=== PATIENT | female | born 1935 | race Caucasian/White ===

== ENCOUNTER 2020-05-18 17:22 | Inpatient (IN) | payer MEDICARE, OTHER, SELFPAY ==
[2020-05-18] VITALS (7 sets, daily range): BP systolic 125–148; BP diastolic 58–82; PULSE 86–101; RESP 15–30; TEMP 36.9–38.3; O2SAT 88–98; BMI 36.3
--- NOTE | 2020-05-18 17:35 | ED_ITS ---
HPI - SOB/Dyspnea General Chief Complaint: Dyspnea Stated Complaint: DIFF BREATHING Time Seen by Provider: 05/18/20 17:34 Source: patient and EMS Mode of arrival: EMS Limitations: no limitations History of Present Illness HPI Narrative: picked up by EMS, home health aid called, they found her to be 88% on 2.5L MD elicited complaint: shortness of breath and cough Pertinent past history: COPD Onset (ago): hour(s) Timing: constant Severity: moderate Known history of: COPD Treatment prior to arrival: bronchodilator (duoneb) Related Data Home oxygen amount: 2 liters Allergies Allergy/AdvReac Type Severity Reaction Status Date / Time pine nut [PINE NUT] Allergy Unknown RASH Unverified 04/20/20 17:53 Review of Systems Constitutional: Constitutional: Reports no additional constitutional complaints Eyes: Eyes: Reports no additional eye complaints ENT: Denies dizziness Cardiovascular: Cardiovascular: Reports no additional cardiovascular complaints Respiratory: Respiratory: Reports as per HPI Gastrointestinal: Gastrointestinal: Reports no additional gastrointestinal complaints Genitourinary: Genitourinary: Reports no additional female genitourinary complaints Musculoskeletal: Musculoskeletal: Reports no additional musculoskeletal complaints Integumentary/Breasts: Skin/Breast: Denies rash Neurologic: Reports system reviewed and no additional complaints, except as documented, Denies dizziness and Denies Sensory deficit (Neuro) Psychiatric: Psychiatric: Denies anxiety [facility] Past Medical History Medical History (Updated 05/18/20 @ 17:34 by Jamila Crouch) COPD (chronic obstructive pulmonary disease) Social History Social History Smoked in Last 30 Days: No Use of substances other than those prescribed or required for medical reasons: No Advance Directives: No Advance Directives Information Provided: Yes Physical Exam Vital Signs: Vital Signs: Vital Signs Temp Pulse Resp BP Pulse Ox 05/18/20 20:18 90 18 96 05/18/20 18:50 98.4 F 86 21 H 141/63 H 98 05/18/20 17:29 98.4 F 101 H 30 H 148/82 H 88 L Body Mass Index 36.3 Const: Other: Ill appearing short of breath, elderly Nutritional Appearance: obese Orientation/consciousness: oriented to person and patient oriented x3 Limitations: no limitations HENMT: Head: Yes normal to inspection Ears: external ears normal General nose exam: Normal external nose present Mouth: Normal oral and palatal mucosa present and oropharynx normal Throat: Yes posterior oropharynx normal Eyes: General: appearance normal, both eyes and all related structures Neck: Other: supple Neck: Yes normal visual inspection Chest: Chest palpation & inspection: normal inspection of the chest Resp: Other: distant poor air movement diffuse rhonchi Cardio: Jugular venous distension: no JVD Rate: regular rate Rhythm: regular rhythm Heart sounds: S1 normal heart sound present and S2 normal heart sound present GI: Inspection: Yes normal to inspection Palpation (GI): Soft to palpation, nontender and No hepatosplenomegaly present Auscultation: normal bowel sounds : General: Yes no CVA tenderness Back/Spine/Pelvis: Back: no CVA tenderness Skin: General skin exam: no rashes or lesions noted Neuro: General: oriented to person and patient oriented x3 Cranial nerves: Yes CN's II-XII intact bilaterally Motor exam (neuro): 5/5 motor strength present throughout Sensory Exam: No Sensory deficit (Neuro) Extrem: General: Yes normal to inspection Psych: Appearance: grossly normal Course Course Course Narrative: This appears to be COPD exacerbation no sepsis will treat with nebs and steroids Reevaluation(s) Reevaluation #1: Patient treated with some lasix improved on bipap will admit Reevaluation #2: EKG afib rate 86, no st or twave changes MDM - SOB/Dyspnea MDM Narrative Medical decision making narrative: Patient with slight CHF and COPD exacerbation, blood cx sent in response to leukocytosis but do no suspect sepsis Differential Diagnosis Differential diagnosis: Likely acute exacerbation of chronic obstructive airways disease and congestive heart failure Lab Data Result diagrams: 05/18/20 18:43 05/18/20 18:43 Labs: Lab Results 05/18/20 05/18/20 05/18/20 Range/Units 18:43 18:43 18:43 WBC 16.2 H (4.8-10.8) X10*3/uL RBC 4.30 (4.20-5.50) X10*6/uL Hgb 13.2 (12.0-16.0) g/dl Hct 40.3 (37-47) % MCV 93.7 (80-98) fL MCH 30.7 (27.0-33.0) pg MCHC 32.8 (31.0-35.0) g/dl RDW 14.0 (11.0-16.0) % Plt Count 215 (160-400) X10*3/uL MPV 11.6 (9.4-12.3) fL Immature Gran % (Auto) 0.4 (0.0-0.4) % Neut % (Auto) 87.1 H (45-73) % Lymph % (Auto) 3.9 L (20-40) % [place] % (Auto) 7.9 (2-11) % Eos % (Auto) 0.4 (0-4) % Baso % (Auto) 0.3 (0-2) % Lymph # (Auto) 0.6 L (1.2-4.9) X10*3/uL [place] # (Auto) 1.3 H (0.1-1.2) X10*3/uL Eos # (Auto) 0.1 (0.0-0.4) X10*3/uL Baso # (Auto) 0.1 (0.0-0.2) X10*3/uL Abs Immat Gran (auto) 0.07 H (0.00-0.03) X10*3/uL Absolute Neuts (auto) 14.1 H (2.0-8.3) X10*3/uL Absolute Nucleated RBC 0.000 (0.0-0.012) X10*3/uL Nucleated RBC % (auto) 0.0 (0.0-0.2) /100WBC Smear Tech's Comments VERIFIED Sodium 137 (135-145) mmol/L Potassium 4.5 (3.3-5.1) mmol/l Chloride 103 (96-108) mmol/L Carbon Dioxide 22 (22-29) mmol/L Anion Gap 17 (12-20) BUN 20 H (9-16) mg/dL Creatinine 0.85 (0.5-1.4) mg/dL Estim Creat Clear Calc 58.4 Estimated GFR > 60 Random Glucose 143 H (60-115) mg/dL Calcium 9.0 (8.4-10.2) mg/dL Troponin I High Sens 6.6 (<3.5-17.0) ng/L Critical Care Time Critical Care Time Attestation: I spent 40 minutes of critical care, with interventions, assessments, speaking to patient, consultants, and family. Discharge Plan Discharge Clinical Impression: Acute exacerbation of chronic obstructive airways disease Congestive heart failure Qualifiers: Heart failure type: combined systolic and diastolic Heart failure chronicity: acute on chronic Qualified Code(s): I50.43 - Acute on chronic combined systolic (congestive) and diastolic (congestive) heart failure
--- NOTE | 2020-05-18 17:41 | ECG_ITS ---
Test Reason : SOB Blood Pressure : / mmHG Vent. Rate : 088 BPM Atrial Rate : 300 BPM P-R Int : 000 ms QRS Dur : 106 ms QT Int : 370 ms P-R-T Axes : 000 -04 041 degrees QTc Int : 447 ms Atrial fibrillation Nonspecific T wave abnormality Abnormal ECG When compared with ECG of 27-AUG-2019 03:36, No significant changes seen Referred By: George Chiang Electronically Signed By:MUNIRA FARFAN MD
--- NOTE | 2020-05-18 17:42 | XR_ITS ---
EXAMINATION: XR CHEST CLINICAL INFORMATION: Shortness of breath COMPARISON: Chest x-ray 08/04/2019 TECHNIQUE: Frontal portable view of the chest was obtained. 5:48 PM FINDINGS: Chin overlies lung apex. Lung volume is low. Status post median sternotomy for cardiac valve repair. Dual-lead pacemaker in right atrium and right ventricle which remains unchanged position since prior study. There is mild increased vascular markings and mild central hilar vascular prominence consistent with a mild congestive heart failure. No overt pulmonary edema. Slight blunting left costophrenic angle due to a small left pleural effusion. No focal dense consolidation. There is no pneumothorax. IMPRESSION: Mild pulmonary vascular congestion with small left pleural effusion.
[2020-05-18] MEDS: methylPREDNISolone Sod Succ/PF 125 MG/2 ML VIAL IVPUSH (18:05)
[2020-05-18 18:57] LABS: Basophils Absolute Auto 0.1 X10*3/uL (0.0-0.2); Basophils Percent Auto 0.3 % (0-2); Eosinophils Absolute Auto 0.1 X10*3/uL (0.0-0.4); Eosinophils Percent Auto 0.4 % (0-4); Hematocrit 40.3 % (37-47); Hemoglobin 13.2 g/dl (12.0-16.0); Imm Gran Abs Auto 0.07 X10*3/uL (0.00-0.03); Imm Gran Pct Auto 0.4 % (0.0-0.4); Lymphocytes Absolute Auto 0.6 X10*3/uL (1.2-4.9); Lymphocytes Percent Auto 3.9 % (20-40); MANUAL DIFF FLAG SCAN; Mean Corpuscular HGB Conc 32.8 g/dl (31.0-35.0); Mean Corpuscular Hemoglobin 30.7 pg (27.0-33.0); Mean Corpuscular Volume 93.7 fL (80-98); Mean Platelet Volume 11.6 fL (9.4-12.3); Monocytes Absolute Auto 1.3 X10*3/uL (0.1-1.2); Monocytes Percent Auto 7.9 % (2-11); Neutrophils Absolute Auto 14.1 X10*3/uL (2.0-8.3); Neutrophils Percent Auto 87.1 % (45-73); Platelet Count 215 X10*3/uL (160-400); SCAN SMEAR FLAG 1; White Blood Count 16.2 X10*3/uL (4.8-10.8)
[2020-05-18 19:30] LABS: Anion Gap 17 (12-20); Blood Urea Nitrogen 20 mg/dL (9-16); Carbon Dioxide 22 mmol/L (22-29); Chloride 103 mmol/L (96-108); Creatinine Clr Calc Pharmacy 58.4; Estimated Glomerular Filt Rate > 60; Glucose Random 143 mg/dL (60-115); Potassium 4.5 mmol/l (3.3-5.1); Sodium 137 mmol/L (135-145)
[2020-05-18 19:37] LABS: Troponin-I High Sensitivity 6.6 ng/L (<3.5-17.0)
--- NOTE | 2020-05-18 19:52 | PC.NURSE ---
pt tolerating bipap well 40% o2, 5 peep. 98% on machine.
[2020-05-18 19:55] LABS: SLIDE REVIEW VERIFIED
--- NOTE | 2020-05-18 20:50 | PC.NURSE ---
PT TAKEN OFF BIPAP, PLACED ON 2.5 L NC AT THIS TIME. PTTOLERATING WELL. PLAN FOR LASIX IV
[2020-05-18] MEDS: Furosemide 20 MG/2 ML VIAL IVPUSH (21:21)
--- NOTE | 2020-05-18 21:22 | PC.NURSE ---
pt incontinent of stool. cleaned. carina wick applied for patient due to lasix administration. rectal temp revelaed 100.9. dr medina aware. blood cultures drawn and sent
[2020-05-18 21:42] LABS: Pt Ventilation O2% 2 L
[2020-05-18 21:45] LABS: ABG PCO2 38 mmhg (32-45); Base Excess ABG 0.2; Blood Gas Serial # 5414; HCO3 ABG 24 mmol/l (22-26); Oxygen Saturation ABG 93.2 %; PO2 ABG 71 mmhg (83-108); pH ABG 7.42 (7.35-7.45)
--- NOTE | 2020-05-18 21:59 | PC.NURSE ---
hospitalist at bedside
[2020-05-18 22:39] LABS: B Type Natriuretic Peptide 113 pg/mL (<100)
--- NOTE | 2020-05-18 23:21 | PC.NURSE ---
pending report to floor
--- NOTE | 2020-05-18 23:44 | PC.NURSE ---
pt report given at this time.
[2020-05-19] VITALS (8 sets, daily range): BP systolic 99–129; BP diastolic 54–69; PULSE 69–85; RESP 16–20; TEMP 36.2–36.7; O2SAT 93–96; BMI 37.8
--- NOTE | 2020-05-19 00:24 | PM.IMHP ---
History of Present Illness Date of Service: 05/18/20 Chief Complaint: shortness of breath this is a 85-year-old female with past medical history of COPD on home oxygen, AFib,diastolic heart failure who presents to the hospital with complaints of sudden onset shortness of breath. Patient reports that she was sitting at around 4:00 p.m. when she started suddenly feeling short of breath. patient denies experiencing any chest pain, no nausea or vomiting, denies any cough or sputum production. She has not had any fever but has been she is feeling chills. She has not had any sick contacts and no recent travel. Patient reports no abdominal pain nausea or vomiting. No urinary symptoms and reports chronic lower extremity edema that has not changed. She denies any orthopnea or PND. She reports that her respiratory status was her usual baseline prior to today at 4:00 p.m.. On initial arrival to the ED patient had a pulse rate of 101, respiratory rate of 30, felt so sure of 148/82 satting 88% on 2 L. patient uses 2.5 L of oxygen at home Labs are significant for WBC count of 16.2, ABG shows a pH of 7.42 with a normal CO2 a BNP is 113 ( chronically runs low) x-ray of the chest shows pulmonary congestion patient will be admitted for management of CHF exacerbation past medical history: AFib on Coumadin, COPD, chronic diastolic heart failure with ejection fraction of 66 with present, bioprosthetic mitral valve, hypothyroidism, hypertension past surgical history: Cholecystectomy, mitral valve replacement family history: Liver cancer in her mother and her father had throat cancer social history: Comes from home, walks with a use of a walker,has home health care that visits her, denies tobacco alcohol or use any illicit drugs, Review of Systems Review of Systems: Yes all other systems are reviewed and are negative ENT: Denies dizziness Neurologic: Reports system reviewed and no additional complaints, except as documented, Denies dizziness and Denies Sensory deficit (Neuro) [facility] Medical History COPD (chronic obstructive pulmonary disease) Social History Smoked in Last 30 Days: No Use of substances other than those prescribed or required for medical reasons: No Advance Directives: No Advance Directives Information Provided: Yes Meds Allergies Allergy/AdvReac Type Severity Reaction Status Date / Time pine nut [PINE NUT] Allergy Unknown RASH Unverified 04/20/20 17:53 Home Medications Medication Instructions Recorded Confirmed Type diltiazem HCl [Tiadylt ER] 1 cap PO DAILY 05/18/20 05/18/20 History fluticasone furoate-vilanterol 1 puff PO DAILY 05/18/20 05/18/20 History [Breo Ellipta] furosemide 1 tab PO DAILY 05/18/20 05/18/20 History levothyroxine 1 tab PO DAILY 05/18/20 05/18/20 History mirabegron [Myrbetriq] 1 tab PO DAILY 05/18/20 05/18/20 History omeprazole 1 cap PO DAILY 05/18/20 05/18/20 History potassium chloride 1 tab PO DAILY 05/18/20 05/18/20 History solifenacin 1 tab PO DAILY 05/18/20 05/18/20 History warfarin 1 tab PO DAILY 05/18/20 05/18/20 History zolpidem 1 tab PO BEDTIME PRN 05/18/20 05/18/20 History Physical Exam Vital Signs and Narrative: Vital Signs: Last Vital Signs Temp 98.9 F 05/18/20 22:42 Pulse 90 05/18/20 22:42 Resp 15 05/18/20 22:42 BP 128/58 L 05/18/20 22:42 Pulse Ox 93 05/18/20 22:42 Body Mass Index 36.3 Const: General: cooperative and no acute distress Orientation/consciousness: patient oriented x3 Eyes: General: appearance normal, both eyes and all related structures Pupils: Equal, round and reactive pupils present Resp: Effort & Inspection: normal respiratory effort and able to speak in complete sentences Auscultation: rhonchi Cardio: Rate: regular rate Rhythm: regular rhythm GI: Palpation (GI): Soft to palpation Auscultation: normal bowel sounds Skin: General skin exam: no rashes or lesions noted Neuro: General: patient oriented x3 Cranial nerves: Yes Equal, round and reactive pupils present Cognition (Neuro): normal cognition Sensory Exam: No Sensory deficit (Neuro) Extrem: General: Yes normal to inspection and Yes no pedal edema Results Labs Labs: Laboratory Tests 05/18/20 05/18/20 05/18/20 18:43 18:43 18:43 WBC 16.2 H RBC 4.30 Hgb 13.2 Hct 40.3 MCV 93.7 MCH 30.7 MCHC 32.8 RDW 14.0 Plt Count 215 MPV 11.6 Immature Gran % (Auto) 0.4 Neut % (Auto) 87.1 H Lymph % (Auto) 3.9 L [place] % (Auto) 7.9 Eos % (Auto) 0.4 Baso % (Auto) 0.3 Lymph # (Auto) 0.6 L [place] # (Auto) 1.3 H Eos # (Auto) 0.1 Baso # (Auto) 0.1 Abs Immat Gran (auto) 0.07 H Absolute Neuts (auto) 14.1 H Absolute Nucleated RBC 0.000 Nucleated RBC % (auto) 0.0 Smear Tech's Comments VERIFIED ABG pH ABG pCO2 ABG pO2 ABG HCO3 ABG O2 Saturation ABG Base Excess Oxygen Given Sodium 137 Potassium 4.5 Chloride 103 Carbon Dioxide 22 Anion Gap 17 BUN 20 H Creatinine 0.85 Estim Creat Clear Calc 58.4 Estimated GFR > 60 Random Glucose 143 H Calcium 9.0 Troponin I High Sens 6.6 B-Natriuretic Peptide 113 H 05/18/20 21:31 WBC RBC Hgb Hct MCV MCH MCHC RDW Plt Count MPV Immature Gran % (Auto) Neut % (Auto) Lymph % (Auto) [place] % (Auto) Eos % (Auto) Baso % (Auto) Lymph # (Auto) [place] # (Auto) Eos # (Auto) Baso # (Auto) Abs Immat Gran (auto) Absolute Neuts (auto) Absolute Nucleated RBC Nucleated RBC % (auto) Smear Tech's Comments ABG pH 7.42 ABG pCO2 38 ABG pO2 71 L ABG HCO3 24 ABG O2 Saturation 93.2 ABG Base Excess 0.2 Oxygen Given 2 L Sodium Potassium Chloride Carbon Dioxide Anion Gap BUN Creatinine Estim Creat Clear Calc Estimated GFR Random Glucose Calcium Troponin I High Sens B-Natriuretic Peptide ECG Interpretation: Accelerated Junctional rhythm Abnormal ECG When compared with ECG of 27-AUG-2019 03:36, Junctional rhythm has replaced Atrial fibrillation Imaging Chest x-ray: Radiologist's impression: Mild pulmonary vascular congestion with small left pleural effusion. Assessment and Plan (1) Acute exacerbation of CHF (congestive heart failure): Status: Acute (2) Atrial fibrillation: Status: Acute (3) Hypertension: Status: Acute (4) COPD (chronic obstructive pulmonary disease): Status: Acute this is a 85-year-old female with past medical history of COPD, and CHF who presents to the hospital with sudden onset of shortness of breath. # Hypoxic respiratory failure - patient uses 2.5 L of oxygen at baseline, found to be in the 80s on that much. - Most likely secondary to CHF exacerbation versus COPD - patient was placed on BiPAP for couple hours while in the ED but currently her respiratory status is within normal range, with no significant tachypnea. Patient is satting in the 90s currently 93 on 3 L of oxygen - COVID-19 PCR collected in the ED is pending Plan: - management of CHF with Lasix - will monitor respiratory status closely - follow COVID-19 PCR # acute on chronic CHF exacerbation - x-ray suggestive of pulmonary congestion, has elevated BNP most likely falsely low due to obesity - Trop negative, on Lasix at home Plan: - Will start on 40 mg IV Lasix b.i.d. - strict I&O, daily weight, low-sodium diet - echocardiogram # COPD - does not appear to have any COPD exacerbation as she has no cough or sputum production, and no wheezing on exam Plan: - Continue home inhalers, DuoNeb p.r.n. # atrial fibrillation - continue diltiazem, and Coumadin - PT INR stat, and then daily # hypertension - continue diltiazem # hypothyroidism - continue levothyroxine DVT prophylaxis: Coumadin date of service
[2020-05-19 01:09] LABS: INTERNATIONAL NORM RATIO 3.4 (0.9-1.1); Prothrombin Time 41.2 SEC (10.8-13.0)
[2020-05-19] MEDS: Furosemide 40 MG/4 ML VIAL IVPUSH ×3 (01:26→16:09)
[2020-05-19] MEDS: 0.9 % Sodium Chloride Flush 3 ML SYRINGE IVFLUSH ×4 (01:27→21:12)
[2020-05-19] MEDS: Zolpidem Tartrate 5 MG TABLET 10 MG PO ×2 (01:27→21:26)
[2020-05-19 05:40] LABS: Basophils Percent Auto 0.1 % (0-2); Hematocrit 36.3 % (37-47); Hemoglobin 11.9 g/dl (12.0-16.0); Imm Gran Abs Auto 0.04 X10*3/uL (0.00-0.03); Imm Gran Pct Auto 0.3 % (0.0-0.4); Lymphocytes Absolute Auto 0.4 X10*3/uL (1.2-4.9); Lymphocytes Percent Auto 2.6 % (20-40); MANUAL DIFF FLAG SCAN; Mean Corpuscular HGB Conc 32.8 g/dl (31.0-35.0); Mean Corpuscular Hemoglobin 30.2 pg (27.0-33.0); Mean Corpuscular Volume 92.1 fL (80-98); Mean Platelet Volume 11.7 fL (9.4-12.3); Monocytes Absolute Auto 0.2 X10*3/uL (0.1-1.2); Monocytes Percent Auto 1.7 % (2-11); Neutrophils Absolute Auto 13.1 X10*3/uL (2.0-8.3); Neutrophils Percent Auto 95.3 % (45-73); Platelet Count 216 X10*3/uL (160-400); Red Blood Count 3.94 X10*6/uL (4.20-5.50); Red Cell Distribution Width 13.7 % (11.0-16.0); SCAN SMEAR FLAG 1; White Blood Count 13.8 X10*3/uL (4.8-10.8)
[2020-05-19] MEDS: Levothyroxine Sodium 88 MCG TABLET PO (06:01)
[2020-05-19 06:04] LABS: Anion Gap 13 (12-20); Blood Urea Nitrogen 23 mg/dL (9-16); Carbon Dioxide 24 mmol/L (22-29); Chloride 103 mmol/L (96-108); Creatinine Clr Calc Pharmacy 55.8; Estimated Glomerular Filt Rate > 60; Glucose Random 201 mg/dL (60-115); Potassium 3.9 mmol/l (3.3-5.1); Sodium 136 mmol/L (135-145)
[2020-05-19 06:08] LABS: INTERNATIONAL NORM RATIO 3.4 (0.9-1.1)
[2020-05-19 06:11] LABS: SLIDE REVIEW VERIFIED
--- NOTE | 2020-05-19 07:57 | MHC.PIE ---
P: PATIENT HAS ACTIVE CARDIAC HISTORY--PACEMAKER, CHF, ATRIAL FIBRILLATION--AND CURRENTLY BEING TREATED FOR CHF EXACERBATION WITH IV LASIX, YET IS NOT A TELEMETRY PATIENT I: ASSESS PATIENT, DISCUSS WITH MD E: PATIENT ALERT AND ORIENTED, HISTORY ABOVE. NO CHEST PAIN, NO CURRENT DIFFICULTY BREATHING, BUT PRESENTED THAT WAY, AND DOES HAVE ORTHOPNEA, CURRENTLY IS ON 3 LPM NASAL CANNULA. DISCUSSED WITH MD, AND NEW ORDER FOR TELEMETRY, WHICH WAS APPLIED, AND PATIENT SEEN TO BE IN ATRIAL FIBRILLATION, CONTROLLED RATE, WITH PACING FROM DUAL-CHAMBERED VENTRICULAR PACER, BUT PER BOOT AND SHOE REPAIRMAN, PATIENT DOES NOT HAVE CONSISTENT CAPTURE ON ALL PACED BEATS--I.E. THE PACER FIRES AFTER SOME OF HER QRS COMPLEXES AND CAPTURE IS INCONSISTENT. MD WAS UPDATED ABOUT THIS.
[2020-05-19] MEDS: dilTIAZem HCL CD 120 MG CAP.ER.DEG PO (08:48)
[2020-05-19] MEDS: Omeprazole 20 MG CAPSULE.DR PO (08:48)
[2020-05-19] MEDS: Mirabegron 50 MG TAB.ER.24H PO (08:48)
--- NOTE | 2020-05-19 12:50 | MHC.CM.PN ---
IMM 05/19/20 Female 83DX Difficulty breathing. Lives alone with assist from state director. Pt requires assist ADLs. DP resume services in place INVOICE CLASSIFICATION CLERK C transport.
--- NOTE | 2020-05-19 16:54 | HO.PM.IMPN ---
Subjective Subjective Date of Service: 05/19/20 Interval History: Seen in f/u respiratory failure copd exacerbation, respiratory failure and required bipap, doing well this morning. Cardiovascular Cardiovascular: Denies chest pain Respiratory No SOB Neurologic Neurologic: Denies Sensory deficit (Neuro) Physical Exam Vital Signs: Vital Signs: Vital Signs Temp Pulse Resp BP Pulse Ox 05/19/20 15:21 97.6 F 69 18 114/55 L 93 05/19/20 12:00 97.1 F 78 18 116/64 94 05/19/20 08:48 85 107/54 L 05/19/20 08:00 98.0 F 85 20 107/54 L 94 05/19/20 03:43 97.2 F 84 18 129/69 95 05/19/20 00:00 97.8 F 85 18 120/61 95 05/18/20 22:42 98.9 F 90 15 128/58 L 93 05/18/20 21:23 100.9 F H 95 16 125/60 92 05/18/20 20:51 100.9 F H 87 16 93 05/18/20 20:18 90 18 96 05/18/20 18:50 98.4 F 86 21 H 141/63 H 98 05/18/20 17:29 98.4 F 101 H 30 H 148/82 H 88 L Body Mass Index 37.8 Const: General: cooperative and no acute distress Orientation/consciousness: patient oriented x3 Eyes: General: appearance normal, both eyes and all related structures Pupils: Equal, round and reactive pupils present Resp: Effort & Inspection: normal respiratory effort and able to speak in complete sentences Auscultation: rhonchi Cardio: Rate: regular rate Rhythm: regular rhythm GI: Palpation (GI): Soft to palpation Auscultation: normal bowel sounds Skin: General skin exam: no rashes or lesions noted Neuro: General: patient oriented x3 Cranial nerves: Yes Equal, round and reactive pupils present Cognition (Neuro): normal cognition Sensory Exam: No Sensory deficit (Neuro) Extrem: General: Yes normal to inspection and Yes no pedal edema Objective Data Current Medications Generic Name Dose Route Start Last Admin Trade Name Freq PRN Reason Stop Dose Admin Acetaminophen 650 mg 05/19/20 00:46 Acetaminophen 325 Mg Tablet PO Q6H PRN Pain, Mild (Pain Scale 1-3) Albuterol/Ipratropium 3 ml 05/19/20 00:38 Albuterol/Iprat 2.5/0.5mg 3 Ml Ampul.Neb INHALE RQ4H PRN Shortness of Breath/Wheezing Diltiazem HCl 120 mg 05/19/20 09:00 05/19/20 08:48 Diltiazem Hcl Cd 120 Mg Cap.Er.Deg PO 120 mg DAILY LINNEA Administration Docusate Sodium 100 mg 05/19/20 00:46 Docusate Sodium 100 Mg Capsule PO DAILY PRN Constipation Furosemide 40 mg 05/19/20 00:45 05/19/20 16:09 Furosemide 40 Mg/4 Ml Vial IVPUSH 40 mg BID@0800,1700 [facility] Administration Protocol Levothyroxine Sodium 88 mcg 05/19/20 06:30 05/19/20 06:01 Levothyroxine Sodium 88 Mcg Tablet PO 88 mcg 0630 [facility] Administration Mirabegron 50 mg 05/19/20 09:00 05/19/20 08:48 Mirabegron 50 Mg Tab.Er.24h PO 50 mg DAILY [facility] Administration Omeprazole 20 mg 05/19/20 09:00 05/19/20 08:48 Omeprazole 20 Mg Capsule.Dr PO 20 mg DAILY LINNEA Administration Ondansetron HCl 4 mg 05/19/20 00:46 Ondansetron Hcl 4 Mg/2 Ml Vial IVPUSH Q8H PRN Nausea and Vomiting Sodium Chloride 3 ml 05/19/20 00:46 05/19/20 14:58 0.9 % Sodium Chloride Flush 3 Ml Syringe IVFLUSH 3 ml QSHIFT [facility] Administration Warfarin Sodium 5 mg 05/20/20 16:00 Warfarin Sodium 5 Mg Tablet PO DAILY@1600 [facility] Zolpidem Tartrate 10 mg 05/19/20 01:02 05/19/20 01:27 Zolpidem Tartrate 5 Mg Tablet PO 10 mg BEDTIME PRN Administration Insomnia Labs CBC & Chem 7: 05/19/20 05:26 05/19/20 05:26 Assessment and Plan (1) Acute exacerbation of CHF (congestive heart failure): Status: Acute (2) Atrial fibrillation: Status: Acute (3) Hypertension: Status: Acute (4) COPD (chronic obstructive pulmonary disease): Status: Acute Assessment and Plan: 85-year-old female with past medical history of COPD, and CHF who presents to the hospital with sudden onset of shortness of breath. # Hypoxic respiratory failure - patient uses 2.5 L of oxygen at baseline, found to be in the 80s now back to baseline - Most likely secondary to CHF ex - management of CHF with Lasix - will monitor respiratory status closely - follow COVID-19 PCR # acute on chronic CHF exacerbation - x-ray suggestive of pulmonary congestion, has elevated BNP most likely falsely low due to obesity - Trop negative, on Lasix at home - continue 40 mg IV Lasix b.i.d. - strict I&O, daily weight, low-sodium diet - echocardiogram tomorrow # COPD - does not appear to have any COPD exacerbation as she has no cough or sputum production, and no wheezing on exam Plan: - Continue home inhalers, DuoNeb p.r.n. # atrial fibrillation - continue diltiazem, and Coumadin - PT INR stat, and then daily # hypertension - continue diltiazem # hypothyroidism - continue levothyroxine DVT prophylaxis: Coumadin dc tomorrow
[2020-05-20 04:00] VITALS: BP 123/67; PULSE 71; RESP 16; TEMP 36.2; O2SAT 91
[2020-05-20] MEDS: Levothyroxine Sodium 88 MCG TABLET PO (05:01)
[2020-05-20 05:18] VITALS: BMI 35.5
[2020-05-20 08:00] VITALS: BP 129/51; PULSE 88; RESP 18; TEMP 36.4; O2SAT 93
[2020-05-20 08:25] VITALS: BP 123/67; PULSE 71
[2020-05-20] MEDS: dilTIAZem HCL CD 120 MG CAP.ER.DEG PO (08:25)
[2020-05-20] MEDS: Mirabegron 50 MG TAB.ER.24H PO (08:25)
[2020-05-20] MEDS: Omeprazole 20 MG CAPSULE.DR PO (08:25)
[2020-05-20] MEDS: Furosemide 40 MG/4 ML VIAL IVPUSH (08:25)
[2020-05-20] MEDS: 0.9 % Sodium Chloride Flush 3 ML SYRINGE IVFLUSH (08:25)
[2020-05-20 11:30] LABS: SARS COV2 PCR INHOUSE NEGATIVE (Negative)
[2020-05-20 12:00] VITALS: BP 106/53; PULSE 92; RESP 18; TEMP 36.2; O2SAT 93
--- NOTE | 2020-05-20 12:56 | HO.PM.IMPN ---
Subjective Subjective Date of Service: 05/20/20 Interval History: Seen in f/u respiratory failure copd exacerbation, respiratory failure and required bipap, doing well this morning. Review of Systems Gen no resp no sob Neurologic Neurologic: Denies Sensory deficit (Neuro) Physical Exam Vital Signs: Vital Signs: Vital Signs Temp Pulse Resp BP Pulse Ox 05/20/20 08:25 71 123/67 05/20/20 08:00 97.6 F 88 18 129/51 L 93 05/20/20 04:00 97.2 F 71 16 123/67 91 L 05/19/20 23:54 97.4 F 84 16 99/55 L 93 05/19/20 19:31 97.6 F 77 16 113/54 L 96 05/19/20 15:21 97.6 F 69 18 114/55 L 93 Body Mass Index 35.5 Const: General: cooperative and no acute distress Orientation/consciousness: patient oriented x3 Eyes: General: appearance normal, both eyes and all related structures Pupils: Equal, round and reactive pupils present Resp: Effort & Inspection: normal respiratory effort and able to speak in complete sentences Auscultation: rhonchi Cardio: Rate: regular rate Rhythm: regular rhythm GI: Palpation (GI): Soft to palpation Auscultation: normal bowel sounds Skin: General skin exam: no rashes or lesions noted Neuro: General: patient oriented x3 Cranial nerves: Yes Equal, round and reactive pupils present Cognition (Neuro): normal cognition Sensory Exam: No Sensory deficit (Neuro) Extrem: General: Yes normal to inspection and Yes no pedal edema Objective Data Current Medications Generic Name Dose Route Start Last Admin Trade Name Joy PRN Reason Stop Dose Admin Acetaminophen 650 mg 05/19/20 00:46 Acetaminophen 325 Mg Tablet PO Q6H PRN Pain, Mild (Pain Scale 1-3) Albuterol/Ipratropium 3 ml 05/19/20 00:38 Albuterol/Iprat 2.5/0.5mg 3 Ml Ampul.Neb INHALE RQ4H PRN Shortness of Breath/Wheezing Diltiazem HCl 120 mg 05/19/20 09:00 05/20/20 08:25 Diltiazem Hcl Cd 120 Mg Cap.Er.Deg PO 120 mg DAILY LINNEA Administration Docusate Sodium 100 mg 05/19/20 00:46 Docusate Sodium 100 Mg Capsule PO DAILY PRN Constipation Furosemide 40 mg 05/19/20 00:45 05/20/20 08:25 Furosemide 40 Mg/4 Ml Vial IVPUSH 40 mg BID@0800,1700 [facility] Administration Protocol Levothyroxine Sodium 88 mcg 05/19/20 06:30 05/20/20 05:01 Levothyroxine Sodium 88 Mcg Tablet PO 88 mcg 0630 [facility] Administration Mirabegron 50 mg 05/19/20 09:00 05/20/20 08:25 Mirabegron 50 Mg Tab.Er.24h PO 50 mg DAILY LINNEA Administration Omeprazole 20 mg 05/19/20 09:00 05/20/20 08:25 Omeprazole 20 Mg Capsule.Dr PO 20 mg DAILY [facility] Administration Ondansetron HCl 4 mg 05/19/20 00:46 Ondansetron Hcl 4 Mg/2 Ml Vial IVPUSH Q8H PRN Nausea and Vomiting Sodium Chloride 3 ml 05/19/20 00:46 05/20/20 08:25 0.9 % Sodium Chloride Flush 3 Ml Syringe IVFLUSH 3 ml QSHIFT [facility] Administration Warfarin Sodium 5 mg 05/20/20 16:00 Warfarin Sodium 5 Mg Tablet PO DAILY@1600 [facility] Zolpidem Tartrate 10 mg 05/19/20 01:02 05/19/20 21:26 Zolpidem Tartrate 5 Mg Tablet PO 10 mg BEDTIME PRN Administration Insomnia Labs CBC & Chem 7: 05/19/20 05:26 05/19/20 05:26 Microbiology Microbiology Results: Microbiology 05/18/20 20:55 Blood - Venous Blood Culture - Preliminary No growth after 24 hours. 05/18/20 20:55 Blood - Venous Blood Culture - Preliminary No growth after 24 hours. Assessment and Plan (1) Acute exacerbation of CHF (congestive heart failure): Status: Acute (2) Atrial fibrillation: Status: Acute (3) Hypertension: Status: Acute (4) COPD (chronic obstructive pulmonary disease): Status: Acute Assessment and Plan: 85-year-old female with past medical history of COPD, and CHF who presents to the hospital with sudden onset of shortness of breath. # Hypoxic respiratory failure-- d/t CHF, At baseline -continue IV Lasix for 1 more day -covid is negative # acute on chronic CHF exacerbation - x-ray suggestive of pulmonary congestion, has elevated BNP most likely falsely low due to obesity - Trop negative, on Lasix at home - continue 40 mg IV Lasix b.i.d., change to PO today - strict I&O, daily weight, low-sodium diet - echocardiogram tomorrow # COPD--no exacerbation # Atrial fibrillation - continue diltiazem, and Coumadin - daily INR # hypertension - continue diltiazem # hypothyroidism - continue levothyroxine DVT prophylaxis: Coumadin Possible d/c later today
--- NOTE | 2020-05-20 13:21 | PM.DS ---
DS: Providers Provider Date of admission: 05/18/20 22:44 Primary care physician: Elías Wiley DS: Diagnosis Discharge Diagnosis (1) Acute exacerbation of CHF (congestive heart failure): Status: Acute (2) Atrial fibrillation: Status: Acute (3) Hypertension: Status: Acute (4) COPD (chronic obstructive pulmonary disease): Status: Acute DS: Summary Hospital Course Hospital Course: 85 year female with diastolic CHF, COPD on home O2 2.5 liters, AFIB on coumadin who presented thought the ED with shortness of and increase leg edema. CXR suggested CHF despite low BNP (chronically runs low) Covid test was negative. He was hospitalized and managed with IV Lasix. Hospital course: patient was treated with IV Lasix 40 mg IV bid and has signficantly improved and is now improved. I will increase Lasix to 40 mg daily from 20. Echo was requested but not performed due to covid concern, now test is is negative but procedure not available over the week. Patient prefer to have done on outpatient basis. Has home health at home. Time Spent with Patient Time attestation: Total time spent providing and/or coordinating discharge services: Time spent: Greater than 30 minutes Physical Exam Vital Signs: Vital Signs: Vital Signs Temp Pulse Resp BP Pulse Ox 05/20/20 08:25 71 123/67 05/20/20 08:00 97.6 F 88 18 129/51 L 93 05/20/20 04:00 97.2 F 71 16 123/67 91 L 05/19/20 23:54 97.4 F 84 16 99/55 L 93 05/19/20 19:31 97.6 F 77 16 113/54 L 96 05/19/20 15:21 97.6 F 69 18 114/55 L 93 Body Mass Index 35.5 Const: General: cooperative and no acute distress Orientation/consciousness: patient oriented x3 Eyes: General: appearance normal, both eyes and all related structures Pupils: Equal, round and reactive pupils present Resp: Effort & Inspection: normal respiratory effort and able to speak in complete sentences Auscultation: rhonchi Cardio: Rate: regular rate Rhythm: regular rhythm GI: Palpation (GI): Soft to palpation Auscultation: normal bowel sounds Skin: General skin exam: no rashes or lesions noted Neuro: General: patient oriented x3 Cranial nerves: Yes Equal, round and reactive pupils present Cognition (Neuro): normal cognition Sensory Exam: No Sensory deficit (Neuro) Extrem: General: Yes normal to inspection and Yes no pedal edema DS: Data Data Completed and Pending Labs on day of discharge: Labs from last 24 hours 05/20/20 05/20/20 12:55 10:00 PT Pending INR Pending Coronavirus (PCR) NEGATIVE Preliminary micro results at discharge 05/18/20 20:55 Blood Culture - Preliminary Blood - Venous No growth after 24 hours. 05/18/20 20:55 Blood Culture - Preliminary Blood - Venous No growth after 24 hours. Discharge Plan Discharge Anticipated Discharge Date/Time: 05/20/20 13:16 Patient Disposition: Home Health Service Referrals: Elías Wiley [Primary Care Provider] - Discharge Medications: Continued potassium chloride 10 mEq tablet extended release 1 tab PO DAILY RF: 0 levothyroxine 88 mcg tablet 1 tab PO DAILY RF: 0 diltiazem HCl [Tiadylt ER] 120 mg capsule,extended release 24 hr 1 cap PO DAILY RF: 0 warfarin 5 mg tablet 1 tab PO DAILY RF: 0 omeprazole 20 mg capsule,delayed release(DR/EC) 1 cap PO DAILY RF: 0 zolpidem 10 mg tablet 1 tab PO BEDTIME PRN (Reason: insomnia) RF: 0 solifenacin 5 mg tablet 1 tab PO DAILY RF: 0 Myrbetriq 50 mg tablet extended release 24 hr 1 tab PO DAILY RF: 0 Breo Ellipta 100-25 mcg/dose blister with device 1 puff PO DAILY RF: 0 Changed furosemide 20 mg tablet 40 mg PO DAILY Qty: 0 RF: 0 Discharge Orders: Discharge Order (Routine); Ordered 05/20/20 Ordered By: Chris Amaya Diet: low salt diet Activity on Discharge: As tolerated Visit Report Forms: Patient Portal Discharge page Care Plan Goals: Recovery from heart failure exacerbation Health Concerns: Heart failure with associated shortness of breath Plan of Treatment: Take Lasix as recommended. The dose has been increase from 20 to 40 mg daily. Limit Salt intake and do not take excessive water, drink about 4 to 5 glassess day. weight yourself daily and if your weight goes over 2 Ib, contact you primary care doctor.
[2020-05-20 13:47] LABS: INTERNATIONAL NORM RATIO 2.9 (0.9-1.1); Prothrombin Time 34.8 SEC (10.8-13.0)
--- NOTE | 2020-05-20 14:13 | MHC.CM.PN ---
DISCHARGED PLANNED FOR TODAY. VELIA CONTACTED PT VIA HER ROOM PHONE TO DISCUSS DC NEEDS. PT REPORTS SHE IS UNSURE IF HER POLYSTYRENE BEAD MOLDER WOULD BE AVAILABLE HER NEPHEW WENDY TAKES CARE OF THESE THINGS. SHE PROVIDED A TELEPHONE NUMBER FOR WENDY ([phone]). VELIA CALLED AND SPOKE TO WENDY WHO REPORTS THERE WILL BE SOMEONE AVAILABLE TO ASSIST PT WHEN SHE GOES HOME AND HE WILL PROVIDE TRANSPORTATION. WENDY REPORTS HE WILL BE HERE AROUND 1500 HOURS TO GET THE PT AND WILL CALL THE UNIT NURSE WHEN HE ARRIVES. WENDY ALSO ASKED ABOUT PTS NEED FOR AN OUTPATIENT ECHO AND REPORTS HE WILL TRY TO SCHEDULE IT WITH HER BEHAVIORAL HEALTH CASE MANAGER. PT WILL DC HOME TODAY AT 1500 HOURS WITH RESUMPTION OF HER IMAGERY ANALYST SERVICES
== END 2020-05-20 15:30 | disposition home health service (06) | DRG 291 ==
LOC: HO.ED 20:57 → HO.IMC 23:14
PROVIDERS: Admitting Provider Internal Medicine; Emergency Provider Emergency Medicine; PCP Hospitalist; Visit Provider Internal Medicine
DX: I11.0 Hypertensive heart disease with heart failure (principal); J96.01 Acute respiratory failure with hypoxia; J44.1 Chronic obstructive pulmonary disease with (acute) exacerbation; I48.92 Unspecified atrial flutter; I50.33 Acute on chronic diastolic (congestive) heart failure; Z20.828 Contact with and (suspected) exposure to other viral communicable diseases; Z99.81 Dependence on supplemental oxygen; E03.9 Hypothyroidism, unspecified; E66.9 Obesity, unspecified; Z68.36 Body mass index [BMI] 36.0-36.9, adult; I48.91 Unspecified atrial fibrillation; Z79.01 Long term (current) use of anticoagulants; Z79.890 Hormone replacement therapy; Z79.899 Other long term (current) drug therapy
CPT/HCPCS: 36415; 71045; 80048; 82803; 83880; 84484; 85025; 85610; 87040; 87635; 93005; 96374; 96375; 96376; 99285; J1940; J2930

== ENCOUNTER → 2020-05-30 13:00 | Outpatient (BNVA) | payer MEDICARE, OTHER, SELFPAY | PROVIDERS: PCP Hospitalist; Visit Provider Internal Medicine | DX: I48.0 Paroxysmal atrial fibrillation (principal); Z51.81 Encounter for therapeutic drug level monitoring; Z79.01 Long term (current) use of anticoagulants | CPT/HCPCS: 85610; 99211 ==

== ENCOUNTER → 2020-07-04 13:04 | Outpatient (BNVA) | payer MEDICARE, OTHER, SELFPAY | PROVIDERS: PCP Hospitalist; Visit Provider Internal Medicine | DX: I48.0 Paroxysmal atrial fibrillation (principal); Z51.81 Encounter for therapeutic drug level monitoring; Z79.01 Long term (current) use of anticoagulants | CPT/HCPCS: 85610; 99211 ==

== ENCOUNTER → 2020-07-18 13:10 | Outpatient (BNVA) | payer MEDICARE, OTHER, SELFPAY | PROVIDERS: PCP Hospitalist; Visit Provider Internal Medicine | DX: I48.0 Paroxysmal atrial fibrillation (principal); Z51.81 Encounter for therapeutic drug level monitoring; Z79.01 Long term (current) use of anticoagulants | CPT/HCPCS: 85610; 99211 ==

== ENCOUNTER → 2020-08-16 12:59 | Outpatient (BNVA) | payer MEDICARE, OTHER, SELFPAY | PROVIDERS: PCP Hospitalist; Visit Provider Internal Medicine | DX: I48.0 Paroxysmal atrial fibrillation (principal); Z79.01 Long term (current) use of anticoagulants; Z51.81 Encounter for therapeutic drug level monitoring | CPT/HCPCS: 85610; 99211 ==

== ENCOUNTER → 2020-08-22 13:08 | Outpatient (BNVA) | payer MEDICARE, OTHER, SELFPAY | PROVIDERS: PCP Hospitalist; Visit Provider Internal Medicine Cardiovascular Disease | DX: Z45.018 Encounter for adjustment and management of other part of cardiac pacemaker (principal); I50.43 Acute on chronic combined systolic (congestive) and diastolic (congestive) heart failure; I48.20 Chronic atrial fibrillation, unspecified; J96.11 Chronic respiratory failure with hypoxia; Z95.2 Presence of prosthetic heart valve | CPT/HCPCS: 99212 ==

== ENCOUNTER → 2020-09-19 13:05 | Outpatient (BNVA) | payer MEDICARE, OTHER, SELFPAY | PROVIDERS: PCP Hospitalist; Visit Provider Internal Medicine | DX: I48.0 Paroxysmal atrial fibrillation (principal); Z51.81 Encounter for therapeutic drug level monitoring; Z79.01 Long term (current) use of anticoagulants | CPT/HCPCS: 85610; 99211 ==

== ENCOUNTER → 2020-09-25 13:06 | Outpatient (REF) | payer MEDICARE, OTHER, SELFPAY ==
--- NOTE | 2020-09-25 13:13 | CA_ITS ---
Transthoracic Echocardiogram Patient (Last, First, Middle): Itzel Olmedo M Gender: Female Date of : 1935 Age: 85 Procedure Date: 09/25/2020 Procedure Type: Transthoracic Echocardiogram Location: OP Height: 177.8 cm Weight: 92.99 kg BSA: 2.11 m2 Heart Rate: bpm BP: 120 / 80 mmHg Transportation Attendant: HAILEY Referring MD: Anish Sanabria MD Bed And Breakfast Cook: Anish Sanabria MD Symptoms: I48.20 - Chronic atrial fibrillation, unspecified Study Quality: Fair/Contrast ECG Rhythm: Atrial Fibrillation Conclusions: - 1. Normal LV systolic function 2. Normally function bioprosthetic mitral valve 3. Severely dilated left atrium 4. Moderately elevated right ventricular systolic pressure 5. No gross pericardial effusion Findings Procedure Information The patient receives contrast. Left Ventricle Normal left ventricular size, thickness, and systolic function. The visually estimated ejection fraction is between 55-60%. Diastolic function is indeterminate on the basis of available data. Right Ventricle Mildly increased right ventricular cavity size. Atria The left atrium is severely dilated. Interatrial shunt cannot be excluded. The right atrium was not well visualized. Aortic Valve There is mild calcification of the aortic valve. There is no aortic valve stenosis. There is mild aortic valve regurgitation. Mitral Valve A bioprosthetic mitral valve is present. The prosthetic mitral valve appears to be functioning normally. There is severe mitral annular calcification. There is no mitral valve regurgitation. There is no mitral valve stenosis. The valve is well seated with no abnormal rocking motion Pulmonic Valve The pulmonic valve was not well visualized. Tricuspid Valve Likely normal tricuspid valve structure and function. There is mild to moderate tricuspid valve regurgitation. Moderate pulmonary hypertension is present. Great Vessels The aorta was not well visualized. The pulmonary artery was not well visualized. Venous The inferior vena cava is normal in size and collapses greater than 50% with inspiration. Pericardium/Pleural There is no evidence of pericardial effusion. Prior Study Comparison Changes noted compared to prior study dated: 05/20/2019. RV systolic pressure is mildly reduced Measurements 2D Linear Measurements IVSd: 0.78 0.6-0.9/0.6-1.0 cm LVIDd: 4.57 3.9-5.3/4.2-5.9 cm LVIDd Index: 2.17 2.4-3.2/2.2-3.1 cm/m2 LVIDs: 3.61 2.0-3.6 cm LVPWd: 0.86 0.7-1.1 cm Ao Root: 3.60 2.1-3.5 cm LA Diam: 5.00 2.7-3.8/3.0-4.0 cm LAIDs Index: 2.37 1.5-2.3 cm/m2 LV Mass: 257.46 67-162/88-224 g LV Mass Index: 122.02 43-95/49-115 g/m2 LVOT Diam: 2.00 3.0+(-)1.3 cm Mitral Valve MV VTI: 0.41 MV Pk Alvin: 1.85 MV Mn Alvin: 1.08 MV Pk Grad: 14.00 MV Mn Grad: 6.00 MVA Continuity: 1.26 Aortic Valve AoV Pk Alvin: 1.21 AoV Mn Alvin: 0.81 AoV VTI: 0.21 AoV Pk Grad: 6.00 Aov Mn Grad: 3.00 LAZARO Cont.VTI: 2.39 LVOT LVOT Pk Alvin: 0.88 LVOT Mn Alvin: 0.54 LVOT VTI: 0.16 LVOT Pk Grad: 3.00 LVOT Mn Grad: 1.00 LVOT Diam: 2.00 LVOT Area: 3.14 Tricuspid Valve TR Pk Alvin: 3.47 TR Pk Grad: 48.00 RA Press: 3.00 RVSP: 51.00 Great Vessels Aorta Ao Root-2D: 3.60 2.0-3.7 cm Ao Asc: 3.50 2.1-3.4 cm Ao Arch: 3.10 Updated in Other Vendor System with Status of Final Anish Sanabria MD electronically signed on 09/26/2020 9:16:25 AM with status of Final
== END ==
LOC: HO.CARD 13:06
PROVIDERS: Visit Provider Internal Medicine Cardiovascular Disease
DX: I48.20 Chronic atrial fibrillation, unspecified (principal); I50.32 Chronic diastolic (congestive) heart failure; Z95.2 Presence of prosthetic heart valve
CPT/HCPCS: 93306; Q9957

== ENCOUNTER → 2020-10-03 13:19 | Outpatient (BNVA) | payer MEDICARE, OTHER, SELFPAY | PROVIDERS: PCP Hospitalist; Visit Provider Internal Medicine | DX: I48.0 Paroxysmal atrial fibrillation (principal); Z51.81 Encounter for therapeutic drug level monitoring; Z79.01 Long term (current) use of anticoagulants | CPT/HCPCS: 85610; 99211 ==

== ENCOUNTER → 2020-10-17 13:22 | Outpatient (BNVA) | payer MEDICARE, OTHER, SELFPAY | PROVIDERS: PCP Hospitalist; Visit Provider Internal Medicine | DX: I48.0 Paroxysmal atrial fibrillation (principal); Z51.81 Encounter for therapeutic drug level monitoring; Z79.01 Long term (current) use of anticoagulants | CPT/HCPCS: 85610; 99211 ==

== ENCOUNTER → 2020-10-30 13:03 | Outpatient (BNVA) | payer MEDICARE, OTHER, SELFPAY | PROVIDERS: PCP Hospitalist; Visit Provider Internal Medicine | DX: I48.0 Paroxysmal atrial fibrillation (principal); Z51.81 Encounter for therapeutic drug level monitoring; Z79.01 Long term (current) use of anticoagulants | CPT/HCPCS: 85610; 99211 ==

== ENCOUNTER → 2020-11-29 13:06 | Outpatient (BNVA) | payer MEDICARE, OTHER, SELFPAY | PROVIDERS: PCP Hospitalist; Visit Provider Internal Medicine | DX: I48.0 Paroxysmal atrial fibrillation (principal); Z51.81 Encounter for therapeutic drug level monitoring; Z79.01 Long term (current) use of anticoagulants | CPT/HCPCS: 85610; 99211 ==

== ENCOUNTER → 2020-12-19 13:07 | Outpatient (BNVA) | payer MEDICARE, OTHER, SELFPAY | PROVIDERS: PCP Hospitalist; Visit Provider Internal Medicine | DX: I48.0 Paroxysmal atrial fibrillation (principal); Z51.81 Encounter for therapeutic drug level monitoring; Z79.01 Long term (current) use of anticoagulants | CPT/HCPCS: 85610; 99211 ==

== ENCOUNTER → 2021-01-02 13:09 | Outpatient (BNVA) | payer MEDICARE, OTHER, SELFPAY | PROVIDERS: PCP Hospitalist; Visit Provider Internal Medicine | DX: I48.0 Paroxysmal atrial fibrillation (principal); Z51.81 Encounter for therapeutic drug level monitoring; Z79.01 Long term (current) use of anticoagulants | CPT/HCPCS: 85610; 99211 ==

== ENCOUNTER 2021-01-05 12:17 | Emergency (ER) | payer MEDICARE, OTHER, SELFPAY ==
--- NOTE | ~2021-01-05 | XR_ITS ---
EXAMINATION: XR CHEST CLINICAL INFORMATION: Confusion COMPARISON: 05/18/2020 TECHNIQUE: 2 views of the chest were obtained. FINDINGS: Ill-defined increased density posteriorly on lateral view may represent left lower lobe pneumonia. No definite pleural effusion or pulmonary edema. Stable cardiomediastinal silhouette. Chronic compression deformity of a midthoracic vertebral body. XR/XR chest 2V IMPRESSION: Possible left lower lobe pneumonia.
[2021-01-05 12:27] VITALS: BP 148/75; PULSE 87; RESP 20; TEMP 36.6; O2SAT 97; BMI 32.8
--- NOTE | 2021-01-05 13:22 | ECG_ITS ---
Test Reason : GENERAL MEDICINE Blood Pressure : / mmHG Vent. Rate : 079 BPM Atrial Rate : 079 BPM P-R Int : 270 ms QRS Dur : 106 ms QT Int : 418 ms P-R-T Axes : 046 -14 032 degrees QTc Int : 479 ms Atrial fibrillation Abnormal ECG When compared with ECG of 18-MAY-2020 18:47, No significant changes seen Referred By: Clementine Buchanan Electronically Signed By:Stefano Galeas
[2021-01-05 13:26] LABS: Glucose Urine UA NEG (NEG); Leukocyte Esterase Urine 2+ (NEG); Nitrite Urine NEG (NEG); UACC Culture Trigger YES; Urine Blood TRACE (NEG); Urine Ketones NEG (NEG); Urine Protein NEG (NEG-TRACE)
[2021-01-05 13:29] LABS: Appearance Urine CLOUDY; Color Urine YELLOW
--- NOTE | 2021-01-05 13:34 | ED_ITS ---
HPI - General Adult General Chief complaint: General Medical Stated complaint: MILD CONFUSION, ?UTI Time Seen by Provider: 01/05/21 12:24 Source: patient and EMS Mode of arrival: EMS Limitations: no limitations History of Present Illness HPI narrative: 85-year-old female with a past medical history of atrial fibrill ation currently on Coumadin with a mitral valve replacement and of permanent cardiac pacemaker in place, COPD with chronic respiratory failure with hypoxia currently on 2 L of nasal cannula oxygen daily, CHF and hypertension presenting to the ED via EMS with complaints of increased confusion with dysuria, increased urgency/frequency and foul-smelling urine for the past 2-3 days worse today. Reports she usually feels confused when she has a UTI. She denies any dizziness, lightheadedness, changes in vision, headache, nausea/vomiting, chest pain, worsening shortness of breath or needing to increase her nasal cannula oxygen, palpitations, abdominal pain, back pain, flank pain, hematuria, abnormal vaginal discharge, diarrhea, constipation, black or bloody stools or any other symptoms complaints or concerns at this time. Related Data Home Medications Medication Instructions Recorded Confirmed Breo Ellipta 1 puff PO DAILY 05/18/20 11/29/20 Myrbetriq 1 tab PO DAILY 05/18/20 11/29/20 diltiazem HCl [Tiadylt ER] 1 cap PO DAILY 05/18/20 11/29/20 levothyroxine 1 tab PO DAILY 05/18/20 11/29/20 omeprazole 1 cap PO DAILY 05/18/20 11/29/20 potassium chloride 1 tab PO DAILY 05/18/20 11/29/20 solifenacin 1 tab PO DAILY 05/18/20 11/29/20 warfarin 1 tab PO DAILY 05/18/20 01/02/21 zolpidem 10 mg tablet 5 mg PO BEDTIME PRN tab 08/22/20 11/29/20 ammonium lactate 12 % topical cream 1 appl TOPICAL BID 10/03/20 11/29/20 bisacodyl 10 mg rectal suppository 10 mg NV DAILY PRN 10/03/20 11/29/20 furosemide 40 mg tablet 40 mg PO DAILY 10/30/20 11/29/20 zolpidem 5 mg tablet 5 mg PO BEDTIME PRN 10/30/20 11/29/20 cephalexin 500 mg capsule 500 mg PO TID 11/29/20 11/29/20 estradiol VAGINAL 11/29/20 11/29/20 Previous Rx's Medication Instructions Recorded furosemide 40 mg PO DAILY #0 tab 05/20/20 cefuroxime axetil 500 mg PO BID 10 Days #20 tab 01/05/21 Allergies Allergy/AdvReac Type Severity Reaction Status Date / Time pine nut [PINE NUT] Allergy Unknown RASH Verified 01/05/21 12:30 Review of Systems Review of Systems: Constitutional : No Fever, No Chills, No Night Sweats, No Fatigue, No Malaise ENT/Mouth : No Ear Pain, No Nasal Congestion, No Sinus Pain, No sore throat, No Rhinorrhea Eyes: No Eye Pain, No Swelling, No Redness, No Foreign Body, No Discharge, No Vision Changes Cardiovascular : No Chest Pain, No SOB, No Dyspnea on Exertion, No Orthopnea, No Palpitations Respiratory : No Cough, No Sputum, No Wheezing, No Dyspnea Gastrointestinal : No Nausea, No Vomiting, No Diarrhea, No Constipation, No abdominal Pain, No Hematochezia, No Melena Genitourinary : Positive dysuria/urinary frequency/urgency, No Urinary Incontinence, No Urgency, No Flank Pain, No abnormal discharge Musculoskeletal : No joint pain, No Myalgias Skin : No lacerations Neuro : Positive general confusion, No Focal weakness, no general weakness, No Numbness, No Paresthesias, No Loss of Consciousness, No Dizziness, No Headache Yes all other systems are reviewed and are negative [facility] Past Medical History Attestation statement: The following information was validated with the patient. Medical History Cardiac pacemaker in situ Chronic atrial fibrillation Chronic respiratory failure with hypoxia Congestive heart failure COPD (chronic obstructive pulmonary disease) Hypertension Surgical History H/O mitral valve replacement History of permanent cardiac pacemaker placement Hx of mitral valve repair Social History Social History Household Members: None Housing: Condominium Do you presently have visiting nurse or other home services: Yes Alcohol intake: never Patient Tobacco Use Status: Former Tobacco user Smoked in Last 30 Days: No Second Hand Smoke Exposure: No Use of substances other than those prescribed or required for medical reasons: No Advance Directives: Yes Advance Directives Information Provided: No Advance Directives on File: No (has hcp does not have pw) service: No Current occupational status: employed Physical Exam Vital Signs: Vital Signs: Last Vital Signs Temp 97.2 F 01/05/21 15:13 Pulse 78 01/05/21 15:44 Resp 16 01/05/21 15:44 BP 141/62 H 01/05/21 15:44 Pulse Ox 98 01/05/21 15:44 Oxygen Flow Rate 2 01/05/21 12:27 Body Mass Index 32.8 vital signs have been reviewed as normal and appeared to be correct. Blood pressure hypertensive at 140/75. Heart rate normal. Respiration rate normal. Temperature normal. Oxygen saturation normal. Appearance: Alert. Oriented X3. No acute distress. Head: Normal external exam. Normocephalic. Atraumatic. Able to rotate head bilaterally. Eyes: PERRLA. EOMI. No nystagmus noted. Conjunctiva and sclera normal. Eyelids normal. Corneal reflex normal. ENT: EAC normal. TM's Normal. Hearing normal. Pharynx normal. Uvula midline. tongue midline. Moist mucous membranes. No trismus noted. No drooling noted. No muffled voice noted. No nystagmus noted. Neck: Normal inspection. Neck supple. FROM. No adenopathy. Trachea midline. Thyroid Normal. No meningeal signs. No neck mass noted. CVS: Normal heart rate and rhythm. Heart sound normal. No murmurs noted. Pulses normal throughout. Respiratory: No respiratory distress. Painless inspiration. Breath sounds normal. No wheezes/rales/rhonchi noted. Chest nontender. No accessory muscle usage noted or decreased air movement noted. Abdomen: Soft and nontender. Bowel sounds normal in all 4 quadrants. No distention noted. No organomegaly noted. No visible injury noted. Back: No CVA tenderness. Full range of motion noted. Skin: Skin warm and dry. Normal skin color. Normal skin turgor. No rashes/lesions/lacerations noted. Extremities: Mild lower extremity nonpitting edema bilaterally. No calf tenderness is noted. Extremities exhibit normal range of motion. Extremities nontender. Able to shrug shoulders bilaterally and keep up against resistance. Neuro: Oriented X 3. No motor deficit. No sensory deficit. Reflexes normal. Moving all extremities. No focal motor deficits. Cranial nerves II-XI intact bilaterally. Facial strength normal. Normal cognition. Speech normal. Gait normal. Strength 5/5 throughout. No pronator drift. No tremor noted. No fasciculations noted. No rigidity noted. Muscle tone normal throughout. No asterixis noted. Vqoyde-lt-ayou test normal. Heel to whaley test normal. Tandem gait normal. Does not sway with eyes open. Romberg test negative. Rapid alternating movement upper extremity normal. Rapid alternating movement lower extremity normal. Hand drop from overhead Misses face. NIHSS score 0. Course Course Course Narrative: 16pm - labs returned and INR mildly low at 1.8 otherwise all other labs are within normal limits. UA revealed +2 leukocytes negative nitrates. Chest x-ray lobe pneumonia no other acute processes are noted. - therefore will treat for UTI and pneumonia with ceftin. I spoke to the patient's nephew Rivera Dorsey and he reported that he does not believe that the patient needs a physical therapy evaluation and that he will be picking her up around 730 and he will shrimp picker her prescription for her UTI/pneumonia and bring it to her house. - therefore patient will be discharged on antibiotics and instructions to return if any new or worsening symptoms to follow up with primary care provider. Patient and nephew understand agree with this plan. Medical Decision Making [facility] Narrative Medical decision making narrative: 12:40pm - 85-year-old female with a past medical history of atrial fibrillation currently on Coumadin with a mitral valve replacement and of permanent cardiac pacemaker in place, COPD with chronic respiratory failure with hypoxia currently on 2 L of nasal cannula oxygen daily, CHF and hypertension presenting to the ED via EMS with complaints of increased confusion with dysuria, increased urgency/frequency and foul-smelling urine for the past 2-3 days worse today. Reports she usually feels confused when she has a UTI. Plan: Labs, EKG, UA then re-evaluate Medical Records Medical records reviewed: Yes I reviewed the patient's medical records. Lab Data Lab results reviewed: Yes I reviewed the patient's lab results. Result diagrams: 01/05/21 14:48 01/05/21 14:48 Labs: Lab Results 01/05/21 01/05/21 01/05/21 Range/Units 13:10 14:48 14:48 WBC 10.2 (4.8-10.8) X10*3/uL RBC 4.15 L (4.20-5.50) X10*6/uL Hgb 12.6 (12.0-16.0) g/dl Hct 38.8 (37-47) % MCV 93.5 (80-98) fL MCH 30.4 (27.0-33.0) pg MCHC 32.5 (31.0-35.0) g/dl RDW 14.1 (11.0-16.0) % Plt Count 229 (160-400) X10*3/uL MPV 11.4 (9.4-12.3) fL Immature Gran % (Auto) 0.6 H (0.0-0.4) % Neut % (Auto) 74.4 H (45-73) % Lymph % (Auto) 9.6 L (20-40) % [place] % (Auto) 12.7 H (2-11) % Eos % (Auto) 2.1 (0-4) % Baso % (Auto) 0.6 (0-2) % Lymph # (Auto) 1.0 L (1.2-4.9) X10*3/uL [place] # (Auto) 1.3 H (0.1-1.2) X10*3/uL Eos # (Auto) 0.2 (0.0-0.4) X10*3/uL Baso # (Auto) 0.1 (0.0-0.2) X10*3/uL Abs Immat Gran (auto) 0.06 H (0.00-0.03) X10*3/uL Absolute Neuts (auto) 7.6 (2.0-8.3) X10*3/uL Absolute Nucleated RBC 0.000 (0.0-0.012) X10*3/uL Nucleated RBC % (auto) 0.0 (0.0-0.2) /100WBC PT 20.9 H D (10.8-13.0) SEC INR 1.8 H (0.9-1.1) Sodium (135-145) mmol/L Potassium (3.3-5.1) mmol/L Chloride (96-108) mmol/L Carbon Dioxide (22-29) mmol/L Anion Gap (12-20) BUN (9-16) mg/dL Creatinine (0.5-1.4) mg/dL Estim Creat Clear Calc Estimated GFR Random Glucose (60-115) mg/dL Calcium (8.4-10.2) mg/dL Magnesium (1.6-2.6) mg/dL Total Bilirubin (0.0-1.0) mg/dL AST (5-31) U/L ALT (0-31) U/L Alkaline Phosphatase (39-117) U/L B-Natriuretic Peptide (<100) pg/mL Total Protein (6.5-8.0) g/dL Albumin (3.5-5.0) g/dL Urine Color YELLOW Urine Appearance CLOUDY Urine pH 7.0 (5.0-8.0) Ur Specific [place] 1.010 (1.005-1.025) Urine Protein NEG (NEG-TRACE) MG/DL Urine Glucose (UA) NEG (NEG) MG/DL Urine Ketones NEG (NEG) MG/DL Urine Blood TRACE (NEG) Urine Nitrite NEG (NEG) Ur Leukocyte Esterase 2+ H (NEG) Urine RBC 0-2 (0) /HPF Urine WBC 5-9 H (0-4) /HPF Ur Squamous Epith Cells 1+ /LPF Urine Bacteria 4+ /LPF 01/05/21 01/05/21 Range/Units 14:48 14:48 WBC (4.8-10.8) X10*3/uL RBC (4.20-5.50) X10*6/uL Hgb (12.0-16.0) g/dl Hct (37-47) % MCV (80-98) fL MCH (27.0-33.0) pg MCHC (31.0-35.0) g/dl RDW (11.0-16.0) % Plt Count (160-400) X10*3/uL MPV (9.4-12.3) fL Immature Gran % (Auto) (0.0-0.4) % Neut % (Auto) (45-73) % Lymph % (Auto) (20-40) % [place] % (Auto) (2-11) % Eos % (Auto) (0-4) % Baso % (Auto) (0-2) % Lymph # (Auto) (1.2-4.9) X10*3/uL [place] # (Auto) (0.1-1.2) X10*3/uL Eos # (Auto) (0.0-0.4) X10*3/uL Baso # (Auto) (0.0-0.2) X10*3/uL Abs Immat Gran (auto) (0.00-0.03) X10*3/uL Absolute Neuts (auto) (2.0-8.3) X10*3/uL Absolute Nucleated RBC (0.0-0.012) X10*3/uL Nucleated RBC % (auto) (0.0-0.2) /100WBC PT (10.8-13.0) SEC INR (0.9-1.1) Sodium 142 (135-145) mmol/L Potassium 4.3 (3.3-5.1) mmol/L Chloride 104 (96-108) mmol/L Carbon Dioxide 29 (22-29) mmol/L Anion Gap 13 (12-20) BUN 22 H (9-16) mg/dL Creatinine 0.80 (0.5-1.4) mg/dL Estim Creat Clear Calc 69.5 Estimated GFR > 60 Random Glucose 90 D (60-115) mg/dL Calcium 9.4 (8.4-10.2) mg/dL Magnesium 2.2 (1.6-2.6) mg/dL Total Bilirubin 0.6 (0.0-1.0) mg/dL AST 18 (5-31) U/L ALT 10 (0-31) U/L Alkaline Phosphatase 116 (39-117) U/L B-Natriuretic Peptide 95 (<100) pg/mL Total Protein 6.4 L (6.5-8.0) g/dL Albumin 3.9 (3.5-5.0) g/dL Urine Color Urine Appearance Urine pH (5.0-8.0) Ur Specific [place] (1.005-1.025) Urine Protein (NEG-TRACE) MG/DL Urine Glucose (UA) (NEG) MG/DL Urine Ketones (NEG) MG/DL Urine Blood (NEG) Urine Nitrite (NEG) Ur Leukocyte Esterase (NEG) Urine RBC (0) /HPF Urine WBC (0-4) /HPF Ur Squamous Epith Cells /LPF Urine Bacteria /LPF Imaging Data Chest x-ray: Attestation: I personally reviewed and interpreted this imaging study as follows: Radiologist's impression: FINDINGS: Ill-defined increased density posteriorly on lateral view may represent left lower lobe pneumonia. No definite pleural effusion or pulmonary edema. Stable cardiomediastinal silhouette. Chronic compression deformity of a midthoracic vertebral body. XR/XR chest 2V IMPRESSION: Possible left lower lobe pneumonia. ECG Data Attestation: I personally reviewed and interpreted this ECG as follows: Interpretation: EKG sinus rhythm with sinus arrhythmia with first-degree AV block with ventricular rate of 79 with a normal QRS duration normal QT/QTC interval. No acute ischemic changes are noted. Discharge Plan Discharge Clinical Impression: UTI (urinary tract infection), Pneumonia Patient Disposition: Home, Self-Care Instructions: Pneumonia (ED), Urinary Tract Infection in Older Adults (ED) Prescriptions: New cefuroxime axetil 500 mg tablet 500 mg PO BID 10 Days Qty: 20 RF: 0 No Action potassium chloride 10 mEq tablet extended release 1 tab PO DAILY RF: 0 levothyroxine 88 mcg tablet 1 tab PO DAILY RF: 0 diltiazem HCl [Tiadylt ER] 120 mg capsule,extended release 24 hr 1 cap PO DAILY RF: 0 warfarin 5 mg tablet 1 tab PO DAILY RF: 0 omeprazole 20 mg capsule,delayed release(DR/EC) 1 cap PO DAILY RF: 0 solifenacin 5 mg tablet 1 tab PO DAILY RF: 0 Myrbetriq 50 mg tablet extended release 24 hr 1 tab PO DAILY RF: 0 Breo Ellipta 100-25 mcg/dose blister with device 1 puff PO DAILY RF: 0 furosemide 20 mg tablet 40 mg PO DAILY Qty: 0 RF: 0 zolpidem 10 mg tablet 5 mg PO BEDTIME PRN (Reason: insomnia) RF: 0 ammonium lactate 12 % cream 1 appl topical BID RF: 0 bisacodyl 10 mg suppository 10 mg NV DAILY PRN (Reason: constipation) RF: 0 zolpidem 5 mg tablet 5 mg PO BEDTIME PRN (Reason: insomnia) RF: 0 furosemide 40 mg tablet 40 mg PO DAILY RF: 0 estradiol 0.01 % (0.1 mg/gram) cream vaginal RF: 0 cephalexin 500 mg capsule 500 mg PO TID RF: 0 Referrals: Elías Wiley [Primary Care Provider] - 2 days Print Language: Bulgarian
[2021-01-05 13:42] LABS: Bacteria Urine 4+ /LPF; RBC Urine 0-2 /HPF (0); Squamous Epithelial Cell Urine 1+ /LPF
[2021-01-05 14:36] VITALS: BP 156/76; PULSE 81; RESP 15; TEMP 36.6; O2SAT 98
[2021-01-05 14:55] LABS: MANUAL DIFF FLAG NO
[2021-01-05 14:56] LABS: Basophils Absolute Auto 0.1 X10*3/uL (0.0-0.2); Basophils Percent Auto 0.6 % (0-2); Eosinophils Absolute Auto 0.2 X10*3/uL (0.0-0.4); Eosinophils Percent Auto 2.1 % (0-4); Hematocrit 38.8 % (37-47); Hemoglobin 12.6 g/dl (12.0-16.0); Imm Gran Abs Auto 0.06 X10*3/uL (0.00-0.03); Imm Gran Pct Auto 0.6 % (0.0-0.4); Lymphocytes Percent Auto 9.6 % (20-40); Mean Corpuscular HGB Conc 32.5 g/dl (31.0-35.0); Mean Corpuscular Hemoglobin 30.4 pg (27.0-33.0); Mean Corpuscular Volume 93.5 fL (80-98); Mean Platelet Volume 11.4 fL (9.4-12.3); Monocytes Absolute Auto 1.3 X10*3/uL (0.1-1.2); Monocytes Percent Auto 12.7 % (2-11); Neutrophils Absolute Auto 7.6 X10*3/uL (2.0-8.3); Neutrophils Percent Auto 74.4 % (45-73); Platelet Count 229 X10*3/uL (160-400); Red Blood Count 4.15 X10*6/uL (4.20-5.50); Red Cell Distribution Width 14.1 % (11.0-16.0); White Blood Count 10.2 X10*3/uL (4.8-10.8)
[2021-01-05 15:01] LABS: INTERNATIONAL NORM RATIO 1.8 (0.9-1.1); Prothrombin Time 20.9 SEC (10.8-13.0)
[2021-01-05 15:13] VITALS: BP 171/66; PULSE 83; RESP 20; TEMP 36.2; O2SAT 99
[2021-01-05 15:24] LABS: Alanine Aminotransferase 10 U/L (0-31); Albumin Level 3.9 g/dL (3.5-5.0); Alkaline Phosphatase 116 U/L (39-117); Anion Gap 13 (12-20); Aspartate Amino Transferase 18 U/L (5-31); Bilirubin Total 0.6 mg/dL (0.0-1.0); Blood Urea Nitrogen 22 mg/dL (9-16); Calcium 9.4 mg/dL (8.4-10.2); Carbon Dioxide 29 mmol/L (22-29); Chloride 104 mmol/L (96-108); Creatinine Clr Calc Pharmacy 69.5; Estimated Glomerular Filt Rate > 60; Glucose Random 90 mg/dL (60-115); Magnesium 2.2 mg/dL (1.6-2.6); Potassium 4.3 mmol/L (3.3-5.1); Sodium 142 mmol/L (135-145); Total Protein 6.4 g/dL (6.5-8.0)
[2021-01-05 15:44] VITALS: BP 141/62; PULSE 78; RESP 16; O2SAT 98
[2021-01-05 15:56] LABS: B Type Natriuretic Peptide 95 pg/mL (<100)
[2021-01-05 19:13] VITALS: BP 159/85; PULSE 77; RESP 16; O2SAT 2
== END 2021-01-05 19:40 | disposition home or self-care (01) ==
PROVIDERS: Physician Assistant Medical; Emergency Provider Emergency Medicine Emergency Medical Services; PCP Hospitalist
DX: N39.0 Urinary tract infection, site not specified (principal); J18.9 Pneumonia, unspecified organism; I11.0 Hypertensive heart disease with heart failure; I50.9 Heart failure, unspecified; I48.91 Unspecified atrial fibrillation; J44.9 Chronic obstructive pulmonary disease, unspecified; J96.11 Chronic respiratory failure with hypoxia; Z99.81 Dependence on supplemental oxygen; Z87.891 Personal history of nicotine dependence; Z95.4 Presence of other heart-valve replacement; Z95.0 Presence of cardiac pacemaker; Z79.01 Long term (current) use of anticoagulants; Z79.899 Other long term (current) drug therapy
CPT/HCPCS: 36415; 51701; 71046; 80053; 81001; 81003; 83735; 83880; 85025; 85610; 87086; 93005; 99285

== ENCOUNTER → 2021-01-16 13:19 | Outpatient (BNVA) | payer MEDICARE, OTHER, SELFPAY | PROVIDERS: PCP Hospitalist; Visit Provider Internal Medicine | DX: I48.0 Paroxysmal atrial fibrillation (principal); Z51.81 Encounter for therapeutic drug level monitoring; Z79.01 Long term (current) use of anticoagulants | CPT/HCPCS: 85610; 99211 ==

== ENCOUNTER → 2021-01-22 13:03 | Outpatient (BNVA) | payer MEDICARE, OTHER, SELFPAY | PROVIDERS: PCP Hospitalist; Visit Provider Internal Medicine | DX: I48.0 Paroxysmal atrial fibrillation (principal); Z51.81 Encounter for therapeutic drug level monitoring; Z79.01 Long term (current) use of anticoagulants | CPT/HCPCS: 85610; 99211 ==

== ENCOUNTER → 2021-02-08 13:19 | Outpatient (BNVA) | payer MEDICARE, OTHER, SELFPAY | PROVIDERS: PCP Hospitalist; Visit Provider Internal Medicine | DX: I48.0 Paroxysmal atrial fibrillation (principal); Z51.81 Encounter for therapeutic drug level monitoring; Z79.01 Long term (current) use of anticoagulants | CPT/HCPCS: 85610; 99211 ==

== ENCOUNTER → 2021-02-13 13:18 | Outpatient (BNVA) | payer MEDICARE, OTHER, SELFPAY | PROVIDERS: PCP Hospitalist; Referring Provider Hospitalist; Visit Provider Internal Medicine Cardiovascular Disease | DX: I48.20 Chronic atrial fibrillation, unspecified (principal); I50.43 Acute on chronic combined systolic (congestive) and diastolic (congestive) heart failure; Z95.2 Presence of prosthetic heart valve; Z95.0 Presence of cardiac pacemaker; Z79.899 Other long term (current) drug therapy | CPT/HCPCS: 99212 ==

== ENCOUNTER → 2021-03-06 13:07 | Outpatient (BNVA) | payer MEDICARE, OTHER, SELFPAY | PROVIDERS: PCP Hospitalist; Visit Provider Internal Medicine | DX: I48.0 Paroxysmal atrial fibrillation (principal); Z51.81 Encounter for therapeutic drug level monitoring; Z79.01 Long term (current) use of anticoagulants | CPT/HCPCS: 85610; 99211 ==

== ENCOUNTER 2021-03-09 19:10 | Emergency (ER) | payer MEDICARE, OTHER, SELFPAY ==
--- NOTE | ~2021-03-09 | XR_ITS ---
EXAMINATION: XR SOFT TISSUE NECK CLINICAL INFORMATION: Evaluate for foreign body. COMPARISON: None available at the time of this dictation. TECHNIQUE: Two views of the soft tissue neck were obtained. FINDINGS: There is extensive soft tissue calcification of the thyroid cartilage, cricoid cartilage. No radiopaque foreign body. There are wires from cardiac prosthesis. Included lung apices are clear. Bony XR/XR soft tissue neck IMPRESSION: No radiodense foreign body found. Heavily calcified thyroid and cricoid cartilages.
[2021-03-09 19:15] VITALS: BP 130/61; PULSE 81; RESP 20; TEMP 36.6; O2SAT 94; BMI 35.3
--- NOTE | 2021-03-09 19:40 | ED_ITS ---
HPI - General Adult General Chief complaint: General Medical Stated complaint: choking Time Seen by Provider: 03/09/21 19:30 Source: patient and EMS Mode of arrival: EMS Limitations: no limitations History of Present Illness MD complaint: feels a piece of pork is stuck - no bones Onset (ago): hour(s) (started at 6pm tonight ) Location: mouth Severity: mild Relieving factors: none Exacerbating factors: other (swallowing) Associated symptoms: other (cannot drink liquids but she is tolerating secretions) Treatments prior to arrival: none Related Data Home Medications Medication Instructions Recorded Confirmed warfarin 5 mg tablet 1 tab PO DAILY 05/18/20 03/06/21 zolpidem 5 mg tablet 5 mg PO BEDTIME PRN 10/30/20 03/06/21 solifenacin 5 mg tablet 5 mg PO DAILY 02/13/21 03/06/21 diltiazem HCl 120 mg 1 cap PO DAILY 03/09/21 capsule,extended release 24 hr fluticasone furoate 100 1 puff PO DAILY 03/09/21 mcg-vilanterol 25 mcg/dose inhalation powder (Breo Ellipta) furosemide 40 mg tablet 1 tab PO DAILY 03/09/21 levothyroxine 88 mcg tablet 1 tab PO DAILY 03/09/21 mirabegron 50 mg tablet,extended 1 tab PO DAILY 03/09/21 release 24 hr (Myrbetriq) omeprazole 20 mg capsule,delayed 1 cap PO DAILY 03/09/21 release potassium chloride 10 mEq 1 tab PO DAILY 03/09/21 tablet,extended release Allergies Allergy/AdvReac Type Severity Reaction Status Date / Time pine nut [PINE NUT] Allergy Unknown RASH Verified 01/16/21 13:21 Review of Systems Review of Systems: Constitutional : No Weight loss, No Fever, No Chills, No Fatigue, No Malaise ENT/Mouth : No sore throat, No Rhinorrhea, pos diff swallowing Eyes: No Eye Pain, No Swelling, No Redness Cardiovascular : No Chest Pain, No SOB, No Dyspnea on Exertion, No Orthopnea, No Edema, No Palpitations Respiratory : No Cough, No Sputum, No Wheezing Gastrointestinal : No Nausea, No Vomiting, No Diarrhea, No Constipation, No abdominal Pain, No Hematochezia, No Melena Genitourinary : No Dysuria, No Urinary Frequency, No Hematuria, Musculoskeletal : No joint pain, No Myalgias, No Joint Swelling Skin : No Skin Lesions, No rash Neuro : No Weakness, No Numbness, No Dizziness, No Headache Psych : No Anxiety/Panic, No Depression Heme/Lymph: No Bruising, No Bleeding,No Lymphadenopathy Endocrine : No Polyuria, No Polydipsia All other systems reviewed and are negative [facility] Past Medical History Attestation statement: The following information was validated with the patient. Medical History Cardiac pacemaker in situ Chronic atrial fibrillation Chronic respiratory failure with hypoxia Congestive heart failure COPD (chronic obstructive pulmonary disease) Hypertension Surgical History H/O mitral valve replacement History of permanent cardiac pacemaker placement Hx of mitral valve repair Social History Social History Household Members: None [facility] Do you presently have visiting nurse or other home services: Yes Alcohol intake: never Patient Tobacco Use Status: Former Tobacco user Smoked in Last 30 Days: No Second Hand Smoke Exposure: No Use of substances other than those prescribed or required for medical reasons: No Advance Directives: No Advance Directives Information Provided: No service: No Current occupational status: employed Physical Exam Vital Signs: Vital Signs: Last Vital Signs Temp 97.9 F 03/09/21 19:15 Pulse 89 03/09/21 20:31 Resp 20 03/09/21 20:31 BP 126/96 H 03/09/21 20:31 Pulse Ox 94 03/09/21 20:31 Oxygen Flow Rate 2 03/09/21 19:15 Body Mass Index 35.3 Appearance: Alert. Oriented X3. No acute distress. Eyes: Pupils equal, round and reactive to light. ENT: Pharynx normal. I cannot visualize any FB, cannot tolerate water Neck: Normal inspection. Neck supple. CVS: Normal heart rate and rhythm. Pulses normal. Respiratory: No respiratory distress. Breath sounds normal. Abdomen: Soft and nontender. Skin: Skin warm and dry. Normal skin color. Normal skin turgor. Extremities: No lower extremity edema. No calf ttp Neuro: Oriented X 3. No motor deficit. No sensory deficit. Course Course Course Narrative: passed the pork can swallow now no vomiting, tolerating saliva, voice normal stable for DC Medical Decision Making MDM Narrative Medical decision making narrative: 86 yo female O2 dependent, CHF, MVR on coumadin here with FB sensation in throat after eating boneless pork no prior episodes, no airway issues - will obtain soft tissue neck, labs, attempt glucagon, dispo per improvement and findings. Lab Data Result diagrams: 03/09/21 20:26 03/09/21 20:27 Labs: Lab Results 03/09/21 03/09/21 03/09/21 Range/Units 20:26 20:26 20:27 WBC 11.0 H (4.8-10.8) X10*3/uL RBC 4.15 L (4.20-5.50) X10*6/uL Hgb 12.6 (12.0-16.0) g/dl Hct 38.4 (37-47) % MCV 92.5 (80-98) fL MCH 30.4 (27.0-33.0) pg MCHC 32.8 (31.0-35.0) g/dl RDW 13.7 (11.0-16.0) % Plt Count 234 (160-400) X10*3/uL MPV 11.3 (9.4-12.3) fL Immature Gran % (Auto) 0.5 H (0.0-0.4) % Neut % (Auto) 72.1 (45-73) % Lymph % (Auto) 10.4 L (20-40) % [place] % (Auto) 12.9 H (2-11) % Eos % (Auto) 3.6 (0-4) % Baso % (Auto) 0.5 (0-2) % Lymph # (Auto) 1.1 L (1.2-4.9) X10*3/uL [place] # (Auto) 1.4 H (0.1-1.2) X10*3/uL Eos # (Auto) 0.4 (0.0-0.4) X10*3/uL Baso # (Auto) 0.1 (0.0-0.2) X10*3/uL Abs Immat Gran (auto) 0.06 H (0.00-0.03) X10*3/uL Absolute Neuts (auto) 7.9 (2.0-8.3) X10*3/uL Absolute Nucleated RBC 0.000 (0.0-0.012) X10*3/uL Nucleated RBC % (auto) 0.0 (0.0-0.2) /100WBC PT 22.0 H (9.9-13.0) SEC INR 1.9 H (0.9-1.1) APTT 47.7 H (24.1-38.0) SEC Sodium 140 (135-145) mmol/L Potassium 4.3 (3.3-5.1) mmol/L Chloride 103 (96-108) mmol/L Carbon Dioxide 26 (22-29) mmol/L Anion Gap 15 (12-20) BUN 21 H (9-16) mg/dL Creatinine 0.86 (0.5-1.4) mg/dL Estim Creat Clear Calc 59.8 Estimated GFR > 60 Random Glucose 106 (60-115) mg/dL Calcium 9.4 (8.4-10.2) mg/dL Discharge Plan Discharge Clinical Impression: Food impaction of esophagus Patient Disposition: Home, Self-Care Instructions: Esophageal Foreign Body (ED) Additional Instructions: return to ED for any worsening symptoms or concerns INR 1.9 - TOUCH BASE WITH DOCTOR AND COUMADIN CL[facility]IC MAY NEED TO INCREASE DOSE FOR A DAY small bites of meat with good chewing Prescriptions: No Action warfarin 5 mg tablet 1 tab PO DAILY RF: 0 solifenacin 5 mg tablet 5 mg PO DAILY RF: 0 furosemide 40 mg tablet 1 tab PO DAILY RF: 0 potassium chloride 10 mEq tablet extended release 1 tab PO DAILY RF: 0 levothyroxine 88 mcg tablet 1 tab PO DAILY RF: 0 omeprazole 20 mg capsule,delayed release(DR/EC) 1 cap PO DAILY RF: 0 diltiazem HCl 120 mg capsule,extended release 24hr 1 cap PO DAILY RF: 0 Myrbetriq 50 mg tablet extended release 24 hr 1 tab PO DAILY RF: 0 Breo Ellipta 100-25 mcg/dose blister with device 1 puff PO DAILY RF: 0 zolpidem 5 mg tablet 5 mg PO BEDTIME PRN (Reason: insomnia) RF: 0
[2021-03-09 20:31] VITALS: BP 126/96; PULSE 89; RESP 20; O2SAT 94
[2021-03-09 20:33] LABS: MANUAL DIFF FLAG NO
[2021-03-09 20:42] LABS: Basophils Absolute Auto 0.1 X10*3/uL (0.0-0.2); Basophils Percent Auto 0.5 % (0-2); Eosinophils Absolute Auto 0.4 X10*3/uL (0.0-0.4); Eosinophils Percent Auto 3.6 % (0-4); Hematocrit 38.4 % (37-47); Hemoglobin 12.6 g/dl (12.0-16.0); Imm Gran Abs Auto 0.06 X10*3/uL (0.00-0.03); Imm Gran Pct Auto 0.5 % (0.0-0.4); Lymphocytes Absolute Auto 1.1 X10*3/uL (1.2-4.9); Lymphocytes Percent Auto 10.4 % (20-40); Mean Corpuscular HGB Conc 32.8 g/dl (31.0-35.0); Mean Corpuscular Hemoglobin 30.4 pg (27.0-33.0); Mean Corpuscular Volume 92.5 fL (80-98); Mean Platelet Volume 11.3 fL (9.4-12.3); Monocytes Absolute Auto 1.4 X10*3/uL (0.1-1.2); Monocytes Percent Auto 12.9 % (2-11); Neutrophils Absolute Auto 7.9 X10*3/uL (2.0-8.3); Neutrophils Percent Auto 72.1 % (45-73); Platelet Count 234 X10*3/uL (160-400); Red Blood Count 4.15 X10*6/uL (4.20-5.50); Red Cell Distribution Width 13.7 % (11.0-16.0)
[2021-03-09 20:48] LABS: INTERNATIONAL NORM RATIO 1.9 (0.9-1.1)
[2021-03-09 20:51] LABS: Partial Thromboplastin Time 47.7 SEC (24.1-38.0)
[2021-03-09 20:53] LABS: Anion Gap 15 (12-20); Blood Urea Nitrogen 21 mg/dL (9-16); Calcium 9.4 mg/dL (8.4-10.2); Carbon Dioxide 26 mmol/L (22-29); Chloride 103 mmol/L (96-108); Creatinine Clr Calc Pharmacy 59.8; Estimated Glomerular Filt Rate > 60; Glucose Random 106 mg/dL (60-115); Potassium 4.3 mmol/L (3.3-5.1); Sodium 140 mmol/L (135-145)
[2021-03-09 21:13] LABS: Influenza A PCR NEGATIVE (Negative); Influenza B PCR NEGATIVE (Negative); Resp Syncy Virus RNA Qual PCR NEGATIVE (Negative); SARS COV2 PCR INHOUSE NEGATIVE (Negative)
== END 2021-03-09 22:11 | disposition home or self-care (01) ==
PROVIDERS: Emergency Provider Emergency Medicine; PCP Hospitalist
DX: T18.128A Food in esophagus causing other injury, initial encounter (principal); I11.0 Hypertensive heart disease with heart failure; I50.9 Heart failure, unspecified; I48.20 Chronic atrial fibrillation, unspecified; J44.9 Chronic obstructive pulmonary disease, unspecified; Z95.2 Presence of prosthetic heart valve; Z79.01 Long term (current) use of anticoagulants; Z99.81 Dependence on supplemental oxygen; X58.XXXA Exposure to other specified factors, initial encounter; Y93.9 Activity, unspecified; Y92.9 Unspecified place or not applicable; Y99.9 Unspecified external cause status; Z20.822 Contact with and (suspected) exposure to COVID-19
CPT/HCPCS: 0241U; 36415; 70360; 80048; 85025; 85610; 85730; 96374; 99284; J1610

== ENCOUNTER → 2021-04-03 13:02 | Outpatient (BNVA) | payer MEDICARE, OTHER, SELFPAY | PROVIDERS: PCP Hospitalist; Visit Provider Internal Medicine | DX: I48.0 Paroxysmal atrial fibrillation (principal); Z51.81 Encounter for therapeutic drug level monitoring; Z79.01 Long term (current) use of anticoagulants | CPT/HCPCS: 85610; 99211 ==

== ENCOUNTER → 2021-05-08 13:07 | Outpatient (BNVA) | payer MEDICARE, OTHER, SELFPAY | PROVIDERS: PCP Hospitalist; Visit Provider Internal Medicine | DX: I48.0 Paroxysmal atrial fibrillation (principal); Z51.81 Encounter for therapeutic drug level monitoring; Z79.01 Long term (current) use of anticoagulants | CPT/HCPCS: 85610; 99211 ==

== ENCOUNTER → 2021-06-11 13:03 | Outpatient (BNVA) | payer MEDICARE, OTHER, SELFPAY | PROVIDERS: PCP Hospitalist; Visit Provider Internal Medicine | DX: I48.0 Paroxysmal atrial fibrillation (principal); Z51.81 Encounter for therapeutic drug level monitoring; Z79.01 Long term (current) use of anticoagulants | CPT/HCPCS: 85610; 99211 ==

== ENCOUNTER → 2021-07-09 13:03 | Outpatient (BNVA) | payer MEDICARE, OTHER, SELFPAY | PROVIDERS: PCP Hospitalist; Visit Provider Internal Medicine | DX: I48.0 Paroxysmal atrial fibrillation (principal); Z51.81 Encounter for therapeutic drug level monitoring; Z79.01 Long term (current) use of anticoagulants | CPT/HCPCS: 85610; 99211 ==

== ENCOUNTER → 2021-08-08 13:09 | Outpatient (BNVA) | payer MEDICARE, OTHER, SELFPAY | PROVIDERS: PCP Hospitalist; Visit Provider Internal Medicine | DX: I48.0 Paroxysmal atrial fibrillation (principal); Z51.81 Encounter for therapeutic drug level monitoring; Z79.01 Long term (current) use of anticoagulants | CPT/HCPCS: 85610; 99211 ==

== ENCOUNTER → 2021-09-11 13:05 | Outpatient (BNVA) | payer MEDICARE, OTHER, SELFPAY | PROVIDERS: PCP Hospitalist; Visit Provider Internal Medicine | DX: I48.0 Paroxysmal atrial fibrillation (principal); Z51.81 Encounter for therapeutic drug level monitoring; Z79.01 Long term (current) use of anticoagulants | CPT/HCPCS: 85610; 99211 ==

== ENCOUNTER → 2021-09-20 12:56 | Outpatient (BNVA) | payer MEDICARE, OTHER, SELFPAY | PROVIDERS: PCP Hospitalist; Referring Provider Hospitalist; Visit Provider Internal Medicine Cardiovascular Disease | DX: I50.43 Acute on chronic combined systolic (congestive) and diastolic (congestive) heart failure (principal); I48.20 Chronic atrial fibrillation, unspecified; Z95.2 Presence of prosthetic heart valve; Z79.01 Long term (current) use of anticoagulants; Z79.899 Other long term (current) drug therapy; Z99.81 Dependence on supplemental oxygen; Z45.018 Encounter for adjustment and management of other part of cardiac pacemaker | CPT/HCPCS: 99212 ==

== ENCOUNTER → 2021-09-21 13:19 | Outpatient (BNVA) | payer MEDICARE, OTHER, SELFPAY | PROVIDERS: PCP Hospitalist; Visit Provider Internal Medicine | DX: I48.0 Paroxysmal atrial fibrillation (principal); Z51.81 Encounter for therapeutic drug level monitoring; Z79.01 Long term (current) use of anticoagulants | CPT/HCPCS: 85610; 99211 ==

== ENCOUNTER → 2021-10-23 13:06 | Outpatient (BNVA) | payer MEDICARE, OTHER, SELFPAY | PROVIDERS: PCP Hospitalist; Visit Provider Internal Medicine | DX: I48.0 Paroxysmal atrial fibrillation (principal); Z51.81 Encounter for therapeutic drug level monitoring; Z79.01 Long term (current) use of anticoagulants | CPT/HCPCS: 85610; 99211 ==

== ENCOUNTER → 2021-11-06 13:04 | Outpatient (BNVA) | payer MEDICARE, OTHER, SELFPAY | PROVIDERS: PCP Hospitalist; Visit Provider Internal Medicine | DX: I48.0 Paroxysmal atrial fibrillation (principal); Z51.81 Encounter for therapeutic drug level monitoring; Z79.01 Long term (current) use of anticoagulants | CPT/HCPCS: 85610; 99211 ==

== ENCOUNTER → 2021-11-20 13:43 | Outpatient (BNVA) | payer MEDICARE, OTHER, SELFPAY | PROVIDERS: PCP Nurse Practitioner Family; Visit Provider Internal Medicine | DX: I48.0 Paroxysmal atrial fibrillation (principal); Z79.01 Long term (current) use of anticoagulants; Z51.81 Encounter for therapeutic drug level monitoring | CPT/HCPCS: 85610; 99211 ==

== ENCOUNTER 2021-12-03 06:32 | Emergency (ER) | payer MEDICARE, OTHER, SELFPAY ==
[2021-12-03 06:43] VITALS: BP 156/68; PULSE 88; O2SAT 95
[2021-12-03 06:48] VITALS: BP 135/81; PULSE 89; RESP 20; O2SAT 96; BMI 35.4
--- NOTE | 2021-12-03 06:55 | ED.FEMALEGU ---
HPI - Female Genitourinary General Chief complaint: Urogenital-Female Stated complaint: ABD. PAIN Time Seen by Provider: 12/03/21 06:47 Source: patient and EMS Mode of arrival: EMS Limitations: no limitations History of Present Illness HPI Narrative: Patient comes emergency room complaining of unable to urinate for 3 days. Patient states that she does leak urine, but states that she cannot fully empty her bladder. Patient states that she is prone to urinary tract infections, last time in September of this year. Patient denies fever chills, no nausea vomiting or diarrhea, no abdominal pain, complaining of suprapubic discomfort. Denies hematuria. Related Data Home Medications Medication Instructions Recorded Confirmed warfarin 5 mg tablet 1 tab PO DAILY 05/18/20 11/20/21 zolpidem 5 mg tablet 5 mg PO BEDTIME PRN 10/30/20 10/23/21 solifenacin 5 mg tablet 5 mg PO DAILY 02/13/21 10/23/21 fluticasone furoate 100 1 puff PO DAILY 03/09/21 10/23/21 mcg-vilanterol 25 mcg/dose inhalation powder (Breo Ellipta) zolpidem 10 mg tablet 10 mg PO BEDTIME 04/03/21 10/23/21 diltiazem HCl 120 mg 120 mg PO DAILY 09/20/21 10/23/21 capsule,extended release 24 hr furosemide 40 mg tablet 40 mg PO DAILY 09/20/21 10/23/21 levothyroxine 88 mcg tablet 88 mcg PO DAILY 09/20/21 10/23/21 mirabegron 50 mg tablet,extended 50 mg PO DAILY 09/20/21 10/23/21 release 24 hr (Myrbetriq) omeprazole 20 mg capsule,delayed 20 mg PO DAILY 09/20/21 10/23/21 release potassium chloride 10 mEq 10 meq PO DAILY 09/20/21 10/23/21 tablet,extended release Previous Rx's Medication Instructions Recorded cefuroxime axetil 500 mg tablet 500 mg PO BID #14 tab 12/03/21 Allergies Allergy/AdvReac Type Severity Reaction Status Date / Time pine nut [PINE NUT] Allergy Unknown RASH Verified 11/06/21 13:08 Review of Systems Review of Systems: Constitutional : No Weight loss, No Fever, No Chills, No Night Sweats, No Fatigue, No Malaise ENT/Mouth : No Hearing loss, No Ear Pain, No Nasal Congestion, No Sinus Pain, No Hoarseness, No sore throat, No Rhinorrhea, No Swallowing Difficulty Eyes: No Eye Pain, No Swelling, No Redness, No Foreign Body, No Discharge, No Vision Changes Cardiovascular : No Chest Pain, No SOB, No Dyspnea on Exertion, No Orthopnea, No Edema, No Palpitations Respiratory : No Cough, No Sputum, No Wheezing, No Smoke Exposure, No Dyspnea Gastrointestinal : No Nausea, No Vomiting, No Diarrhea, No Constipation, complaining of suprapubic discomfort, fullness. No Hematochezia, No Melena Genitourinary : no irregular bleeding, denies Dysuria, No Urinary Frequency, No Hematuria, Chronic Urinary Incontinence, No Urgency, No Flank Pain, leaking urine more than usual, unable to fully empty the bladder. No Hesitancy Musculoskeletal : No joint pain, No Myalgias, No Joint Swelling Skin : No Skin Lesions, No rash Neuro : No Weakness, No Numbness, No Paresthesias, No Loss of Consciousness, No Dizziness, No Headache Psych : No Anxiety/Panic, No Depression, No SI/HI/AH/VH, No Social Issues, Heme/Lymph: No Bruising, No Bleeding,No Lymphadenopathy Endocrine : No Polyuria, No Polydipsia, No Temperature Intolerance [facility] [place] Past Medical History Medical History Cardiac pacemaker in situ Chronic atrial fibrillation Chronic respiratory failure with hypoxia Congestive heart failure COPD (chronic obstructive pulmonary disease) Hypertension Surgical History H/O mitral valve replacement History of permanent cardiac pacemaker placement Hx of mitral valve repair Social History Social History Household Members: None Housing: Condominium Do you presently have visiting nurse or other home services: Yes Alcohol intake: never Patient Tobacco Use Status: Former Tobacco user Second Hand Smoke Exposure: No Use of substances other than those prescribed or required for medical reasons: No Advance Directives: No Advance Directives Information Provided: No service: No Current occupational status: employed Physical Exam Vital Signs: Vital Signs: Last Vital Signs Temp 97.8 F 12/03/21 08:06 Pulse 80 12/03/21 08:06 Resp 18 12/03/21 08:06 BP 145/65 H 12/03/21 08:06 Pulse Ox 96 12/03/21 08:06 Oxygen Flow Rate 2 12/03/21 06:48 BMI result Body Mass Index 35.4 Const: Other: Appearance: Alert. Oriented X3. No acute distress. Well-appearing Eyes: Pupils equal, round and reactive to light. ENT: Pharynx normal. Neck: Normal inspection. Neck supple. No lymph nodes noted. No crepitus CVS: Normal heart rate and rhythm. Pulses normal. Normal S1 and S2 Respiratory: No respiratory distress. Breath sounds normal. No Wheezing. No rales Abdomen: Soft, mild suprapubic discomfort, no significant fullness or rigidity, No distention. Skin: Skin warm and dry. Normal skin color. Normal skin turgor. Extremities: No lower extremity edema. No Lacerations. No Rash Neuro: Oriented X 3. No motor deficit. No sensory deficit. Moving all extremities. No slurred speech. CN 2 through 12 grossly intact Psych: calm, cooperative, normal affect Course Course Course Narrative: Patient likely has a urinary tract infection. Patient did not have significant discomfort on physical exam when I pressed in the lower quadrants and suprapubic area. Bladder scan and urinalysis pending Patient was not a bladder scan, the nurse inserted the catheter, 700 mL of urine were obtained. At this time, will go ahead and insert a Nelson catheter. Patient does have a UTI. As mentioned above, it was not suspected. Patient was seeming on dose of ceftriaxone IM, patient will continue treatment with p.o. antibiotic. MDM - Female Genitourinary Lab Data Labs: Lab Results 12/03/21 Range/Units 08:25 Urine Color YELLOW Urine Appearance HAZY Urine pH 6.5 (5.0-8.0) Ur Specific [place] 1.010 (1.005-1.025) Urine Protein NEG (NEG-TRACE) MG/DL Urine Glucose (UA) NEG (NEG) MG/DL Urine Ketones NEG (NEG) MG/DL Urine Blood NEG (NEG) Urine Nitrite POS H (NEG) Ur Leukocyte Esterase 2+ H (NEG) Urine RBC 0 (0) /HPF Urine WBC 15-29 H (0-4) /HPF Ur Squamous Epith Cells 1+ /LPF Urine Bacteria 4+ /LPF Discharge Plan Discharge Clinical Impression: Acute urinary retention, Urinary tract infection Patient Disposition: Home, Self-Care Instructions: Nelson Catheter Placement and Care (ED), Acute Urinary Retention in Women (ED), Urinary Tract Infection in Older Adults (ED) Additional Instructions: Please follow-up with your primary care physician tomorrow. If you have any worsening or new symptoms, please return to the emergency room or call 911 Prescriptions: New cefuroxime axetil 500 mg tablet 500 mg PO BID Qty: 14 0RF No Action warfarin 5 mg tablet 1 tab PO DAILY 0RF Protocol: Dose Management Condition: Friday (Week One) Dose/Route: 2.5 mg Instruction: 0.5 x 5 mg tablets Condition: Friday Dose/Route: 5 mg Instruction: 1 x 5 mg tablet Condition: Friday Dose/Route: 2.5 mg Instruction: 0.5 x 5 mg tablets Condition: Friday Dose/Route: 5 mg Instruction: 1 x 5 mg tablet Condition: Dose/Route: 2.5 mg Instruction: 0.5 x 5 mg tablets Condition: Friday Dose/Route: 5 mg Instruction: 1 x 5 mg tablet Condition: Friday Dose/Route: 2.5 mg Instruction: 0.5 x 5 mg tablets Condition: Friday (Week Two) Dose/Route: 2.5 mg Instruction: 0.5 x 5 mg tablets Condition: Friday Dose/Route: 5 mg Instruction: 1 x 5 mg tablet Condition: Friday Dose/Route: 2.5 mg Instruction: 0.5 x 5 mg tablets Condition: Friday Dose/Route: 5 mg Instruction: 1 x 5 mg tablet Condition: Dose/Route: 2.5 mg Instruction: 0.5 x 5 mg tablets Condition: Friday Dose/Route: 5 mg Instruction: 1 x 5 mg tablet Condition: Friday Dose/Route: 2.5 mg Instruction: 0.5 x 5 mg tablets Protocol Text: Adjustment Start Date: Friday11/20/21 INR Value: 2.1 INR Date: 11/20/21 Recheck Date: 12/18/21 solifenacin 5 mg tablet 5 mg PO DAILY 0RF Breo Ellipta 100-25 mcg/dose blister with device 1 puff PO DAILY 0RF furosemide 40 mg tablet 40 mg PO DAILY 0RF levothyroxine 88 mcg tablet 88 mcg PO DAILY 0RF Myrbetriq 50 mg tablet extended release 24 hr 50 mg PO DAILY 0RF omeprazole 20 mg capsule,delayed release(DR/EC) 20 mg PO DAILY 0RF potassium chloride 10 mEq tablet extended release 10 meq PO DAILY 0RF zolpidem 5 mg tablet 5 mg PO BEDTIME PRN (Reason: insomnia) 0RF zolpidem 10 mg tablet 10 mg PO BEDTIME 0RF diltiazem HCl 120 mg capsule,extended release 24hr 120 mg PO DAILY 0RF Referrals: Yo Otoole MD [Physician] - 2 days (urinary retention)
[2021-12-03 08:06] VITALS: BP 145/65; PULSE 80; RESP 18; TEMP 36.6; O2SAT 96
[2021-12-03 08:35] LABS: Appearance Urine HAZY; Color Urine YELLOW; Glucose Urine UA NEG (NEG); Leukocyte Esterase Urine 2+ (NEG); Nitrite Urine POS (NEG); PH 6.5 (5.0-8.0); UACC Culture Trigger YES; Urine Blood NEG (NEG); Urine Ketones NEG (NEG); Urine Protein NEG (NEG-TRACE)
[2021-12-03 08:42] LABS: Bacteria Urine 4+ /LPF; Squamous Epithelial Cell Urine 1+ /LPF
[2021-12-03 08:43] LABS: RBC Urine 0 /HPF (0)
[2021-12-03] MEDS: cefTRIAXone sodium 1 GM, Lidocaine HCl 1 % MPF 2.1 ML IM (09:48)
== END 2021-12-03 10:08 | disposition home or self-care (01) ==
PROVIDERS: Emergency Provider Emergency Medicine
DX: N39.0 Urinary tract infection, site not specified (principal); R33.9 Retention of urine, unspecified; Z87.891 Personal history of nicotine dependence; Z79.899 Other long term (current) drug therapy
CPT/HCPCS: 51702; 51798; 81001; 87086; 96372; 99284; 99285; J0696

== ENCOUNTER → 2021-12-11 14:38 | Outpatient (BNVA) | payer MEDICARE, OTHER, SELFPAY | PROVIDERS: PCP Nurse Practitioner Family; Visit Provider Urology | DX: Z13.9 Encounter for screening, unspecified (principal); R33.9 Retention of urine, unspecified | CPT/HCPCS: 51701; 51702; 51798 ==

== ENCOUNTER → 2021-12-18 13:20 | Outpatient (BNVA) | payer MEDICARE, OTHER, SELFPAY | PROVIDERS: PCP Nurse Practitioner Family; Visit Provider Internal Medicine | DX: I48.0 Paroxysmal atrial fibrillation (principal); Z79.01 Long term (current) use of anticoagulants; Z51.81 Encounter for therapeutic drug level monitoring | CPT/HCPCS: 85610; 99211 ==

== ENCOUNTER 2021-12-25 14:11 | Outpatient (REF) | payer MEDICARE, OTHER, SELFPAY ==
[2021-12-25 11:56] LABS: INTERNATIONAL NORM RATIO 2.5 (0.9-1.1); Prothrombin Time 28.5 SEC (9.9-13.0)
== END 2021-12-25 14:12 | disposition home or self-care (01) ==
LOC: HO.LHD 14:11
PROVIDERS: Visit Provider Nurse Practitioner Family
DX: I48.0 Paroxysmal atrial fibrillation (principal); Z51.81 Encounter for therapeutic drug level monitoring; Z79.01 Long term (current) use of anticoagulants
CPT/HCPCS: 36415; 85610

== ENCOUNTER 2021-12-30 12:06 | Emergency (ER) | payer MEDICARE, OTHER, SELFPAY ==
[2021-12-30 12:50] VITALS: BP 147/76; PULSE 87; RESP 18; TEMP 36.6; O2SAT 98; BMI 32.6
[2021-12-30 14:22] LABS: MANUAL DIFF FLAG NO
[2021-12-30 14:23] LABS: Basophils Absolute Auto 0.1 X10*3/uL (0.0-0.2); Basophils Percent Auto 0.5 % (0-2); Eosinophils Absolute Auto 0.1 X10*3/uL (0.0-0.4); Eosinophils Percent Auto 1.5 % (0-4); Hematocrit 37.1 % (37.0-47.0); Hemoglobin 12.1 g/dl (12.0-16.0); Imm Gran Abs Auto 0.02 X10*3/uL (0.00-0.03); Imm Gran Pct Auto 0.2 % (0.0-0.4); Lymphocytes Absolute Auto 0.8 X10*3/uL (1.2-4.9); Lymphocytes Percent Auto 8.6 % (20-40); Mean Corpuscular HGB Conc 32.6 g/dl (31.0-35.0); Mean Corpuscular Hemoglobin 30.3 pg (27.0-33.0); Mean Corpuscular Volume 92.8 fL (80.0-98.0); Mean Platelet Volume 11.7 fL (9.4-12.3); Monocytes Absolute Auto 1.1 X10*3/uL (0.1-1.2); Monocytes Percent Auto 10.9 % (2-11); Neutrophils Absolute Auto 7.6 x10*3/uL (2.0-8.3); Neutrophils Percent Auto 78.3 % (45-73); Platelet Count 250 X10*3/uL (160-400); Red Cell Distribution Width 13.6 % (11.0-16.0); White Blood Count 9.7 X10*3/uL (4.8-10.8)
--- NOTE | 2021-12-30 14:41 | ED_ITS ---
HPI - Female Genitourinary General Chief complaint: Urogenital-Female Stated complaint: CATHETER? Time Seen by Provider: 12/30/21 12:56 Source: patient Mode of arrival: ambulatory History of Present Illness HPI Narrative: 86-year-old female with a past medical history of chronic AFib, CHF, COPD, pacemaker, HTN, recurrent UTIs, urinary retention s/p Nelson catheter placement on 12/03/2021 in our emergency department. Presenting to the ED complaining of Nelson catheter leaking x today. Reports supra pubic abdominal discomfort and diarrhea. Denies fever, chills, nausea/vomiting, dysuria, hematuria Pertinent past history: recurrent UTIs Related Data Home Medications Medication Instructions Recorded Confirmed warfarin 5 mg tablet 1 tab PO DAILY 05/18/20 12/25/21 fluticasone furoate 100 1 puff PO DAILY 03/09/21 10/23/21 mcg-vilanterol 25 mcg/dose inhalation powder (Breo Ellipta) diltiazem HCl 120 mg 120 mg PO DAILY 09/20/21 10/23/21 capsule,extended release 24 hr furosemide 40 mg tablet 40 mg PO DAILY 09/20/21 10/23/21 levothyroxine 88 mcg tablet 88 mcg PO DAILY 09/20/21 10/23/21 omeprazole 20 mg capsule,delayed 20 mg PO DAILY 09/20/21 10/23/21 release potassium chloride 10 mEq 10 meq PO DAILY 09/20/21 10/23/21 tablet,extended release zolpidem 10 mg tablet 5 mg PO BEDTIME PRN tab 12/18/21 12/18/21 Previous Rx's Medication Instructions Recorded cefuroxime axetil 500 mg tablet 500 mg PO BID 7 Days #14 tab 12/30/21 Allergies Allergy/AdvReac Type Severity Reaction Status Date / Time pine nut [PINE NUT] Allergy Unknown RASH Verified 12/30/21 12:50 Review of Systems Review of Systems: Constitutional: No Fever, No Chills, No Fatigue, No Malaise ENT/Mouth: No Ear Pain, No Nasal Congestion, No sore throat, No Rhinorrhea, No Swallowing Difficulty Eyes: No Eye Pain, No Swelling, No Redness, No Vision Changes Cardiovascular: No Chest Pain, No SOB, No Palpitations Respiratory: No Cough, No Sputum, No Dyspnea Gastrointestinal: No Nausea, No Vomiting, + Diarrhea, No Constipation, + Abdominal pain Genitourinary: No Dysuria, No Urinary Frequency, No Hematuria, No Urinary Incontinence/retention, No Urgency, No Flank Pain, No Urinary Flow Changes, No Hesitancy Musculoskeletal: No joint pain, No Myalgias, No Joint Swelling Skin: No Skin Lesions, No rash Neuro: No Weakness, No Dizziness, No Headache Yes all other systems are reviewed and are negative [facility] Past Medical History Attestation statement: The following information was validated with the patient. Medical History Cardiac pacemaker in situ Chronic atrial fibrillation Chronic respiratory failure with hypoxia Congestive heart failure COPD (chronic obstructive pulmonary disease) Hypertension Surgical History H/O mitral valve replacement History of permanent cardiac pacemaker placement Hx of mitral valve repair Social History Social History Household Members: None Housing: Condominium Do you presently have visiting nurse or other home services: Yes Alcohol intake: never Patient Tobacco Use Status: Former Tobacco user Second Hand Smoke Exposure: No Use of substances other than those prescribed or required for medical reasons: No Advance Directives: Yes Advance Directives on File: Yes Advance Directives Date on File: 01/05/21 service: No Current occupational status: employed Physical Exam Vital Signs: Vital Signs: Last Vital Signs Temp 97.8 F 12/30/21 17:08 Pulse 78 12/30/21 17:08 Resp 16 12/30/21 17:08 BP 139/55 L 12/30/21 17:08 Pulse Ox 95 12/30/21 17:08 BMI result Body Mass Index 32.6 Const: General: cooperative, healthy appearing and no acute distress Orientation/consciousness: patient oriented x3 Limitations: no limitations HEENT: Head: Yes normal to inspection and Yes atraumatic Ears: hearing grossly normal bilaterally General nose exam: Normal external nose present Face and sinus: Yes normal facial exam Eyes: General: appearance normal, both eyes and all related structures EOM: EOMs intact bilaterally Neck: Neck: Yes normal visual inspection and Yes no meningeal signs Resp: Effort & Inspection: normal respiratory effort and no respiratory distress Auscultation: clear to auscultation bilaterally Cardio: Rate: regular rate Heart sounds: S1 normal heart sound present and S2 normal heart sound present GI: Inspection: Yes normal to inspection Palpation (GI): Soft to palpation, Tenderness to palpation present (GI) suprapubicly; Negative for with no rebound tenderness, no guarding and not rigid : General: Yes no CVA tenderness Back/Spine/Pelvis: Back: no CVA tenderness Skin: Rashes: no rashes Wounds: no wounds Neuro: General: patient oriented x3, tone normal and no meningeal signs Gait exam (Neuro): Normal gait present Extrem: General: Yes normal to inspection Course Course Course Narrative: -400 cc noted on bladder scan. Will remove and replace Nelson catheter -[id number]--no leukocytosis. Renal function WNL > Nelson catheter placed with positive urinary return about 300 cc in the urinary bag. Post catheter placement bladder scan with 3ml No difficulties with placement -UA infected. Patient given dose of IV Rocephin in the ED, to be discharged on Ceftin MDM - Female Genitourinary MDM Narrative Medical decision making narrative: 86-year-old female with a past medical history of chronic AFib, CHF, COPD, pacemaker, HTN, recurrent UTIs, urinary retention s/p Nelson catheter placement on 12/03/2021 in our emergency department. Presenting to the ED complaining of Nelson catheter leaking x today. On exam vital signs stable, NAD, abdomen soft with mild suprapubic tenderness, no rebound or guarding. + catheter leakage noted with foul smelling odor. Concern for UTI and catheter dislodgement/balloon not being inflated properly. Will obtain bladder scan, remove Nelson catheter, and labs to rule out renal dysfunction Plan: Labs, UA, bladder scan, insert new Nelson catheter Medical Records Attestation: I reviewed the patient's medical records. Lab Data Attestation: I reviewed the patient's lab results. Result diagrams: 12/30/21 14:18 12/30/21 14:18 Labs: Lab Results 12/30/21 12/30/21 12/30/21 Range/Units 14:18 14:18 15:44 WBC 9.7 (4.8-10.8) X10*3/uL RBC 4.00 L (4.20-5.50) X10*6/uL Hgb 12.1 (12.0-16.0) g/dl Hct 37.1 (37.0-47.0) % MCV 92.8 (80.0-98.0) fL MCH 30.3 (27.0-33.0) pg MCHC 32.6 (31.0-35.0) g/dl RDW 13.6 (11.0-16.0) % Plt Count 250 (160-400) X10*3/uL MPV 11.7 (9.4-12.3) fL Immature Gran % (Auto) 0.2 (0.0-0.4) % Neut % (Auto) 78.3 H (45-73) % Lymph % (Auto) 8.6 L (20-40) % [place] % (Auto) 10.9 (2-11) % Eos % (Auto) 1.5 (0-4) % Baso % (Auto) 0.5 (0-2) % Lymph # (Auto) 0.8 L (1.2-4.9) X10*3/uL [place] # (Auto) 1.1 (0.1-1.2) X10*3/uL Eos # (Auto) 0.1 (0.0-0.4) X10*3/uL Baso # (Auto) 0.1 (0.0-0.2) X10*3/uL Abs Immat Gran (auto) 0.02 (0.00-0.03) X10*3/uL Absolute Neuts (auto) 7.6 (2.0-8.3) x10*3/uL Absolute Nucleated RBC 0.000 (0.0-0.012) X10*3/uL Nucleated RBC % (auto) 0.0 (0.0-0.2) /100WBC Sodium 140 (135-145) mmol/L Potassium 4.3 (3.3-5.1) mmol/L Chloride 104 (96-108) mmol/L Carbon Dioxide 28 (22-29) mmol/L Anion Gap 12 (12-20) BUN 17 H (9-16) mg/dL Creatinine 0.80 (0.5-1.4) mg/dL Estim Creat Clear Calc 63.9 Estimated GFR > 60 Random Glucose 101 (60-115) mg/dL Calcium 9.9 (8.4-10.2) mg/dL Magnesium 2.3 (1.6-2.6) mg/dL Total Bilirubin 0.7 (0.0-1.0) mg/dL Direct Bilirubin 0.3 (0.0-0.5) mg/dL AST 20 (5-31) U/L ALT 14 (0-31) U/L Alkaline Phosphatase 113 (39-117) U/L Total Protein 6.9 (6.5-8.0) g/dL Albumin 4.0 (3.5-5.0) g/dL Lipase 17 (8-78) U/L Urine Color YELLOW Urine Appearance CLOUDY Urine pH 7.0 (5.0-8.0) Ur Specific [place] 1.015 (1.005-1.025) Urine Protein NEG (NEG-TRACE) MG/DL Urine Glucose (UA) NEG (NEG) MG/DL Urine Ketones NEG (NEG) MG/DL Urine Blood NEG (NEG) Urine Nitrite POS H (NEG) Ur Leukocyte Esterase 3+ H (NEG) Urine RBC 0-2 (0) /HPF Urine WBC 30-49 H (0-4) /HPF Ur Squamous Epith Cells 1+ /LPF Amorphous Sediment TRACE /LPF Urine Bacteria 3+ /LPF Urine Mucus TRACE /LPF Discharge Plan Discharge Clinical Impression: Complication of Nelson catheter, Urinary tract infection Patient Disposition: Home, Self-Care Instructions: Catheter-associated Urinary Tract Infection (ED) Additional Instructions: You have a urinary tract infection. ceftin is antibiotic please take as prescribed. Additionally your catheter was replaced today in the emergency department. Please follow-up with urology as scheduled in a couple weeks. If you develops fever, persistent or worsening abdominal pain, nausea/vomiting, pain when you urinate or blood in the urine please return to the emergency department Prescriptions: New cefuroxime axetil 500 mg tablet 500 mg PO BID 7 Days Qty: 14 0RF No Action warfarin 5 mg tablet 1 tab PO DAILY 0RF Protocol: Dose Management Condition: Friday (Week One) Dose/Route: 2.5 mg Instruction: 0.5 x 5 mg tablets Condition: Friday Dose/Route: 5 mg Instruction: 1 x 5 mg tablet Condition: Friday Dose/Route: 2.5 mg Instruction: 0.5 x 5 mg tablets Condition: Friday Dose/Route: 5 mg Instruction: 1 x 5 mg tablet Condition: Dose/Route: 2.5 mg Instruction: 0.5 x 5 mg tablets Condition: Friday Dose/Route: 5 mg Instruction: 1 x 5 mg tablet Condition: Friday Dose/Route: 2.5 mg Instruction: 0.5 x 5 mg tablets Condition: Friday (Week Two) Dose/Route: 2.5 mg Instruction: 0.5 x 5 mg tablets Condition: Friday Dose/Route: 5 mg Instruction: 1 x 5 mg tablet Condition: Friday Dose/Route: 2.5 mg Instruction: 0.5 x 5 mg tablets Condition: Friday Dose/Route: 5 mg Instruction: 1 x 5 mg tablet Condition: Dose/Route: 2.5 mg Instruction: 0.5 x 5 mg tablets Condition: Friday Dose/Route: 5 mg Instruction: 1 x 5 mg tablet Condition: Friday Dose/Route: 2.5 mg Instruction: 0.5 x 5 mg tablets Protocol Text: Adjustment Start Date: Friday12/25/21 INR Value: 2.5 INR Date: 12/25/21 Recheck Date: 01/01/22 Additional Instructions: cont reg dosing call with any medication changes Breo Ellipta 100-25 mcg/dose blister with device 1 puff PO DAILY 0RF furosemide 40 mg tablet 40 mg PO DAILY 0RF levothyroxine 88 mcg tablet 88 mcg PO DAILY 0RF omeprazole 20 mg capsule,delayed release(DR/EC) 20 mg PO DAILY 0RF potassium chloride 10 mEq tablet extended release 10 meq PO DAILY 0RF diltiazem HCl 120 mg capsule,extended release 24hr 120 mg PO DAILY 0RF zolpidem 10 mg tablet 5 mg PO BEDTIME [id number] Referrals: Yo Otoole MD [Physician] - (as scheduled) Interventions: ED Discharge Assessment Last Done: 12/30/21 18:13 Discharge Date/Time: 12/30/21 18:28
[2021-12-30 14:46] LABS: Alanine Aminotransferase 14 U/L (0-31); Alkaline Phosphatase 113 U/L (39-117); Anion Gap 12 (12-20); Aspartate Amino Transferase 20 U/L (5-31); Bilirubin Direct 0.3 mg/dL (0.0-0.5); Bilirubin Total 0.7 mg/dL (0.0-1.0); Blood Urea Nitrogen 17 mg/dL (9-16); Calcium 9.9 mg/dL (8.4-10.2); Carbon Dioxide 28 mmol/L (22-29); Chloride 104 mmol/L (96-108); Creatinine Clr Calc Pharmacy 63.9; Estimated Glomerular Filt Rate > 60; Glucose Random 101 mg/dL (60-115); Lipase 17 U/L (8-78); Magnesium 2.3 mg/dL (1.6-2.6); Potassium 4.3 mmol/L (3.3-5.1); Sodium 140 mmol/L (135-145); Total Protein 6.9 g/dL (6.5-8.0)
[2021-12-30 16:04] LABS: Appearance Urine CLOUDY; Color Urine YELLOW; Glucose Urine UA NEG (NEG); Leukocyte Esterase Urine 3+ (NEG); Nitrite Urine POS (NEG); Specific Gravity - Urine 1.015 (1.005-1.025); UACC Culture Trigger YES; Urine Blood NEG (NEG); Urine Ketones NEG (NEG); Urine Protein NEG (NEG-TRACE)
[2021-12-30 16:10] LABS: Amorphous Sediment Urine TRACE /LPF; Bacteria Urine 3+ /LPF; Mucus Urine TRACE /LPF; RBC Urine 0-2 /HPF (0); Squamous Epithelial Cell Urine 1+ /LPF; WBC Urine 30-49 /HPF (0-4)
[2021-12-30 17:08] VITALS: BP 139/55; PULSE 78; RESP 16; TEMP 36.6; O2SAT 95
[2021-12-30] MEDS: cefTRIAXone sodium 1 GM in 0.9 % Sodium Chloride 50 ML IV (17:14)
== END 2021-12-30 18:28 | disposition home or self-care (01) ==
PROVIDERS: Physician Assistant; Emergency Provider Emergency Medicine; PCP Nurse Practitioner Family
DX: N39.0 Urinary tract infection, site not specified (principal); R33.9 Retention of urine, unspecified; I48.91 Unspecified atrial fibrillation; T83.9XXA Unspecified complication of genitourinary prosthetic device, implant and graft, initial encounter; Y73.8 Miscellaneous gastroenterology and urology devices associated with adverse incidents, not elsewhere classified; Y92.9 Unspecified place or not applicable; Z79.899 Other long term (current) drug therapy; Z79.01 Long term (current) use of anticoagulants; Z87.891 Personal history of nicotine dependence
CPT/HCPCS: 36415; 51702; 51798; 80048; 80076; 81001; 81003; 83690; 83735; 85025; 87086; 96365; 99284; J0696

== ENCOUNTER 2022-01-03 11:02 | Outpatient (REF) | payer MEDICARE, OTHER, SELFPAY ==
[2022-01-01 13:31] LABS: INTERNATIONAL NORM RATIO 2.9 (0.9-1.1); Prothrombin Time 33.9 SEC (9.9-13.0)
== END 2022-01-03 11:03 | disposition home or self-care (01) ==
LOC: HO.LHD 11:02
PROVIDERS: Visit Provider Nurse Practitioner Family
DX: I48.0 Paroxysmal atrial fibrillation (principal); Z51.81 Encounter for therapeutic drug level monitoring; Z79.01 Long term (current) use of anticoagulants
CPT/HCPCS: 36415; 85610; Q3014

== ENCOUNTER 2022-01-08 11:56 | Outpatient (REF) | payer MEDICARE, OTHER, SELFPAY ==
[2022-01-08 09:27] LABS: Prothrombin Time 23.1 SEC (9.9-13.0)
== END 2022-01-08 11:57 | disposition home or self-care (01) ==
LOC: HO.LHD 11:56
PROVIDERS: Visit Provider Nurse Practitioner Family
DX: I48.0 Paroxysmal atrial fibrillation (principal); Z51.81 Encounter for therapeutic drug level monitoring; Z79.01 Long term (current) use of anticoagulants
CPT/HCPCS: 36415; 85610; Q3014

== ENCOUNTER 2022-01-15 | Outpatient (REF) | payer MEDICARE, OTHER, SELFPAY ==
[2022-01-15 12:01] LABS: INTERNATIONAL NORM RATIO 2.4 (0.9-1.1); Prothrombin Time 27.4 SEC (9.9-13.0)
== END 2022-01-15 00:01 | disposition home or self-care (01) ==
LOC: HO.LHD
PROVIDERS: Visit Provider Nurse Practitioner Family
DX: Z79.01 Long term (current) use of anticoagulants (principal)
CPT/HCPCS: 36415; 85610; Q3014

== ENCOUNTER → 2022-01-22 09:25 | Outpatient (BNVA) | payer MEDICARE, OTHER, SELFPAY | PROVIDERS: PCP Nurse Practitioner Family; Visit Provider Urology | DX: Z46.6 Encounter for fitting and adjustment of urinary device (principal); R33.9 Retention of urine, unspecified | CPT/HCPCS: 51700; 51702; 99202 ==

== ENCOUNTER → 2022-02-11 13:04 | Outpatient (BNVA) | payer MEDICARE, OTHER, SELFPAY | PROVIDERS: PCP Nurse Practitioner Family; Visit Provider Internal Medicine | DX: I48.0 Paroxysmal atrial fibrillation (principal); Z79.01 Long term (current) use of anticoagulants; Z51.81 Encounter for therapeutic drug level monitoring | CPT/HCPCS: 85610; 99211 ==

== ENCOUNTER 2022-02-20 10:18 | Inpatient (IN) | payer MEDICARE, OTHER, SELFPAY ==
[2022-02-20] VITALS (10 sets, daily range): BP systolic 99–131; BP diastolic 42–73; PULSE 74–92; RESP 20–28; TEMP 36.4–36.8; O2SAT 90–98; BMI 33.0
--- NOTE | ~2022-02-20 | XR_ITS ---
EXAMINATION: XR CHEST CLINICAL INFORMATION: Shortness of breath COMPARISON: 01/05/2021 TECHNIQUE: Frontal view of the chest was obtained. FINDINGS: Sternal wires and a valve prosthesis are again noted. 2-lead pacemaker, unchanged. Additional wires and leads overlie the chest. There is worsened chronic interstitial prominence. Blunting of left costophrenic sulcus suggests a left pleural effusion. Cardiac silhouette remains enlarged. Electronic device overlies the left lateral lung base. XR/XR chest 1V IMPRESSION: Worsened chronic interstitial prominence. This could reflect a degree of superimposed pulmonary edema, bronchitis, or interstitial pneumonitis. Likely small left pleural effusion.
--- NOTE | 2022-02-20 10:43 | ECG_ITS ---
Test Reason : dyspnea Blood Pressure : / mmHG Vent. Rate : 070 BPM Atrial Rate : 000 BPM P-R Int : 000 ms QRS Dur : 100 ms QT Int : 418 ms P-R-T Axes : 000 -01 035 degrees QTc Int : 451 ms Atrial fibrillation with frequent ventricular-paced complexes and with premature ventricular or aberrantly conducted complexes Abnormal ECG When compared with ECG of 05-JAN-2021 14:33, No significant changes seen Referred By: Cher Cummings Electronically Signed By:Stefano Galeas
--- NOTE | 2022-02-20 10:52 | ED_ITS ---
HPI - SOB/Dyspnea General Chief Complaint: Dyspnea Stated Complaint: DIFF BREATHING,FEVER,DARK URINE IN F/C Time Seen by Provider: 02/20/22 10:42 Source: patient and old records reviewed Mode of arrival: EMS Limitations: no limitations History of Present Illness HPI Narrative: 87 yo female with hx of CHF, COPD on home O2, MVR, afib on coumadin, urinary retention with marques - states it was placed 2 weeks ago, HTN, PPM, patient has a home health aide she notes that for the past few days her urine has become more cloudy and has an odor. She also feels her home O2 isn't helping and her legs are more swollen. She does not use a neb machine. She is compliant with all medications. Has felt feverish at home but has not checked temperature MD elicited complaint: shortness of breath Pertinent past history: COPD and congestive heart failure Onset (ago): day(s) (3) Timing: progressively worsening Severity: moderate Exacerbating factors: lying flat, exertion and coughing Relieving factors: oxygen, rest and upright position Known history of: COPD and congestive heart failure Associated symptoms: fever, orthopnea and other (lower extremity edema) Related Data Home Medications Medication Instructions Recorded Confirmed warfarin 5 mg tablet 1 tab PO DAILY 05/18/20 02/11/22 fluticasone furoate 100 1 puff PO DAILY 03/09/21 02/20/22 mcg-vilanterol 25 mcg/dose inhalation powder (Breo Ellipta) diltiazem HCl 120 mg 120 mg PO DAILY 09/20/21 02/20/22 capsule,extended release 24 hr furosemide 40 mg tablet 40 mg PO DAILY 09/20/21 02/20/22 levothyroxine 88 mcg tablet 88 mcg PO DAILY 09/20/21 02/20/22 omeprazole 20 mg capsule,delayed 20 mg PO DAILY 09/20/21 02/20/22 release potassium chloride 10 mEq 10 meq PO DAILY 09/20/21 02/20/22 tablet,extended release zolpidem 10 mg tablet 5 mg PO BEDTIME PRN Insomnia 12/18/21 02/20/22 doxepin 10 mg capsule 10 mg PO BEDTIME PRN Itching 01/22/22 02/20/22 ammonium lactate 12 % topical cream 1 appl topical BID 02/11/22 02/20/22 warfarin 5 mg tablet 2.5 mg PO SUTUTHSA@1800 02/20/22 02/20/22 warfarin 5 mg tablet 5 mg PO MOWEFR@1800 02/20/22 02/20/22 Previous Rx's Medication Instructions Recorded terazosin 1 mg capsule 1 mg PO BEDTIME 30 days #30 caps 01/22/22 Allergies Allergy/AdvReac Type Severity Reaction Status Date / Time pine nut [PINE NUT] Allergy Unknown RASH Verified 02/11/22 13:09 Review of Systems Review of Systems: Constitutional : No Fever, No Chills ENT/Mouth : No sore throat, No Rhinorrhea, No Swallowing Difficulty Eyes: No Eye Pain, No Swelling, No Redness Cardiovascular : No Chest Pain, positive SOB, No Orthopnea, positive Edema Respiratory : No Cough, No Sputum, No Wheezing, positive dyspnea Gastrointestinal : No Nausea, No Vomiting, No Diarrhea, No abdominal Pain, No Hematochezia, No Melena Genitourinary : No Dysuria, No Urinary Frequency, No Hematuria, pos di scoloration, pos odor to urine Musculoskeletal : No joint pain, No Myalgias Skin : No Skin Lesions, No rash Neuro : No Weakness, No Numbness, No Dizziness, No Headache Psych : No Anxiety/Panic, No Depression Heme/Lymph: No Bruising, No Lymphadenopathy Endocrine : No Polyuria, No Polydipsia All other systems reviewed and are negative [facility] Past Medical History Attestation statement: The following information was validated with the patient. Source: old records reviewed Medical History Cardiac pacemaker in situ Chronic atrial fibrillation Chronic respiratory failure with hypoxia Congestive heart failure COPD (chronic obstructive pulmonary disease) Hypertension Surgical History H/O mitral valve replacement History of permanent cardiac pacemaker placement Hx of mitral valve repair Social History Social History Household Members: None Housing: Condominium Do you presently have visiting nurse or other home services: Yes Alcohol intake: never Patient Tobacco Use Status: Former Tobacco user Second Hand Smoke Exposure: No Advance Directives: No Advance Directives Information Provided: Yes Advance Directives Date on File: 01/05/21 service: No Current occupational status: employed Physical Exam Vital Signs: Vital Signs: Last Vital Signs Temp 98.0 F 02/20/22 15:12 Pulse 87 02/20/22 15:19 Resp 20 02/20/22 15:19 BP 108/42 L 02/20/22 15:12 Pulse Ox 90 L 02/20/22 15:12 O2 Del Method 02/20/22 15:12 O2 Flow Rate 4 02/20/22 15:12 Oxygen Flow Rate 3 02/20/22 10:34 BMI result Body Mass Index 33.0 Appearance: Alert. Oriented X3. Mild acute distress. Eyes: Pupils equal, round and reactive to light. ENT: Pharynx normal. Neck: Normal inspection. Neck supple. CVS: irregular heart rate and rhythm. Pulses normal. Respiratory: labored breathing while laying flat tachypneic mild respiratory distress. Breath sounds very diminished, rales at base Abdomen: Soft and nontender. Skin: Skin warm and dry. pale skin color. Normal skin turgor. Extremities: pitting 2+ lower extremity edema. No calf ttp R heel shallow old ulcer dark base no purulence no odor no surrounding erythema Neuro: Oriented X 3. No motor deficit. No sensory deficit. Course Course Course Narrative: plan to admit for diuresis MDM - SOB/Dyspnea MDM Narrative Medical decision making narrative: 87 yo female with hx of CHF, COPD on home O2, MVR, afib on coumadin, urinary retention with marques here with c/o dyspnea and LE edema. Patietn also c/o foul urine and discoloration of urine. At this time will obtain labs, EKG, troponin, BNP, albuterol neb, IV lasix. Send off UA - prior Klebsiella and E coli cultures S to ceftriaxone will empirically start at this time. Lab Data Result diagrams: 02/20/22 11:36 02/20/22 11:40 Labs: Lab Results 02/20/22 02/20/22 02/20/22 Range/Units 11:09 11:09 11:36 WBC 9.8 (4.8-10.8) X10*3/uL RBC 3.56 L (4.20-5.50) X10*6/uL Hgb 10.6 L (12.0-16.0) g/dl Hct 33.0 L (37.0-47.0) % MCV 92.7 (80.0-98.0) fL MCH 29.8 (27.0-33.0) pg MCHC 32.1 (31.0-35.0) g/dl RDW 14.3 (11.0-16.0) % Plt Count 205 (160-400) X10*3/uL MPV 12.3 (9.4-12.3) fL Immature Gran % (Auto) 0.4 (0.0-0.4) % Neut % (Auto) 76.5 H (45-73) % Lymph % (Auto) 9.0 L (20-40) % [place] % (Auto) 11.6 H (2-11) % Eos % (Auto) 1.9 (0-4) % Baso % (Auto) 0.6 (0-2) % Lymph # (Auto) 0.9 L (1.2-4.9) X10*3/uL [place] # (Auto) 1.1 (0.1-1.2) X10*3/uL Eos # (Auto) 0.2 (0.0-0.4) X10*3/uL Baso # (Auto) 0.1 (0.0-0.2) X10*3/uL Abs Immat Gran (auto) 0.04 H (0.00-0.03) X10*3/uL Absolute Neuts (auto) 7.5 (2.0-8.3) x10*3/uL Absolute Nucleated RBC 0.000 (0.0-0.012) X10*3/uL Nucleated RBC % (auto) 0.0 (0.0-0.2) /100WBC PT (10.0-13.1) SEC INR (0.9-1.1) VBG pH (7.32-7.43) VBG pCO2 mmHg VBG pO2 mmHg VBG HCO3 (22-26) mmol/L VBG O2 Saturation % VBG Base Excess mmol/L Sodium (135-145) mmol/L Potassium (3.3-5.1) mmol/L Chloride (96-108) mmol/L Carbon Dioxide (22-29) mmol/L Anion Gap (12-20) BUN (9-16) mg/dL Creatinine (0.5-1.4) mg/dL Estim Creat Clear Calc Estimated GFR Random Glucose (60-115) mg/dL Lactic Acid (0.5-2.0) mmol/L Calcium (8.4-10.2) mg/dL Magnesium (1.6-2.6) mg/dL Total Bilirubin (0.0-1.0) mg/dL Direct Bilirubin (0.0-0.5) mg/dL AST (5-31) U/L ALT (0-31) U/L Alkaline Phosphatase (39-117) U/L Troponin I High Sens (<3.5-17.0) ng/L B-Natriuretic Peptide (<100) pg/mL Total Protein (6.5-8.0) g/dL Albumin (3.5-5.0) g/dL Lipase (8-78) U/L Urine Color BROWN A Urine Appearance CLOUDY Urine pH 8.5 H (5.0-8.0) Ur Specific [place] 1.010 (1.005-1.025) Urine Protein 2+ H (NEG-TRACE) MG/DL Urine Glucose (UA) NEG (NEG) MG/DL Urine Ketones NEG (NEG) MG/DL Urine Blood 3+ H (NEG) Urine Nitrite NEG (NEG) Ur Leukocyte Esterase 3+ H (NEG) Urine RBC 15-29 H (0) /HPF Urine WBC 0-2 (0-4) /HPF Ur Squamous Epith Cells NONE /LPF Triple Phos Crystals 3+ /LPF Amorphous Sediment 4+ /LPF Urine Bacteria 4+ /LPF COVID-19 (HERBER) Negative (Negative) COVID-19 Clin Com See Note 02/20/22 02/20/22 02/20/22 Range/Units 11:36 11:36 11:36 WBC (4.8-10.8) X10*3/uL RBC (4.20-5.50) X10*6/uL Hgb (12.0-16.0) g/dl Hct (37.0-47.0) % MCV (80.0-98.0) fL MCH (27.0-33.0) pg MCHC (31.0-35.0) g/dl RDW (11.0-16.0) % Plt Count (160-400) X10*3/uL MPV (9.4-12.3) fL Immature Gran % (Auto) (0.0-0.4) % Neut % (Auto) (45-73) % Lymph % (Auto) (20-40) % [place] % (Auto) (2-11) % Eos % (Auto) (0-4) % Baso % (Auto) (0-2) % Lymph # (Auto) (1.2-4.9) X10*3/uL [place] # (Auto) (0.1-1.2) X10*3/uL Eos # (Auto) (0.0-0.4) X10*3/uL Baso # (Auto) (0.0-0.2) X10*3/uL Abs Immat Gran (auto) (0.00-0.03) X10*3/uL Absolute Neuts (auto) (2.0-8.3) x10*3/uL Absolute Nucleated RBC (0.0-0.012) X10*3/uL Nucleated RBC % (auto) (0.0-0.2) /100WBC PT 32.1 H (10.0-13.1) SEC INR 2.7 H (0.9-1.1) VBG pH (7.32-7.43) VBG pCO2 mmHg VBG pO2 mmHg VBG HCO3 (22-26) mmol/L VBG O2 Saturation % VBG Base Excess mmol/L Sodium (135-145) mmol/L Potassium (3.3-5.1) mmol/L Chloride (96-108) mmol/L Carbon Dioxide (22-29) mmol/L Anion Gap (12-20) BUN (9-16) mg/dL Creatinine (0.5-1.4) mg/dL Estim Creat Clear Calc Estimated GFR Random Glucose (60-115) mg/dL Lactic Acid 0.9 (0.5-2.0) mmol/L Calcium (8.4-10.2) mg/dL Magnesium (1.6-2.6) mg/dL Total Bilirubin (0.0-1.0) mg/dL Direct Bilirubin (0.0-0.5) mg/dL AST (5-31) U/L ALT (0-31) U/L Alkaline Phosphatase (39-117) U/L Troponin I High Sens 12.0 (<3.5-17.0) ng/L B-Natriuretic Peptide 155 H (<100) pg/mL Total Protein (6.5-8.0) g/dL Albumin (3.5-5.0) g/dL Lipase (8-78) U/L Urine Color Urine Appearance Urine pH (5.0-8.0) Ur Specific [place] (1.005-1.025) Urine Protein (NEG-TRACE) MG/DL Urine Glucose (UA) (NEG) MG/DL Urine Ketones (NEG) MG/DL Urine Blood (NEG) Urine Nitrite (NEG) Ur Leukocyte Esterase (NEG) Urine RBC (0) /HPF Urine WBC (0-4) /HPF Ur Squamous Epith Cells /LPF Triple Phos Crystals /LPF Amorphous Sediment /LPF Urine Bacteria /LPF COVID-19 (HERBER) (Negative) COVID-19 Clin Com 02/20/22 02/20/22 Range/Units 11:40 11:44 WBC (4.8-10.8) X10*3/uL RBC (4.20-5.50) X10*6/uL Hgb (12.0-16.0) g/dl Hct (37.0-47.0) % MCV (80.0-98.0) fL MCH (27.0-33.0) pg MCHC (31.0-35.0) g/dl RDW (11.0-16.0) % Plt Count (160-400) X10*3/uL MPV (9.4-12.3) fL Immature Gran % (Auto) (0.0-0.4) % Neut % (Auto) (45-73) % Lymph % (Auto) (20-40) % [place] % (Auto) (2-11) % Eos % (Auto) (0-4) % Baso % (Auto) (0-2) % Lymph # (Auto) (1.2-4.9) X10*3/uL [place] # (Auto) (0.1-1.2) X10*3/uL Eos # (Auto) (0.0-0.4) X10*3/uL Baso # (Auto) (0.0-0.2) X10*3/uL Abs Immat Gran (auto) (0.00-0.03) X10*3/uL Absolute Neuts (auto) (2.0-8.3) x10*3/uL Absolute Nucleated RBC (0.0-0.012) X10*3/uL Nucleated RBC % (auto) (0.0-0.2) /100WBC PT (10.0-13.1) SEC INR (0.9-1.1) VBG pH 7.47 H (7.32-7.43) VBG pCO2 37 mmHg VBG pO2 209 mmHg VBG HCO3 27 H (22-26) mmol/L VBG O2 Saturation 99.0 % VBG Base Excess 4.3 mmol/L Sodium 141 (135-145) mmol/L Potassium 4.1 (3.3-5.1) mmol/L Chloride 106 (96-108) mmol/L Carbon Dioxide 27 (22-29) mmol/L Anion Gap 12 (12-20) BUN 25 H (9-16) mg/dL Creatinine 0.95 (0.5-1.4) mg/dL Estim Creat Clear Calc 56.6 Estimated GFR 56 Random Glucose 106 (60-115) mg/dL Lactic Acid (0.5-2.0) mmol/L Calcium 9.2 D (8.4-10.2) mg/dL Magnesium 2.3 (1.6-2.6) mg/dL Total Bilirubin 0.9 (0.0-1.0) mg/dL Direct Bilirubin 0.4 (0.0-0.5) mg/dL AST 19 (5-31) U/L ALT 13 (0-31) U/L Alkaline Phosphatase 88 D (39-117) U/L Troponin I High Sens (<3.5-17.0) ng/L B-Natriuretic Peptide (<100) pg/mL Total Protein 6.3 L (6.5-8.0) g/dL Albumin 3.9 (3.5-5.0) g/dL Lipase 16 (8-78) U/L Urine Color Urine Appearance Urine pH (5.0-8.0) Ur Specific [place] (1.005-1.025) Urine Protein (NEG-TRACE) MG/DL Urine Glucose (UA) (NEG) MG/DL Urine Ketones (NEG) MG/DL Urine Blood (NEG) Urine Nitrite (NEG) Ur Leukocyte Esterase (NEG) Urine RBC (0) /HPF Urine WBC (0-4) /HPF Ur Squamous Epith Cells /LPF Triple Phos Crystals /LPF Amorphous Sediment /LPF Urine Bacteria /LPF COVID-19 (HERBER) (Negative) COVID-19 Clin Com ECG Data Attestation: I personally reviewed and interpreted this ECG as follows: ECG interpretation date: 02/20/22 ECG interpretation time: 11:31 Interpretation: Rate: 70 Rhythm: afib with PVCs [place]: normal Normal QRS complex. ST T wave : nonspecific no CRISTINA qTC: normal prior studies: no acute ischemia The study has been interpreted contemporaneously by me. . Discharge Plan Discharge Clinical Impression: Acute dyspnea, Cystitis CHF (congestive heart failure) Qualifiers: Heart failure type: unspecified Heart failure chronicity: acute on chronic Qualified Code(s): I50.9 - Heart failure, unspecified Patient Disposition: Admitted As Inpatient
[2022-02-20] MEDS: Albuterol Sulfate (0.083%) 2.5 MG/3 ML VIAL.NEB INHALE ×3 (10:56→19:53)
[2022-02-20 11:24] LABS: Appearance Urine CLOUDY; Color Urine BROWN; Glucose Urine UA NEG (NEG); Leukocyte Esterase Urine 3+ (NEG); Nitrite Urine NEG (NEG); PH 8.5 (5.0-8.0); UACC Culture Trigger YES; Urine Blood 3+ (NEG); Urine Ketones NEG (NEG)
[2022-02-20 11:26] LABS: Urine Protein 2+ MG/DL (NEG-TRACE)
[2022-02-20 11:34] LABS: Amorphous Sediment Urine 4+ /LPF; Triple Phosphate Crystal Urine 3+ /LPF
[2022-02-20 11:35] LABS: Bacteria Urine 4+ /LPF
[2022-02-20 11:37] LABS: WBC Urine 0-2 /HPF (0-4)
[2022-02-20 11:39] LABS: COVID-19 Test Negative (Negative); IDNOW Serial# 9DB6401D
[2022-02-20 11:46] LABS: MANUAL DIFF FLAG NO
[2022-02-20 11:48] LABS: Basophils Absolute Auto 0.1 X10*3/uL (0.0-0.2); Basophils Percent Auto 0.6 % (0-2); Eosinophils Absolute Auto 0.2 X10*3/uL (0.0-0.4); Eosinophils Percent Auto 1.9 % (0-4); Hemoglobin 10.6 g/dl (12.0-16.0); Imm Gran Abs Auto 0.04 X10*3/uL (0.00-0.03); Imm Gran Pct Auto 0.4 % (0.0-0.4); Lymphocytes Absolute Auto 0.9 X10*3/uL (1.2-4.9); Mean Corpuscular HGB Conc 32.1 g/dl (31.0-35.0); Mean Corpuscular Hemoglobin 29.8 pg (27.0-33.0); Mean Corpuscular Volume 92.7 fL (80.0-98.0); Mean Platelet Volume 12.3 fL (9.4-12.3); Monocytes Absolute Auto 1.1 X10*3/uL (0.1-1.2); Monocytes Percent Auto 11.6 % (2-11); Neutrophils Absolute Auto 7.5 x10*3/uL (2.0-8.3); Neutrophils Percent Auto 76.5 % (45-73); Platelet Count 205 X10*3/uL (160-400); Red Blood Count 3.56 X10*6/uL (4.20-5.50); Red Cell Distribution Width 14.3 % (11.0-16.0); White Blood Count 9.8 X10*3/uL (4.8-10.8)
[2022-02-20 11:58] LABS: Venous Blood Gas Refer to POC result
[2022-02-20 11:58] LABS: INTERNATIONAL NORM RATIO 2.7 (0.9-1.1); Prothrombin Time 32.1 SEC (10.0-13.1)
[2022-02-20 12:00] LABS: VBG Base Excess 4.3 mmol/L; VBG HCO3 27 mmol/L (22-26); VBG pCO2 37 mmHg; VBG pH 7.47 (7.32-7.43); VBG pO2 209 mmHg
[2022-02-20 12:00] LABS: Lactic Acid 0.9 mmol/L (0.5-2.0)
[2022-02-20 12:07] LABS: Alanine Aminotransferase 13 U/L (0-31); Albumin Level 3.9 g/dL (3.5-5.0); Alkaline Phosphatase 88 U/L (39-117); Anion Gap 12 (12-20); Aspartate Amino Transferase 19 U/L (5-31); Bilirubin Direct 0.4 mg/dL (0.0-0.5); Bilirubin Total 0.9 mg/dL (0.0-1.0); Blood Urea Nitrogen 25 mg/dL (9-16); Calcium 9.2 mg/dL (8.4-10.2); Carbon Dioxide 27 mmol/L (22-29); Chloride 106 mmol/L (96-108); Creatinine Clr Calc Pharmacy 56.6; Estimated Glomerular Filt Rate 56; Glucose Random 106 mg/dL (60-115); Lipase 16 U/L (8-78); Magnesium 2.3 mg/dL (1.6-2.6); Potassium 4.1 mmol/L (3.3-5.1); Sodium 141 mmol/L (135-145); Total Protein 6.3 g/dL (6.5-8.0)
[2022-02-20 12:10] LABS: B Type Natriuretic Peptide 155 pg/mL (<100)
[2022-02-20] MEDS: Furosemide 20 MG/2 ML VIAL IVPUSH (13:36)
[2022-02-20] MEDS: cefTRIAXone sodium 1 GM in 0.9 % Sodium Chloride 50 ML IV (13:36)
--- NOTE | 2022-02-20 13:57 | PHA.MEDREC ---
Pharmacy Consult ? Medication Reconciliation Pharmacy has completed the medication reconciliation.
--- NOTE | 2022-02-20 14:19 | PC.NURSE ---
Pt A&Ox4, lungs diminished in the bases with coarse crackles. SOB worsening over the past 3 days. States she also has notice dark urine recently in her marques. Pt is chronic Afib on the monitor, 3L NC at baseline with sat in low 90's. Medicated as per MAR orders, call maher within reach. Will continue to monitor.
--- NOTE | 2022-02-20 14:20 | PM.IMHP ---
History of Present Illness Date of Service: 02/20/22 Chief Complaint: Shortness of breath 85-year-old female with past medical history of COPD on home oxygen,? AFib on couamdin, diastolic heart failure on chronic diuretics, chronic marques for urinary retention, she is accompanied by her niece and presents to the hospital with complaint of increasing shortness of breath since last week and had diuretics dose recently adjusted. She woke up today with much difficulty breathing, also has noted her urine to be much cloudy with order, marques cather was inserted about 2 weeks d/t urinary retention and was supposed to see Dr Otoole. CXR show pulmonary edema, BNP is only 155 but chronically low. She's given IV Lasix 20 mg, IV ceftriaxone for UTI and is being admitted Review of Systems Review of Systems: Gen: no fever Resp: + sob, no cough CV: no chest, + BRAUN, + leg edema GI: No n/v, no abd pain Neuro: No confusion Yes all other systems are reviewed and are negative [facility] Medical History Cardiac pacemaker in situ Chronic atrial fibrillation Chronic respiratory failure with hypoxia Congestive heart failure COPD (chronic obstructive pulmonary disease) Hypertension Pertinent family history: HTN, Emphasyma Surgical History H/O mitral valve replacement History of permanent cardiac pacemaker placement Hx of mitral valve repair Social History Household Members: None Housing: Condominium Do you presently have visiting nurse or other home services: Yes Alcohol intake: never Patient Tobacco Use Status: Former Tobacco user Second Hand Smoke Exposure: No Advance Directives: No Advance Directives Information Provided: Yes Advance Directives Date on File: 01/05/21 service: No Current occupational status: employed Meds Allergies Allergy/AdvReac Type Severity Reaction Status Date / Time pine nut [PINE NUT] Allergy Unknown RASH Verified 02/11/22 13:09 Active Medications: Current Medications Pharmacy Consult (Consult Rx Perform Med Rec) 1 each MISCELLANE ONCE PRN PRN Reason: Consult order Home Medications Medication Instructions Recorded Confirmed Last Taken Type fluticasone furoate 100 1 puff PO DAILY 03/09/21 02/20/22 02/20/22 History mcg-vilanterol 25 mcg/dose inhalation powder (Breo Ellipta) diltiazem HCl 120 mg 120 mg PO DAILY 09/20/21 02/20/22 02/20/22 History capsule,extended release 24 hr furosemide 40 mg tablet 40 mg PO DAILY 09/20/21 02/20/22 02/20/22 History levothyroxine 88 mcg tablet 88 mcg PO DAILY 09/20/21 02/20/22 02/20/22 History omeprazole 20 mg capsule,delayed 20 mg PO DAILY 09/20/21 02/20/22 02/20/22 History release potassium chloride 10 mEq 10 meq PO DAILY 09/20/21 02/20/22 02/20/22 History tablet,extended release zolpidem 10 mg tablet 5 mg PO BEDTIME PRN Insomnia 12/18/21 02/20/22 Unknown History doxepin 10 mg capsule 10 mg PO BEDTIME PRN Itching 01/22/22 02/20/22 02/19/22 History ammonium lactate 12 % topical cream 1 appl topical BID 02/11/22 02/20/22 Unknown History warfarin 5 mg tablet 2.5 mg PO SUTUTHSA@1800 02/20/22 02/20/22 02/19/22 History warfarin 5 mg tablet 5 mg PO MOWEFR@1800 02/20/22 02/20/22 02/18/22 History Physical Exam Vital Signs and Narrative: Vital Signs: Last Vital Signs Temp 97.6 F 02/20/22 10:34 Pulse 92 02/20/22 13:42 Resp 28 H 02/20/22 13:42 BP 101/43 L 02/20/22 13:42 Pulse Ox 90 L 02/20/22 13:42 O2 Del Method 02/20/22 13:42 O2 Flow Rate 3 02/20/22 13:42 Oxygen Flow Rate 3 02/20/22 10:34 BMI result Body Mass Index 33.0 Const: Other: Constitutional: Alert, in no distress, Mental Status: Oriented to person, place and time. Eyes: Pupils are equal, round and reactive to light. Ear, Nose and Throat: Oropharynx clear, mucous membranes moist. Ears and nose without eformities. Trachea midline. Respiratory: moderate rales at both lung bases Cardiovascular: S1 S2 regular. No murmurs, rubs or gallops. 2+ pedal edema Gastrointestinal: Abdomen soft, non-tender, non-distended. Normal bowel sounds.? Neurologic: Cranial nerves II-XII grossly intact. No focal neurological deficits. Moves all extremities spontaneously.?A and O x3 Skin: No rashes or lesions.? Musculoskeletal: No cyanosis or clubbing. Psychiatric: Normal mood and affect? Results Labs CBC and Chem 7: 02/20/22 11:36 02/21/22 03:26 Labs: Laboratory Results - last 24 hr 02/20/22 02/20/22 02/20/22 11:09 11:09 11:36 MCV 92.7 MCH 29.8 MCHC 32.1 RDW 14.3 Plt Count 205 MPV 12.3 Immature Gran % (Auto) 0.4 Neut % (Auto) 76.5 H Lymph % (Auto) 9.0 L [place] % (Auto) 11.6 H Eos % (Auto) 1.9 Baso % (Auto) 0.6 Lymph # (Auto) 0.9 L [place] # (Auto) 1.1 Eos # (Auto) 0.2 Baso # (Auto) 0.1 Abs Immat Gran (auto) 0.04 H Absolute Neuts (auto) 7.5 Absolute Nucleated RBC 0.000 Nucleated RBC % (auto) 0.0 PT INR VBG pH VBG pCO2 VBG pO2 VBG HCO3 VBG O2 Saturation VBG Base Excess Anion Gap Estim Creat Clear Calc Estimated GFR Random Glucose Lactic Acid Calcium Magnesium Total Bilirubin Direct Bilirubin AST ALT Alkaline Phosphatase Troponin I High Sens B-Natriuretic Peptide Total Protein Albumin Lipase Urine Color BROWN A Urine Appearance CLOUDY Urine pH 8.5 H Ur Specific [place] 1.010 Urine Protein 2+ H Urine Glucose (UA) NEG Urine Ketones NEG Urine Blood 3+ H Urine Nitrite NEG Ur Leukocyte Esterase 3+ H Urine RBC 15-29 H Urine WBC 0-2 Ur Squamous Epith Cells NONE Triple Phos Crystals 3+ Amorphous Sediment 4+ Urine Bacteria 4+ COVID-19 (HERBER) Negative COVID-19 Clin Com See Note 02/20/22 02/20/22 02/20/22 11:36 11:36 11:36 MCV MCH MCHC RDW Plt Count MPV Immature Gran % (Auto) Neut % (Auto) Lymph % (Auto) [place] % (Auto) Eos % (Auto) Baso % (Auto) Lymph # (Auto) [place] # (Auto) Eos # (Auto) Baso # (Auto) Abs Immat Gran (auto) Absolute Neuts (auto) Absolute Nucleated RBC Nucleated RBC % (auto) PT 32.1 H INR 2.7 H VBG pH VBG pCO2 VBG pO2 VBG HCO3 VBG O2 Saturation VBG Base Excess Anion Gap Estim Creat Clear Calc Estimated GFR Random Glucose Lactic Acid 0.9 Calcium Magnesium Total Bilirubin Direct Bilirubin AST ALT Alkaline Phosphatase Troponin I High Sens 12.0 B-Natriuretic Peptide 155 H Total Protein Albumin Lipase Urine Color Urine Appearance Urine pH Ur Specific [place] Urine Protein Urine Glucose (UA) Urine Ketones Urine Blood Urine Nitrite Ur Leukocyte Esterase Urine RBC Urine WBC Ur Squamous Epith Cells Triple Phos Crystals Amorphous Sediment Urine Bacteria COVID-19 (HERBER) OrthoconeIDUnmetric 02/20/22 02/20/22 11:40 11:44 MCV MCH MCHC RDW Plt Count MPV Immature Gran % (Auto) Neut % (Auto) Lymph % (Auto) [place] % (Auto) Eos % (Auto) Baso % (Auto) Lymph # (Auto) [place] # (Auto) Eos # (Auto) Baso # (Auto) Abs Immat Gran (auto) Absolute Neuts (auto) Absolute Nucleated RBC Nucleated RBC % (auto) PT INR VBG pH 7.47 H VBG pCO2 37 VBG pO2 209 VBG HCO3 27 H VBG O2 Saturation 99.0 VBG Base Excess 4.3 Anion Gap 12 Estim Creat Clear Calc 56.6 Estimated GFR 56 Random Glucose 106 Lactic Acid Calcium 9.2 D Magnesium 2.3 Total Bilirubin 0.9 Direct Bilirubin 0.4 AST 19 ALT 13 Alkaline Phosphatase 88 D Troponin I High Sens B-Natriuretic Peptide Total Protein 6.3 L Albumin 3.9 Lipase 16 Urine Color Urine Appearance Urine pH Ur Specific [place] Urine Protein Urine Glucose (UA) Urine Ketones Urine Blood Urine Nitrite Ur Leukocyte Esterase Urine RBC Urine WBC Ur Squamous Epith Cells Triple Phos Crystals Amorphous Sediment Urine Bacteria COVID-19 (HERBER) COVID-19 [employer] [facility] Radiologist's Impressions: Impressions Chest X-Ray 02/20/22 11:55 IMPRESSION: Worsened chronic interstitial prominence. This could reflect a degree of superimposed pulmonary edema, bronchitis, or interstitial pneumonitis. Likely small left pleural effusion. Assessment and Plan (1) CHF (congestive heart failure): Qualifiers: Heart failure chronicity: acute on chronic Heart failure type: unspecified Qualified Code(s): I50.9 - Heart failure, unspecified Status: Acute Plan 87-year-old female with past medical history of COPD, AFIB, chronic diastolic CHF, HTN, CHF here with decompensated acute on chronic diastolic heart failure with acute hypoxic respiatory failure and likely mild to moderate exacerbation of copd # Hypoxic respiratory failure-- d/t acute on chronic diastolic heart failure and copd -Treat underlying ChF with diuretics -Treat underlying copd with bronchodilators and steroid #? acute on chronic diastolic CHF exacerbation -IV diuretics -monitor I/O, weight, BMP # COPD-- exacerbation -bronchodilators by Neb -steroid #? Atrial fibrillation--rate controlled -? continue diltiazem, and Coumadin - daily INR #? hypertension -? continue diltiazem #? hypothyroidism -? continue levothyroxine #UTI--Ceftriaxone, follow culture DVT prophylaxis: coumadin Admission to span at least 2 midnight for management of decompensated heart failure with hypoxia and need IV diuretics DNR/DNI Quality Stroke Does the patient have a stroke diagnosis?: No VTE Prior VTE?: No VTE Risk Level:: Medical - low VTE Device Contraindication: Treatment Not Indicated VTE Drug Contraindication: N/A - Med Ordered
[2022-02-20] MEDS: predniSONE 20 MG TABLET PO (16:37)
[2022-02-20] MEDS: Melatonin 3 MG TABLET 6 MG PO (21:56)
[2022-02-20] MEDS: Zolpidem Tartrate 5 MG TABLET PO (21:56)
[2022-02-21] VITALS (10 sets, daily range): BP systolic 102–149; BP diastolic 41–67; PULSE 65–100; RESP 16–22; TEMP 36.3–37; O2SAT 92–100; BMI 33.0
--- NOTE | 2022-02-21 04:14 | PC.NURSE ---
I assumed nursing care of Itzel at 1900. Since that time she has been resting in bed comfortably. She is alert, oriented x 3 but states she finds herself feeling intermittently confused while here in the ED. She makes eye contact with RN and is able to verbalize her needs adequately. She is soft spoken but verbally appropriate. Respirations are non-labored, sats on 3L nasal cannula are 93% or better, RR 16 non-labored, she speaks in full sentences. Afib noted on bedside monitor, adequately rate controlled (see VS). Pt is aware that she is TBADM and verbalizes an understanding of this. She has been taking PO fluids without difficulty. Nelson continue to drain urine. We will continue to monitor Itzel.
[2022-02-21 04:34] LABS: Anion Gap 11 (12-20); Blood Urea Nitrogen 23 mg/dL (9-16); Calcium 9.3 mg/dL (8.4-10.2); Carbon Dioxide 28 mmol/L (22-29); Chloride 106 mmol/L (96-108); Creatinine Clr Calc Pharmacy 59.1; Estimated Glomerular Filt Rate 59; Glucose Random 120 mg/dL (60-115); Potassium 4.4 mmol/L (3.3-5.1); Sodium 141 mmol/L (135-145)
--- NOTE | 2022-02-21 08:09 | PC.NURSE ---
This tech brought pt her breakfast tray this morning, pt resting and eating. When pt was done with tray she used call maher to ask for bed purcell, pt had already had bowel movement. Cleaned patient and did complete bed change with new gown. pt boosted in bed and given new blankets.
[2022-02-21] MEDS: 0.9 % Sodium Chloride Flush 3 ML SYRINGE IVFLUSH ×3 (08:27→23:23)
[2022-02-21] MEDS: Furosemide 40 MG/4 ML VIAL IVPUSH (08:31)
[2022-02-21] MEDS: predniSONE 20 MG TABLET PO (08:31)
[2022-02-21] MEDS: Albuterol Sulfate (0.083%) 2.5 MG/3 ML VIAL.NEB INHALE ×2 (09:24→15:23)
--- NOTE | 2022-02-21 12:47 | PC.NURSE ---
report obtained from ed nurse, patient brought over to bed 5 in overflow, monitor technician applied- paced 80s, vss, pt denies pain/discomfort, marques patient/draining, call maher within reach, will continue to monitor
[2022-02-21] MEDS: cefTRIAXone sodium 1 GM in 0.9 % Sodium Chloride 50 ML IV (13:27)
--- NOTE | 2022-02-21 13:32 | P.PNIM_ITS ---
Subjective Subjective Date of Service: 02/21/22 Interval History: Seen in f/u for chf exacerbation and uti interval history: feels better, no sob, Review of Systems Gen: no fever Resp: + sob, no cough CV: no chest, + BRAUN, leg edema GI: No n/v, no abd pain Neuro: No confusion Physical Exam Vital Signs: Vital Signs: Last Vital Signs Temp 98.2 F 02/21/22 12:00 Pulse 85 02/21/22 12:00 Resp 20 02/21/22 12:00 BP 135/64 02/21/22 12:00 Pulse Ox 96 02/21/22 12:00 O2 Del Method 02/21/22 12:00 O2 Flow Rate 3 02/21/22 08:25 Oxygen Flow Rate 3 02/20/22 10:34 BMI result Body Mass Index 33.0 Const: Other: Constitutional: Alert, in no distress, Mental Status: Oriented to person, place and time. Eyes: Pupils are equal, round and reactive to light. Ear, Nose and Throat: Oropharynx clear, mucous membranes moist. Ears and nose without eformities. Trachea midline. Respiratory: moderate rales at both lung bases Cardiovascular: S1 S2 regular. No murmurs, rubs or gallops. 2+ pedal edema Gastrointestinal: Abdomen soft, non-tender, non-distended. Normal bowel sounds.? Neurologic: Cranial nerves II-XII grossly intact. No focal neurological deficits. Moves all extremities spontaneously.?A and O x3 Skin: No rashes or lesions.? Musculoskeletal: No cyanosis or clubbing. Psychiatric: Normal mood and affect? Objective Data Active Medications Acetaminophen (Acetaminophen 325 Mg Tablet) 650 mg PO Q6H PRN PRN Reason: Pain, Mild (Pain Scale 1-3) Albuterol Sulfate (Albuterol Sulfate (0.083%) 2.5 Mg/3 Ml Vial.Neb) 2.5 mg INHALE Q2H PRN PRN Reason: Shortness of Breath/Wheezing Albuterol Sulfate (Albuterol Sulfate (0.083%) 2.5 Mg/3 Ml Vial.Neb) 2.5 mg INHALE RQ4H WHILE AWAKE LINNEA Last Admin: 02/21/22 13:23 Dose: Not Given Documented By: ОЛЬГА Non-Admin Reason: pt unavail Furosemide (Furosemide 40 Mg/4 Ml Vial) 40 mg IVPUSH DAILY [facility]; Protocol Last Admin: 02/21/22 08:31 Dose: 40 mg Documented By: BRIAN Ceftriaxone Sodium 1 gm/ (Sodium Chloride) 50 mls @ 100 mls/hr IV Q24H [facility] Magnesium Hydroxide (Milk Of Magnesia 30 Ml Oral.Susp) 30 ml PO DAILY PRN PRN Reason: Constipation Melatonin (Melatonin 3 Mg Tablet) 6 mg PO BEDTIME PRN PRN Reason: Insomnia Last Admin: 02/20/22 21:56 Dose: 6 mg Documented By: BELEM Ondansetron HCl (Ondansetron Hcl 4 Mg/2 Ml Vial) 4 mg IVPUSH Q8H PRN PRN Reason: Nausea and Vomiting Pharmacy Consult (Consult Rx Perform Med Rec) 1 each MISCELLANE ONCE PRN PRN Reason: Consult order Prednisone (Prednisone 20 Mg Tablet) 20 mg PO DAILY [facility] Last Admin: 02/21/22 08:31 Dose: 20 mg Documented By: BRIAN Sodium Chloride (0.9 % Sodium Chloride Flush 3 Ml Syringe) 3 ml IVFLUSH QSHIFT [facility] Last Admin: 02/21/22 08:27 Dose: 3 ml Documented By: BRIAN Labs CBC & Chem 7: 02/20/22 11:36 02/21/22 03:26 Labs: Laboratory Results - last 24 hr 02/21/22 03:26 Anion Gap 11 L Estim Creat Clear Calc 59.1 Estimated GFR 59 Random Glucose 120 H Calcium 9.3 Microbiology Microbiology Results: Microbiology 02/20/22 11:08 Blood Culture - Preliminary Blood - Venous No growth after 24 hours. 02/20/22 Unknown Urine Culture - Final Urine Catheterized - Nelson Catheter Assessment and Plan (1) Acute dyspnea: Status: Acute (2) CHF (congestive heart failure): Status: Acute Plan 87-year-old female with past medical history of COPD, AFIB, chronic diastolic CHF, HTN, CHF here with decompensated acute on chronic diastolic heart failure with acute hypoxic respiatory failure and likely mild to moderate exacerbation of copd # Hypoxic respiratory failure-- d/t acute on chronic diastolic heart failure and copd -Treat underlying ChF with diuretics -Treat underlying copd with bronchodilators and steroid #? acute on chronic diastolic CHF exacerbation -IV diuretics for 1 more day, then to PO diuretics -monitor I/O, weight, BMP # COPD-- exacerbation -bronchodilators by Neb -po steroid #? Atrial fibrillation--rate controlled -? continue diltiazem, and Coumadin - daily INR #? hypertension -? continue diltiazem #? hypothyroidism -? continue levothyroxine #UTI--Ceftriaxone, follow culture DVT prophylaxis: coumadin Admission to [facility] at least 2 midnight for management of decompensated heart failure with hypoxia and need IV diuretics DNR/DNI Quality Stroke Does the patient have a stroke diagnosis?: No VTE Prior VTE?: No VTE Risk Level:: Medical - low VTE Device Contraindication: Treatment Not Indicated VTE Drug Contraindication: N/A - Med Ordered
--- NOTE | 2022-02-21 15:29 | MHC.CM.PN ---
IMM addressed copy given to patient and copy filed in chart. Pt reports she lives alone in a condo. She receives [employer] twice a day (2 hrs a.m. & 2 hrs p.m.), 7 days a wk from [facility], no other home services. She reports O2 at home (couldn't remember company). Uses walker and has toilet riser. Molst on file, HCP is cammy Stafford-copy requested. PCP: sees DEONDRE Georges. She is Covid vax'd x4 (3 pfizer & 1 MRNA). She believes nephew, Rivera, will transport home; however, if he's busy will need assistance securing ride home. D/C Plan: Home resume services
[2022-02-21] MEDS: Melatonin 3 MG TABLET 6 MG PO (21:33)
[2022-02-22] VITALS (11 sets, daily range): BP systolic 123–144; BP diastolic 65–84; PULSE 67–82; RESP 15–18; TEMP 36.1–36.9; O2SAT 92–99; BMI 33.0
[2022-02-22] MEDS: Albuterol Sulfate (0.083%) 2.5 MG/3 ML VIAL.NEB INHALE ×4 (08:44→19:52)
--- NOTE | 2022-02-22 10:10 | HO.PM.IMPN ---
Subjective Subjective Date of Service: 02/22/22 Interval History: Seen in f/u for chf exacerbation and uti interval history: feels better, no sob, anxious Review of Systems Gen: no fever Resp: + sob, no cough CV: no chest, + BRAUN, leg edema GI: No n/v, no abd pain Neuro: No confusion Physical Exam Vital Signs: Vital Signs: Last Vital Signs Temp 97.5 F 02/22/22 08:00 Pulse 67 02/22/22 08:46 Resp 17 02/22/22 08:46 BP 123/76 02/22/22 08:00 Pulse Ox 95 02/22/22 08:00 O2 Del Method 02/22/22 08:00 O2 Flow Rate 3.0 02/22/22 08:00 Oxygen Flow Rate 3 02/20/22 10:34 BMI result Body Mass Index 33.0 Const: Other: Constitutional: Alert, in no distress, Mental Status: Oriented to person, place and time. Eyes: Pupils are equal, round and reactive to light. Ear, Nose and Throat: Oropharynx clear, mucous membranes moist. Ears and nose without eformities. Trachea midline. Respiratory: moderate rales at both lung bases Cardiovascular: S1 S2 regular. No murmurs, rubs or gallops. 2+ pedal edema Gastrointestinal: Abdomen soft, non-tender, non-distended. Normal bowel sounds.? Neurologic: Cranial nerves II-XII grossly intact. No focal neurological deficits. Moves all extremities spontaneously.?A and O x3 Skin: No rashes or lesions.? Musculoskeletal: No cyanosis or clubbing. Psychiatric: Normal mood and affect? Objective Data Active Medications Acetaminophen (Acetaminophen 325 Mg Tablet) 650 mg PO Q6H PRN PRN Reason: Pain, Mild (Pain Scale 1-3) Albuterol Sulfate (Albuterol Sulfate (0.083%) 2.5 Mg/3 Ml Vial.Neb) 2.5 mg INHALE Q2H PRN PRN Reason: Shortness of Breath/Wheezing Albuterol Sulfate (Albuterol Sulfate (0.083%) 2.5 Mg/3 Ml Vial.Neb) 2.5 mg INHALE RQ4H WHILE AWAKE LINNEA Last Admin: 02/22/22 08:44 Dose: 2.5 mg Documented By: BIBIANA Doxazosin Mesylate (Doxazosin Mesylate 1 Mg Tablet) 1 mg PO BEDTIME [facility] Doxepin HCl (Doxepin Hcl 10 Mg Capsule) 10 mg PO BEDTIME PRN PRN Reason: Itching Fluticasone/Vilanterol (Fluticasone/Vilanterol 100/25 Blst.W.Dev) 1 puff INHALE DAILY [facility] Furosemide (Furosemide 40 Mg/4 Ml Vial) 40 mg IVPUSH DAILY [facility]; Protocol Last Admin: 02/21/22 08:31 Dose: 40 mg Documented By: BRIAN Ceftriaxone Sodium 1 gm/ (Sodium Chloride) 50 mls @ 100 mls/hr IV Q24H [facility] Last Infusion: 02/21/22 15:26 Dose: 0 mls/hr Documented By: DARRYN Lactic Acid (Ammonium Lactate 12 % Cream 140 Gm Tube) 1 appl TOPICAL BID [facility]; Protocol Magnesium Hydroxide (Milk Of Magnesia 30 Ml Oral.Susp) 30 ml PO DAILY PRN PRN Reason: Constipation Melatonin (Melatonin 3 Mg Tablet) 6 mg PO BEDTIME PRN PRN Reason: Insomnia Last Admin: 02/21/22 21:33 Dose: 6 mg Documented By: MOHINI Ondansetron HCl (Ondansetron Hcl 4 Mg/2 Ml Vial) 4 mg IVPUSH Q8H PRN PRN Reason: Nausea and Vomiting Pharmacy Consult (Consult Rx Perform Med Rec) 1 each MISCELLANE ONCE PRN PRN Reason: Consult order Prednisone (Prednisone 20 Mg Tablet) 20 mg PO DAILY [facility] Last Admin: 02/21/22 08:31 Dose: 20 mg Documented By: BRIAN Sodium Chloride (0.9 % Sodium Chloride Flush 3 Ml Syringe) 3 ml IVFLUSH QSHIFT [facility] Last Admin: 02/21/22 23:23 Dose: 3 ml Documented By: MOHINI Warfarin Sodium (Warfarin Sodium 2.5 Mg Tablet) 2.5 mg PO SUTUTHSA@1800 [facility] Warfarin Sodium (Warfarin Sodium 5 Mg Tablet) 5 mg PO MOWEFR@1800 [facility] Zolpidem Tartrate (Zolpidem Tartrate 5 Mg Tablet) 5 mg PO BEDTIME PRN PRN Reason: Insomnia Labs CBC & Chem 7: 02/20/22 11:36 02/21/22 03:26 Microbiology Microbiology Results: Microbiology 02/20/22 11:36 Blood Culture - Preliminary Blood - Venous No growth after 24 hours. 02/20/22 11:08 Blood Culture - Preliminary Blood - Venous No growth after 24 hours. 02/20/22 Unknown Urine Culture - Final Urine Catheterized - Nelson Catheter Assessment and Plan (1) Acute dyspnea: Status: Acute (2) CHF (congestive heart failure): Status: Acute Plan 87-year-old female with past medical history of COPD, AFIB, chronic diastolic CHF, HTN, CHF here with decompensated acute on chronic diastolic heart failure with acute hypoxic respiatory failure and likely mild to moderate exacerbation of copd # Hypoxic respiratory failure-- d/t acute on chronic diastolic heart failure and copd -Treat underlying ChF with diuretics -Treat underlying copd with bronchodilators and steroid #? acute on chronic diastolic CHF exacerbation -PO diuretics -monitor I/O, weight, BMP # COPD-- exacerbation -bronchodilators by Neb -po steroid #? Atrial fibrillation--rate controlled -? continue diltiazem, and Coumadin - daily INR #? hypertension -? continue diltiazem #? hypothyroidism -? continue levothyroxine #UTI--Ceftriaxone, dc after 3 days, culture nagative DVT prophylaxis: coumadin need for inpatient: chf with hypoxia getting Iv lasix PT eval and possibly home DNR/DNI Quality Stroke Does the patient have a stroke diagnosis?: No VTE Prior VTE?: No VTE Risk Level:: Medical - low VTE Device Contraindication: Treatment Not Indicated VTE Drug Contraindication: N/A - Med Ordered
[2022-02-22 10:49] LABS: INTERNATIONAL NORM RATIO 2.3 (0.9-1.1); Prothrombin Time 27.4 SEC (10.0-13.1)
[2022-02-22] MEDS: predniSONE 20 MG TABLET PO (11:12)
[2022-02-22] MEDS: 0.9 % Sodium Chloride Flush 3 ML SYRINGE IVFLUSH ×3 (11:12→19:39)
[2022-02-22] MEDS: Furosemide 40 MG/4 ML VIAL IVPUSH (11:31)
[2022-02-22] MEDS: cefTRIAXone sodium 1 GM in 0.9 % Sodium Chloride 50 ML IV (15:47)
--- NOTE | 2022-02-22 17:49 | PC.NURSE ---
Patient companing of pain from marques catheter. No drainage in bag. Leaked urine upon adjusting and reinflating balloon. Bladder scanned for 175cc. Order from provider to attempt irrigation and remove if difficulty. Unable to hand irrigate catheter so removed. Patient instantly soaked through bedding very large amount of urine. Purewick placed and draining appropriately. Patient denies further discomfort. Jolene states that patient was supposed to f/u with urology today outpatient for voiding trial. Will continue to monitor.
[2022-02-22] MEDS: Warfarin Sodium 5 MG TABLET PO (18:20)
[2022-02-22] MEDS: Ammonium Lactate 12 % Cream 140 GM TUBE 1 APPL TOPICAL (19:39)
[2022-02-22] MEDS: Doxazosin Mesylate 1 MG TABLET PO (19:40)
[2022-02-22] MEDS: Zolpidem Tartrate 5 MG TABLET PO (20:06)
[2022-02-23] VITALS: BP 124/58; PULSE 80; RESP 16; TEMP 36.4; O2SAT 95
[2022-02-23 03:40] VITALS: BP 109/56; PULSE 73; RESP 16; TEMP 36.5; O2SAT 95
[2022-02-23 08:00] VITALS: BP 116/56; PULSE 65; RESP 16; TEMP 36.3; O2SAT 96
--- NOTE | 2022-02-23 09:23 | MHC.CM.PN ---
PATIENT ASKS FOR REFERRALS (IN ORDER OF PREFERENCE) TO [facility] AND [facility] IS OFFERING. PLAN IS NOW NOON TRANSPORT [facility]IA [facility] TO FACILITY. IMM 02/21 IN CHART RN AND UNIT TO BE MADE AWARE
--- NOTE | 2022-02-23 09:28 | P.DS_ITS ---
DS: Providers Provider Date of Service: 02/23/22 Date of admission: 02/20/22 14:41 Primary care physician: Unknown Physician DS: Diagnosis Discharge Diagnosis (1) Acute dyspnea: Status: Resolved (2) CHF (congestive heart failure): Status: Inactive DS: Summary Hospital Course Hospital Course: Admission HPI: Chief Complaint: Shortness of breath 85-year-old female with past medical history of COPD on home oxygen,? AFib on co uamdin, diastolic heart failure on chronic diuretics, chronic marques for urinary retention, she is accompanied by her niece and? presents to the hospital with complaint of increasing shortness of breath since last week and had diuretics dose recently adjusted. She woke up today with much difficulty breathing, also has noted her urine to be much cloudy with order, marques cather was inserted about 2 weeks d/t urinary retention and was supposed to see Dr Otoole. CXR show pulmonary edema, BNP is only 155 but chronically low. She's given IV Lasix 20 mg, IV ceftriaxone for UTI and is being admitted hospital course by problem # Hypoxic respiratory failure-- d/t acute on chronic diastolic heart failure and copd--this has resolved with Treatment of underlying issues of COPD and heart failur #Acute on chronic diastolic heart failure with exacerbation, no acute ischemia. Treated with IV Lasix with improvement and will transition back to her home lasix dose # COPD-- exacerbation mild, treated with bronchodilators and steroid, no indication for additional steroid time. O2. Oxygen at 2 liters by nasal joselyn. O2 saturation can be falsely low due to cold extremities and might have to try different digits to get accurate number #?Chronic Atrial fibrillation--rate controlled -? continue diltiazem, and Coumadin with target INR 2 to 3, toay 2.3 #? hypertension controlled -? continue diltiazem #? hypothyroidism -? continue levothyroxine #UTI--Ceftriaxone for 3 days, culture negative, no fever, so no indication for further Antibiotics at this time Patient is deconditioned and is going to short term rehab Time Spent with Patient Time attestation: Total time spent providing and/or coordinating discharge services: Discharge coordination time: Greater than 30 minutes Quality: Safe Use of Opioids Does Pt have an Active Cancer Diagnosis on the Problem List?: No Quality: Stroke Does the patient have a stroke diagnosis?: No Physical Exam Vital Signs: Vital Signs: Last Vital Signs Temp 97.4 F 02/23/22 08:00 Pulse 65 02/23/22 08:00 Resp 16 02/23/22 08:00 BP 116/56 L 02/23/22 08:00 Pulse Ox 96 02/23/22 08:00 O2 Del Method 02/23/22 08:00 O2 Flow Rate 3 02/23/22 08:00 Oxygen Flow Rate 3 02/20/22 10:34 BMI result Body Mass Index 33.0 Const: Other: General: AO X 3, no acute distress Resp: CTA bilateral CVS: S1,S2,RRR GI: +BS, NT, no distention Skin: No rash Neuro: motor grossly intact Psych: appropriate affect DS: Data Data Completed and Pending Completed studies during hospitalization [Text1]: Procedures Assistance with Respiratory Ventilation, Less than 24 Consecutive Hours, Continuous Positive Airway Pressure (05/18/20) Labs on day of discharge: Laboratory Results - last 24 hr 02/22/22 10:37 PT 27.4 H INR 2.3 H Preliminary micro results at discharge 02/20/22 11:36 Blood Culture - Preliminary Blood - Venous No growth after 48 hours. 02/20/22 11:08 Blood Culture - Preliminary Blood - Venous No growth after 48 hours. Discharge Plan Discharge Anticipated Discharge Date/Time: 02/23/22 09:24 Patient Disposition: er SNF Discharge Diagnosis: exacerbation of congestive failure, UTI Referrals: [facility] [Outside] - 1 Week Physician,Unknown J [Physician] - 1 Week Discharge Medications: Continued fluticasone furoate-vilanterol [Breo Ellipta] 100-25 mcg/dose blister with device 1 puff PO DAILY furosemide 40 mg tablet 40 mg PO DAILY levothyroxine 88 mcg tablet 88 mcg PO DAILY omeprazole 20 mg capsule,delayed release(DR/EC) 20 mg PO DAILY potassium chloride 10 mEq tablet extended release 10 meq PO DAILY warfarin 5 mg tablet 2.5 mg PO SUTUTHSA@1800 warfarin 5 mg tablet 5 mg PO MOWEFR@1800 diltiazem HCl 120 mg capsule,extended release 24hr 120 mg PO DAILY zolpidem 10 mg tablet 5 mg PO BEDTIME PRN (Reason: Insomnia) ammonium lactate 12 % cream 1 appl topical BID doxepin 10 mg capsule 10 mg PO BEDTIME PRN (Reason: Itching) terazosin 1 mg capsule 1 mg PO BEDTIME 30 Days Qty: 30 1RF Discharge Orders: Discharge Order (Routine); Ordered 02/23/22 Ordered By: Chris Amaya Diet: Advance to usual diet Activity on Discharge: As tolerated Stand Alone Forms: Patient Portal Discharge page Care Plan Goals: for recovery exacerbation. Health Concerns: chronic heart failure Plan of Treatment: take Lasix as directed take Ceftin new tract infection participating acute rehab to help regain your prior level of functioning Assessment: See above Discharge Date/Time: 02/23/22 15:45
[2022-02-23] MEDS: Fluticasone/Vilanterol 100/25 BLST.W.DEV 1 PUFF INHALE (09:47)
[2022-02-23] MEDS: Albuterol Sulfate (0.083%) 2.5 MG/3 ML VIAL.NEB INHALE ×2 (09:47→12:33)
[2022-02-23 09:49] VITALS: PULSE 65; RESP 19; O2SAT 96
[2022-02-23] MEDS: predniSONE 20 MG TABLET PO (10:17)
[2022-02-23] MEDS: 0.9 % Sodium Chloride Flush 3 ML SYRINGE IVFLUSH (10:17)
[2022-02-23] MEDS: Ammonium Lactate 12 % Cream 140 GM TUBE 1 APPL TOPICAL (10:18)
[2022-02-23 11:10] LABS: Blood Urea Nitrogen 26 mg/dL (9-16); Calcium 9.3 mg/dL (8.4-10.2); Estimated Glomerular Filt Rate > 60; Glucose Random 100 mg/dL (60-115)
[2022-02-23 11:35] LABS: Anion Gap 12 (12-20); Carbon Dioxide 30 mmol/L (22-29); Chloride 102 mmol/L (96-108); Potassium 3.4 mmol/L (3.3-5.1); Sodium 141 mmol/L (135-145)
[2022-02-23 11:40] VITALS: BP 106/49; PULSE 88; RESP 16; TEMP 36.7; O2SAT 96
[2022-02-23 12:12] LABS: COVID-19 Test Negative (Negative); IDNOW Serial# 16C4AD1C
[2022-02-23 12:37] VITALS: PULSE 76; RESP 20; O2SAT 99
[2022-02-23] MEDS: cefTRIAXone sodium 1 GM in 0.9 % Sodium Chloride 50 ML IV (12:43)
== END 2022-02-23 15:45 | disposition skilled nursing facility (03) | DRG 291 ==
LOC: HO.ED 13:24 → HO.EDOVER 14:48 → HO.S3 02-21 12:35
PROVIDERS: Admitting Provider Internal Medicine; Emergency Provider Emergency Medicine; PCP Nurse Practitioner Family; Visit Provider Internal Medicine
DX: I11.0 Hypertensive heart disease with heart failure (principal); I50.33 Acute on chronic diastolic (congestive) heart failure; J96.21 Acute and chronic respiratory failure with hypoxia; J44.1 Chronic obstructive pulmonary disease with (acute) exacerbation; I48.20 Chronic atrial fibrillation, unspecified; Z66 Do not resuscitate; R33.9 Retention of urine, unspecified; Z96.0 Presence of urogenital implants; Z99.81 Dependence on supplemental oxygen; Z20.822 Contact with and (suspected) exposure to COVID-19; Z95.0 Presence of cardiac pacemaker; Z95.2 Presence of prosthetic heart valve; Z87.891 Personal history of nicotine dependence; Z79.01 Long term (current) use of anticoagulants; Z79.51 Long term (current) use of inhaled steroids; Z79.899 Other long term (current) drug therapy
CPT/HCPCS: 36415; 71045; 80048; 80076; 81001; 82803; 83605; 83690; 83735; 83880; 84484; 85025; 85610; 87040; 87086; 87635; 93005; 94640; 96365; 96375; 97162; 99285; J0696; J1940

== ENCOUNTER 2022-04-21 12:15 | Inpatient (IN) | payer MEDICARE, OTHER, SELFPAY ==
[2022-04-21] VITALS (9 sets, daily range): BP systolic 100–113; BP diastolic 39–53; PULSE 68–100; RESP 18–28; TEMP 36.7–37.2; O2SAT 77–99; BMI 41.1
--- NOTE | ~2022-04-21 | XR_ITS ---
EXAMINATION: XR CHEST CLINICAL INFORMATION: Shortness of breath COMPARISON: 02/21/2020 TECHNIQUE: Frontal view of the chest was obtained. FINDINGS: Increase interstitial markings. This may indicate vascular congestion. Minimal basilar markings may indicate small areas of atelectasis or infiltrate. The pacer wires unchanged in position. The cardiac silhouette is similar. XR/XR chest 1V IMPRESSION: By basilar markings may represent small areas of atelectasis or infiltrate. There is also mild vascular congestion on this study
--- NOTE | 2022-04-21 12:30 | ECG_ITS ---
Test Reason : SOB Blood Pressure : / mmHG Vent. Rate : 079 BPM Atrial Rate : 000 BPM P-R Int : 000 ms QRS Dur : 088 ms QT Int : 460 ms P-R-T Axes : 000 002 000 degrees QTc Int : 527 ms Atrial fibrillation with frequent ventricular-paced complexes Nonspecific T wave abnormality Abnormal ECG When compared with ECG of 20-FEB-2022 11:15, Vent. rate has increased BY 9 BPM Referred By: Maryann Garg Electronically Signed By:SLOAN ORR
[2022-04-21] MEDS: Albuterol Sulfate 5 MG, Albuterol Sulfate (0.083%) 2.5 MG 7.5 MG INHALE (12:34)
--- NOTE | 2022-04-21 12:34 | ED.GENADULT ---
HPI - General Adult General Chief complaint: Dyspnea Stated complaint: RESPIRATORY DISTRESS Time Seen by Provider: 04/21/22 12:24 Source: patient and EMS Mode of arrival: EMS Limitations: no limitations History of Present Illness HPI narrative: 87-year-old female brought in by ambulance from a alf for difficulty breathing and being hypoxic at 77% on 4L of O2 Patient is a COPD, diastolic heart failure, use home supplemental oxygen 2.5 L, patient had increased shortness of breath at the alf this morning with no chest pain. EMS placed the patient on none rebreather and transported the patient to the ED, patient improved in route, in emergency department was given 5 L of O2 on oxymask breathing comfortably and satting 95% pressure patient had similar symptoms in the past and was contributed to her COPD exacerbation and diastolic heart failure problem. Related Data Home Medications Medication Instructions Recorded Confirmed fluticasone furoate 100 1 puff PO DAILY 03/09/21 04/21/22 mcg-vilanterol 25 mcg/dose inhalation powder (Breo Ellipta) diltiazem HCl 120 mg 120 mg PO DAILY 09/20/21 04/21/22 capsule,extended release 24 hr furosemide 40 mg tablet 60 mg PO DAILY 09/20/21 04/21/22 levothyroxine 88 mcg tablet 88 mcg PO DAILY 09/20/21 04/21/22 omeprazole 20 mg capsule,delayed 20 mg PO DAILY 09/20/21 04/21/22 release potassium chloride 10 mEq 10 meq PO DAILY 09/20/21 04/21/22 tablet,extended release zolpidem 10 mg tablet 5 mg PO BEDTIME PRN Insomnia 12/18/21 04/21/22 doxepin 10 mg capsule 10 mg PO BEDTIME PRN Itching 01/22/22 04/21/22 warfarin 5 mg tablet 5 mg PO DAILY 02/20/22 04/21/22 Previous Rx's Medication Instructions Recorded terazosin 1 mg capsule 1 mg PO BEDTIME 30 days #30 caps 01/22/22 Allergies Allergy/AdvReac Type Severity Reaction Status Date / Time pine nut [PINE NUT] Allergy Unknown RASH Verified 02/11/22 13:09 Review of Systems Review of Systems: All other systems are reviewed and are negative Constitutional: Reports as per HPI and Reports no additional constitutional complaints Eyes: Reports as per HPI and Reports no additional eye complaints Reports system reviewed and no additional complaints, except as documented Cardiovascular: Reports as per HPI and Reports no additional cardiovascular complaints Respiratory: Reports as per HPI and Reports no additional respiratory complaints Gastrointestinal: Reports as per HPI and Reports no additional gastrointestinal complaints Genitourinary: Reports no additional female genitourinary complaints Musculoskeletal: Reports no additional musculoskeletal complaints Skin/Breast: Reports system reviewed and no additional complaints, except as docu Psychiatric: Reports no additional psychiatric complaints Endocrine: Reports no additional endocrine complaints Hematologic/Lymphatic: Reports no additional hematologic/lymphatic complaints Allergic/Immunologic: Reports no additional allergic/immunologic complaints Reports system reviewed and no additional complaints, except as documented and Reports Abnormal speech present [facility] Past Medical History Medical History Cardiac pacemaker in situ CHF (congestive heart failure) Chronic atrial fibrillation Chronic respiratory failure with hypoxia Congestive heart failure COPD (chronic obstructive pulmonary disease) Hypertension Surgical History H/O mitral valve replacement History of permanent cardiac pacemaker placement Hx of mitral valve repair Family History Family History Mother Liver cancer Social History Social History Household Members: None Housing: Condominium Do you presently have visiting nurse or other home services: Yes Alcohol intake: never Patient Tobacco Use Status: Former Tobacco user Second Hand Smoke Exposure: No Advance Directives: Yes Advance Directives on File: Yes Advance Directives Date on File: 01/05/21 service: No Current occupational status: retired Physical Exam ED Vital Signs: Vital Signs - 24 hr 04/21/22 12:23 04/21/22 12:31 04/21/22 12:38 Temperature 98.1 F Pulse Rate 68 70 Respiratory Rate 18 28 H Blood Pressure 104/39 L Pulse Oximetry 98 Oxygen Delivery Method Oxymask Oxygen Flow Rate 04/21/22 13:44 Temperature Pulse Rate 92 Respiratory Rate 24 H Blood Pressure 106/51 L Pulse Oximetry 97 Oxygen Delivery Method Oxymask Oxygen Flow Rate 5 BMI result Body Mass Index 41.1 Vital signs have been reviewed as appeared to be correct. Blood pressure normal. Heart rate normal. Respiration rate normal. Temperature normal. Oxygen saturation normal. Appearance: Alert. Oriented X3. No acute distress. Head: Normal external exam. Normocephalic. Atraumatic. No Buckley signs noted. No raccoon eyes noted Eyes: PERRLA. EOMI. Conjunctiva and sclera normal. Eyelids normal. ENT: TM's Normal. Pharynx normal. Uvula midline. Moist mucous membranes. No trismus noted. No drooling noted. No muffled voice noted. Neck: Normal inspection. Neck supple. FROM. No adenopathy. Thyroid Normal. No meningeal signs. No neck mass noted. CVS: Normal heart rate and rhythm. Heart sound normal. No murmurs noted. Pulses normal throughout. Respiratory: No respiratory distress. Painless inspiration. Breath sounds normal. Diffuse mild expiratory wheezing with prolonged expiration.. Chest nontender. No accessory muscle usage noted or decreased air movement noted. Abdomen: Soft and nontender. Bowel sounds normal in all 4 quadrants. No distention noted. No organomegaly noted. No visible injury noted. Back: No CVA tenderness. Full range of motion noted. Skin: Skin warm and dry. Normal skin color. Normal skin turgor. No rashes/lesions/lacerations noted. Extremities: No lower extremity edema. Extremities exhibit normal range of motion. Extremities nontender. Neuro: Oriented X 3. Cranial nerve exam: II-XII are grossly intact No motor deficit. No sensory deficit. Reflexes normal. Course Course Course Narrative: 87-year-old female history of COPD and CHF came in for shortness of breath and becoming hypoxic despite her normal 2.5 L of oxygen, on arrival patient had wheezing with prolonged expiration which felt to be COPD exacerbation also patient has bilateral rales with bilateral edema. Patient presented with COPD exacerbation and CHF. Patient received bronchodilator/Solu-Medrol and Lasix. Improvement of hypoxia with 5 L of OxyMask. Medical Decision Making Lab Data Lab results reviewed: Yes I reviewed the patient's lab results. Result diagrams: 04/21/22 13:39 04/21/22 13:39 Labs: Lab Results 04/21/22 04/21/22 04/21/22 Range/Units 13:39 13:39 13:39 WBC 11.7 H (4.8-10.8) X10*3/uL RBC 3.56 L (4.20-5.50) X10*6/uL Hgb 10.6 L (12.0-16.0) g/dl Hct 32.6 L (37.0-47.0) % MCV 91.6 (80.0-98.0) fL MCH 29.8 (27.0-33.0) pg MCHC 32.5 (31.0-35.0) g/dl RDW 15.6 (11.0-16.0) % Plt Count 168 (160-400) X10*3/uL MPV 12.6 H (9.4-12.3) fL Immature Gran % (Auto) 0.6 H (0.0-0.4) % Neut % (Auto) 69.7 (45-73) % Lymph % (Auto) 13.7 L (20-40) % [place] % (Auto) 12.9 H (2-11) % Eos % (Auto) 2.4 (0-4) % Baso % (Auto) 0.7 (0-2) % Lymph # (Auto) 1.6 (1.2-4.9) X10*3/uL [place] # (Auto) 1.5 H (0.1-1.2) X10*3/uL Eos # (Auto) 0.3 (0.0-0.4) X10*3/uL Baso # (Auto) 0.1 (0.0-0.2) X10*3/uL Abs Immat Gran (auto) 0.07 H (0.00-0.03) X10*3/uL Absolute Neuts (auto) 8.1 (2.0-8.3) x10*3/uL Absolute Nucleated RBC 0.000 (0.0-0.012) X10*3/uL Nucleated RBC % (auto) 0.0 (0.0-0.2) /100WBC Smear Tech's Comments VERIFIED PT (10.0-13.1) SEC INR (0.9-1.1) Sodium 141 (135-145) mmol/L Potassium 4.2 D (3.3-5.1) mmol/L Chloride 103 (96-108) mmol/L Carbon Dioxide 22 (22-29) mmol/L Anion Gap 20 (12-20) BUN 19 H (9-16) mg/dL Creatinine 0.93 (0.5-1.4) mg/dL Estim Creat Clear Calc 51.3 Estimated GFR 57 Random Glucose 103 (60-115) mg/dL Lactic Acid (0.5-2.0) mmol/L Calcium 8.6 D (8.4-10.2) mg/dL Total Bilirubin 1.0 (0.0-1.0) mg/dL Direct Bilirubin 0.4 (0.0-0.5) mg/dL AST 17 (5-31) U/L ALT 11 (0-31) U/L Alkaline Phosphatase 97 (39-117) U/L Troponin I High Sens 11.4 (<3.5-17.0) ng/L B-Natriuretic Peptide (<100) pg/mL Total Protein 6.0 L (6.5-8.0) g/dL Albumin 3.4 L (3.5-5.0) g/dL Lipase 9 (8-78) U/L Influenza Type A (PCR) (Negative) Influenza Type B (PCR) (Negative) RSV RNA Qual (PCR) (Negative) SARS-CoV-2 RNA (RT-PCR) (Negative) 04/21/22 04/21/22 04/21/22 Range/Units 13:39 13:39 13:39 WBC (4.8-10.8) X10*3/uL RBC (4.20-5.50) X10*6/uL Hgb (12.0-16.0) g/dl Hct (37.0-47.0) % MCV (80.0-98.0) fL MCH (27.0-33.0) pg MCHC (31.0-35.0) g/dl RDW (11.0-16.0) % Plt Count (160-400) X10*3/uL MPV (9.4-12.3) fL Immature Gran % (Auto) (0.0-0.4) % Neut % (Auto) (45-73) % Lymph % (Auto) (20-40) % [place] % (Auto) (2-11) % Eos % (Auto) (0-4) % Baso % (Auto) (0-2) % Lymph # (Auto) (1.2-4.9) X10*3/uL [place] # (Auto) (0.1-1.2) X10*3/uL Eos # (Auto) (0.0-0.4) X10*3/uL Baso # (Auto) (0.0-0.2) X10*3/uL Abs Immat Gran (auto) (0.00-0.03) X10*3/uL Absolute Neuts (auto) (2.0-8.3) x10*3/uL Absolute Nucleated RBC (0.0-0.012) X10*3/uL Nucleated RBC % (auto) (0.0-0.2) /100WBC Smear Tech's Comments PT 19.6 H (10.0-13.1) SEC INR 1.7 H (0.9-1.1) Sodium (135-145) mmol/L Potassium (3.3-5.1) mmol/L Chloride (96-108) mmol/L Carbon Dioxide (22-29) mmol/L Anion Gap (12-20) BUN (9-16) mg/dL Creatinine (0.5-1.4) mg/dL Estim Creat Clear Calc Estimated GFR Random Glucose (60-115) mg/dL Lactic Acid 1.6 (0.5-2.0) mmol/L Calcium (8.4-10.2) mg/dL Total Bilirubin (0.0-1.0) mg/dL Direct Bilirubin (0.0-0.5) mg/dL AST (5-31) U/L ALT (0-31) U/L Alkaline Phosphatase (39-117) U/L Troponin I High Sens (<3.5-17.0) ng/L B-Natriuretic Peptide 195 H (<100) pg/mL Total Protein (6.5-8.0) g/dL Albumin (3.5-5.0) g/dL Lipase (8-78) U/L Influenza Type A (PCR) (Negative) Influenza Type B (PCR) (Negative) RSV RNA Qual (PCR) (Negative) SARS-CoV-2 RNA (RT-PCR) (Negative) 04/21/22 Range/Units 13:39 WBC (4.8-10.8) X10*3/uL RBC (4.20-5.50) X10*6/uL Hgb (12.0-16.0) g/dl Hct (37.0-47.0) % MCV (80.0-98.0) fL MCH (27.0-33.0) pg MCHC (31.0-35.0) g/dl RDW (11.0-16.0) % Plt Count (160-400) X10*3/uL MPV (9.4-12.3) fL Immature Gran % (Auto) (0.0-0.4) % Neut % (Auto) (45-73) % Lymph % (Auto) (20-40) % [place] % (Auto) (2-11) % Eos % (Auto) (0-4) % Baso % (Auto) (0-2) % Lymph # (Auto) (1.2-4.9) X10*3/uL [place] # (Auto) (0.1-1.2) X10*3/uL Eos # (Auto) (0.0-0.4) X10*3/uL Baso # (Auto) (0.0-0.2) X10*3/uL Abs Immat Gran (auto) (0.00-0.03) X10*3/uL Absolute Neuts (auto) (2.0-8.3) x10*3/uL Absolute Nucleated RBC (0.0-0.012) X10*3/uL Nucleated RBC % (auto) (0.0-0.2) /100WBC Smear Tech's Comments PT (10.0-13.1) SEC INR (0.9-1.1) Sodium (135-145) mmol/L Potassium (3.3-5.1) mmol/L Chloride (96-108) mmol/L Carbon Dioxide (22-29) mmol/L Anion Gap (12-20) BUN (9-16) mg/dL Creatinine (0.5-1.4) mg/dL Estim Creat Clear Calc Estimated GFR Random Glucose (60-115) mg/dL Lactic Acid (0.5-2.0) mmol/L Calcium (8.4-10.2) mg/dL Total Bilirubin (0.0-1.0) mg/dL Direct Bilirubin (0.0-0.5) mg/dL AST (5-31) U/L ALT (0-31) U/L Alkaline Phosphatase (39-117) U/L Troponin I High Sens (<3.5-17.0) ng/L B-Natriuretic Peptide (<100) pg/mL Total Protein (6.5-8.0) g/dL Albumin (3.5-5.0) g/dL Lipase (8-78) U/L Influenza Type A (PCR) NEGATIVE (Negative) Influenza Type B (PCR) NEGATIVE (Negative) RSV RNA Qual (PCR) NEGATIVE (Negative) SARS-CoV-2 RNA (RT-PCR) NEGATIVE (Negative) Imaging Data Chest x-ray: Attestation: I personally reviewed and interpreted this imaging study as follows: Radiologist's impression: By basilar markings may represent small areas of atelectasis or infiltrate. There is also mild vascular congestion on this study ? ECG Data Attestation: I personally reviewed and interpreted this ECG as follows: Interpretation: AFib with frequent PVCs at 79 beats per minute, slight QT prolongation, nonspecific ST-T changes. Discharge Plan Discharge Clinical Impression: Acute exacerbation of chronic obstructive airways disease, On Coumadin for atrial fibrillation, Congestive heart failure Patient Disposition: Admitted As Inpatient
[2022-04-21] MEDS: Albuterol Sulfate (0.083%) 2.5 MG/3 ML VIAL.NEB INHALE (12:35)
[2022-04-21] MEDS: Albuterol/Iprat 2.5/0.5MG 3 ML AMPUL.NEB INHALE ×3 (12:37→19:37)
--- NOTE | 2022-04-21 13:20 | PC.NURSE ---
unable to obtain bloodwork with iv placement, tech in for blood draw. pt has remained stable on 6L via oxymask, speaking in clear full sentences a&ox3.
[2022-04-21] MEDS: methylPREDNISolone Sod Succ 125 MG/2 ML VIAL IVPUSH (13:41)
[2022-04-21] MEDS: Furosemide 40 MG/4 ML VIAL IVPUSH ×2 (13:41→19:56)
[2022-04-21] MEDS: Azithromycin 500 MG in 0.9 % Sodium Chloride 250 ML 125 MG IV (13:42)
[2022-04-21 13:49] LABS: Basophils Absolute Auto 0.1 X10*3/uL (0.0-0.2); Basophils Percent Auto 0.7 % (0-2); Eosinophils Absolute Auto 0.3 X10*3/uL (0.0-0.4); Eosinophils Percent Auto 2.4 % (0-4); Hematocrit 32.6 % (37.0-47.0); Hemoglobin 10.6 g/dl (12.0-16.0); Imm Gran Abs Auto 0.07 X10*3/uL (0.00-0.03); Imm Gran Pct Auto 0.6 % (0.0-0.4); Lymphocytes Absolute Auto 1.6 X10*3/uL (1.2-4.9); Lymphocytes Percent Auto 13.7 % (20-40); MANUAL DIFF FLAG SCAN; Mean Corpuscular HGB Conc 32.5 g/dl (31.0-35.0); Mean Corpuscular Hemoglobin 29.8 pg (27.0-33.0); Mean Corpuscular Volume 91.6 fL (80.0-98.0); Mean Platelet Volume 12.6 fL (9.4-12.3); Monocytes Absolute Auto 1.5 X10*3/uL (0.1-1.2); Monocytes Percent Auto 12.9 % (2-11); Neutrophils Absolute Auto 8.1 x10*3/uL (2.0-8.3); Neutrophils Percent Auto 69.7 % (45-73); PLT CLUMP 1; Red Blood Count 3.56 X10*6/uL (4.20-5.50); Red Cell Distribution Width 15.6 % (11.0-16.0); SCAN SMEAR FLAG 1
[2022-04-21 13:55] LABS: INTERNATIONAL NORM RATIO 1.7 (0.9-1.1); Prothrombin Time 19.6 SEC (10.0-13.1)
[2022-04-21 13:59] LABS: Lactic Acid 1.6 mmol/L (0.5-2.0)
[2022-04-21 14:05] LABS: White Blood Count 11.7 X10*3/uL (4.8-10.8)
[2022-04-21 14:06] LABS: Platelet Count 168 X10*3/uL (160-400); SLIDE REVIEW VERIFIED
[2022-04-21 14:11] LABS: B Type Natriuretic Peptide 195 pg/mL (<100); Troponin-I High Sensitivity 11.4 ng/L (<3.5-17.0)
[2022-04-21 14:17] LABS: Alanine Aminotransferase 11 U/L (0-31); Albumin Level 3.4 g/dL (3.5-5.0); Alkaline Phosphatase 97 U/L (39-117); Anion Gap 20 (12-20); Aspartate Amino Transferase 17 U/L (5-31); Bilirubin Direct 0.4 mg/dL (0.0-0.5); Blood Urea Nitrogen 19 mg/dL (9-16); Calcium 8.6 mg/dL (8.4-10.2); Carbon Dioxide 22 mmol/L (22-29); Chloride 103 mmol/L (96-108); Creatinine Clr Calc Pharmacy 51.3; Estimated Glomerular Filt Rate 57; Glucose Random 103 mg/dL (60-115); Lipase 9 U/L (8-78); Potassium 4.2 mmol/L (3.3-5.1); Sodium 141 mmol/L (135-145)
[2022-04-21 14:30] LABS: Influenza A PCR NEGATIVE (Negative); Influenza B PCR NEGATIVE (Negative); Resp Syncy Virus RNA Qual PCR NEGATIVE (Negative); SARS COV2 PCR INHOUSE NEGATIVE (Negative)
--- NOTE | 2022-04-21 14:40 | PC.NURSE ---
PER MILAN, PT WAS CHANGED TO WAFARIN 5MG QD FROM 04/19-04/22/22 AFTER INR DRAWN ON 04/19 WAS 1.25
--- NOTE | 2022-04-21 14:43 | P.HPHOSP_ITS ---
History of Present Illness Date of Service: 04/21/22 Chief Complaint: sob 87F pmh hypoxic respiratory failure secondary to COPD on 2.5 L home oxygen, chronic atrial fibrillation on Coumadin, chronic diastolic CHF, chronic Nelson for urinary retention, hypertension, presented from long term for shortness of breath. Patient has been at [facility] for physical therapy since discharge from [facility] 02/23/2022 after hospitalization for CHF and COPD. Patient was doing well until day of presentation when she started to feel short of breath, worse on exertion, staff noticed to give me a and check pulse ox which was 77 on 4 L. EMS came and placed patient on non-rebreather. patient denies chest pain, fever, chills Review of Systems Review of Systems: Constitutional: Denies fever, denies Chills Eyes: denies blurry vision ENT: denies sore throat CVS: denies chest pain Respiratory: dyspnea GI: no abdominal pain : denies dysuria MSK: denies neck pain Skin: denies rash Neuro: denies specific motor weakness Psych: denies suicidal ideation Endocrine: denies heat/cold intolerance Hematologic: denies easy bleeding Allergy: denies hives [facility] Medical History Cardiac pacemaker in situ CHF (congestive heart failure) Chronic atrial fibrillation Chronic respiratory failure with hypoxia Congestive heart failure COPD (chronic obstructive pulmonary disease) Hypertension Family History Mother Liver cancer Surgical History H/O mitral valve replacement History of permanent cardiac pacemaker placement Hx of mitral valve repair Social History Household Members: None Housing: Condominium Do you presently have visiting nurse or other home services: Yes Alcohol intake: never Patient Tobacco Use Status: Former Tobacco user Second Hand Smoke Exposure: No Advance Directives: Yes Advance Directives on File: Yes Advance Directives Date on File: 01/05/21 service: No Current occupational status: retired Meds Allergies Allergy/AdvReac Type Severity Reaction Status Date / Time pine nut [PINE NUT] Allergy Unknown RASH Verified 02/11/22 13:09 Active Medications: Current Medications Diltiazem HCl (Diltiazem Hcl Cd 120 Mg Cap.Er.Deg) mg PO DAILY [facility]; Protocol Doxepin HCl (Doxepin Hcl 10 Mg Capsule) 10 mg PO BEDTIME PRN PRN Reason: Itching Fluticasone/Vilanterol (Fluticasone/Vilanterol 100/25 Blst.W.Dev) 1 puff INHALE DAILY [facility] Levothyroxine Sodium (Levothyroxine Sodium 88 Mcg Tablet) mcg PO DAILY [facility] Non-Formulary Medication (Terazosin) 1 mg PO BEDTIME LINNEA Omeprazole (Omeprazole 20 Mg Capsule.Dr) mg PO DAILY [facility] Pharmacy Consult (Consult Rx Perform Med Rec) 1 each MISCELLANE ONCE PRN PRN Reason: Consult order Potassium Chloride (Potassium Chloride Er 10 Meq Capsule.Er) meq PO DAILY [facility] Warfarin Sodium (Warfarin Sodium 5 Mg Tablet) 5 mg PO DAILY [facility] Zolpidem Tartrate (Zolpidem Tartrate 5 Mg Tablet) 5 mg PO BEDTIME PRN PRN Reason: Insomnia Home Medications Medication Instructions Recorded Confirmed Last Taken Type fluticasone furoate 100 1 puff PO DAILY 03/09/21 04/21/22 02/20/22 History mcg-vilanterol 25 mcg/dose inhalation powder (Breo Ellipta) diltiazem HCl 120 mg 120 mg PO DAILY 09/20/21 04/21/22 02/20/22 History capsule,extended release 24 hr furosemide 40 mg tablet 60 mg PO DAILY 09/20/21 04/21/22 02/20/22 History levothyroxine 88 mcg tablet 88 mcg PO DAILY 09/20/21 04/21/22 02/20/22 History omeprazole 20 mg capsule,delayed 20 mg PO DAILY 09/20/21 04/21/22 02/20/22 History release potassium chloride 10 mEq 10 meq PO DAILY 09/20/21 04/21/22 02/20/22 History tablet,extended release zolpidem 10 mg tablet 5 mg PO BEDTIME PRN Insomnia 12/18/21 04/21/22 Unknown History doxepin 10 mg capsule 10 mg PO BEDTIME PRN Itching 01/22/22 04/21/22 02/19/22 History warfarin 5 mg tablet 5 mg PO DAILY 02/20/22 04/21/22 02/18/22 History Physical Exam Vital Signs and Narrative: Vital Signs: Last Vital Signs Temp 98.1 F 04/21/22 12:23 Pulse 92 04/21/22 13:44 Resp 24 H 04/21/22 13:44 BP 106/51 L 04/21/22 13:44 Pulse Ox 97 04/21/22 13:44 O2 Del Method 04/21/22 13:44 O2 Flow Rate 5 04/21/22 13:44 Oxygen Flow Rate 9 04/21/22 12:23 BMI result Body Mass Index 41.1 General: dyspneic HEENT: atraumatic Neck: normal to visual inspection CVS: S1, S2, RRR Resp: diminshed at bases, crackles Chest: non tender GI: soft, non tender, non distended : no CVA tenderness Skin: no rashes Extremities: trace edema Neuro: Oriented X3, grossly intact Psych: cooperative Results Labs CBC and Chem 7: 04/21/22 13:39 04/21/22 13:39 Labs: Laboratory Results - last 24 hr 04/21/22 04/21/22 04/21/22 13:39 13:39 13:39 MCV 91.6 MCH 29.8 MCHC 32.5 RDW 15.6 Plt Count 168 MPV 12.6 H Immature Gran % (Auto) 0.6 H Neut % (Auto) 69.7 Lymph % (Auto) 13.7 L [place] % (Auto) 12.9 H Eos % (Auto) 2.4 Baso % (Auto) 0.7 Lymph # (Auto) 1.6 [place] # (Auto) 1.5 H Eos # (Auto) 0.3 Baso # (Auto) 0.1 Abs Immat Gran (auto) 0.07 H Absolute Neuts (auto) 8.1 Absolute Nucleated RBC 0.000 Nucleated RBC % (auto) 0.0 Smear Tech's Comments VERIFIED PT 19.6 H INR 1.7 H Anion Gap 20 Estim Creat Clear Calc 51.3 Estimated GFR 57 Random Glucose 103 Lactic Acid Calcium 8.6 D Total Bilirubin 1.0 Direct Bilirubin 0.4 AST 17 ALT 11 Alkaline Phosphatase 97 B-Natriuretic Peptide Total Protein 6.0 L Albumin 3.4 L Lipase 9 Influenza Type A (PCR) Influenza Type B (PCR) RSV RNA Qual (PCR) SARS-CoV-2 RNA (RT-PCR) 04/21/22 04/21/22 04/21/22 13:39 13:39 13:39 MCV MCH MCHC RDW Plt Count MPV Immature Gran % (Auto) Neut % (Auto) Lymph % (Auto) [place] % (Auto) Eos % (Auto) Baso % (Auto) Lymph # (Auto) [place] # (Auto) Eos # (Auto) Baso # (Auto) Abs Immat Gran (auto) Absolute Neuts (auto) Absolute Nucleated RBC Nucleated RBC % (auto) Smear Tech's Comments PT INR Anion Gap Estim Creat Clear Calc Estimated GFR Random Glucose Lactic Acid 1.6 Calcium Total Bilirubin Direct Bilirubin AST ALT Alkaline Phosphatase B-Natriuretic Peptide 195 H Total Protein Albumin Lipase Influenza Type A (PCR) NEGATIVE Influenza Type B (PCR) NEGATIVE RSV RNA Qual (PCR) NEGATIVE SARS-CoV-2 RNA (RT-PCR) NEGATIVE Assessment and Plan (1) Congestive heart failure: Qualifiers: Heart failure chronicity: acute on chronic Heart failure type: combined systolic and diastolic Qualified Code(s): I50.43 - Acute on chronic combined systolic (congestive) and diastolic (congestive) heart failure Status: Acute Plan 87F pmh hypoxic respiratory failure secondary to COPD on 2.5 L home oxygen, chronic atrial fibrillation on Coumadin, chronic diastolic CHF, chronic Nelson for urinary retention, hypertension, presented from long term for shortness of breath Acute on chronic hypoxic respiratory failure secondary to COPD with acute decompensation and acute on chronic diastolic CHF IV Solu-Medrol, DuoNebs IV Lasix, monitor electrolytes Wean oxygen as tolerated Chronic atrial fibrillation Diltiazem, Coumadin, monitor INR Morbid obesity Weight loss Hypertension Cardizem, terazosin Chronic urinary retention Chronic Nelson DNR/DNI Patient with significant hypoxia worsened her baseline requiring IV diuresis and steroids and close monitoring at risk for further decompensation due to comorbidities of chronic atrial fibrillation, frailty and advanced age, therefore expected to acquire least 2 midnights in the hospital Quality Stroke Does the patient have a stroke diagnosis?: No VTE Prior VTE?: No VTE Risk Level:: Medical - moderate - high VTE Device Contraindication: Treatment Not Indicated VTE Drug Contraindication: N/A - Med Ordered
--- NOTE | 2022-04-21 15:56 | PHA.MEDREC ---
Pharmacy Consult ? Medication Reconciliation Pharmacy has completed the medication reconciliation. Interviewed patient, however patient is poor historian of meds. Rivera (Nephew) at bedside and had med list, but was outdated. Called [facility] to get med list and they faxed. Utilized med list to verify meds.
[2022-04-21] MEDS: cefTRIAXone sodium 1 GM in 0.9 % Sodium Chloride 50 ML IV (16:19)
--- NOTE | 2022-04-21 17:54 | PC.NURSE ---
pt transitioned to nasal cannula by RT, tolerating 4L via nc well, spo2 96%. pt in nad at this time. wctm.
[2022-04-21] MEDS: Warfarin Sodium 5 MG TABLET PO (19:55)
[2022-04-21] MEDS: Zolpidem Tartrate 5 MG TABLET PO (20:11)
[2022-04-22] VITALS (13 sets, daily range): BP systolic 99–136; BP diastolic 39–56; PULSE 66–88; RESP 12–25; TEMP 36.1–36.8; O2SAT 94–99
[2022-04-22] MEDS: methylPREDNISolone Sod Succ 40 MG/ML VIAL IVPUSH ×2 (05:53→15:08)
[2022-04-22] MEDS: Omeprazole 20 MG CAPSULE.DR PO (05:53)
[2022-04-22] MEDS: Levothyroxine Sodium 88 MCG TABLET PO (05:53)
[2022-04-22 06:38] LABS: INTERNATIONAL NORM RATIO 1.9 (0.9-1.1); Prothrombin Time 22.4 SEC (10.0-13.1)
--- NOTE | 2022-04-22 06:41 | PC.NURSE ---
I assumed nursing care of Itzel at 2300. She has had an uneventful night. Since 2300 she has been sleeping, wakes to verbal stimuli at which time she is oriented to person, place and time. Respirations are non-labored, no cyanosis, she speaks in full sentences, room air sat's WNL. No chest pain. No nausea or vomiting. Speech celar and appropriate. SHe is taking PO food and fluids without difficulty. Itzel is aware that she is awaiitng inpatient bed assignment.
[2022-04-22 06:50] LABS: Hematocrit 31.8 % (37.0-47.0); Hemoglobin 10.2 g/dl (12.0-16.0); Mean Corpuscular HGB Conc 32.1 g/dl (31.0-35.0); Mean Corpuscular Hemoglobin 29.2 pg (27.0-33.0); Mean Corpuscular Volume 91.1 fL (80.0-98.0); Mean Platelet Volume 12.3 fL (9.4-12.3); Platelet Count 225 X10*3/uL (160-400); Red Blood Count 3.49 X10*6/uL (4.20-5.50); Red Cell Distribution Width 15.3 % (11.0-16.0); White Blood Count 9.2 X10*3/uL (4.8-10.8)
[2022-04-22 06:57] LABS: Anion Gap 17 (12-20); Blood Urea Nitrogen 27 mg/dL (9-16); Calcium 8.8 mg/dL (8.4-10.2); Carbon Dioxide 25 mmol/L (22-29); Chloride 103 mmol/L (96-108); Creatinine Clr Calc Pharmacy 45.5; Estimated Glomerular Filt Rate 50; Glucose Fasting 143 mg/dL (60-99); Magnesium 2.4 mg/dL (1.6-2.6); Potassium 4.6 mmol/L (3.3-5.1); Sodium 140 mmol/L (135-145)
[2022-04-22] MEDS: dilTIAZem HCL CD 120 MG CAP.ER.DEG PO (07:55)
[2022-04-22] MEDS: 0.9 % Sodium Chloride Flush 3 ML SYRINGE IVFLUSH ×2 (07:56→15:10)
[2022-04-22] MEDS: Furosemide 40 MG/4 ML VIAL IVPUSH ×2 (07:56→17:10)
--- NOTE | 2022-04-22 10:03 | P.PNIM_ITS ---
Subjective Subjective Date of Service: 04/22/22 Interval History: cc: sob interval history:a bit better, still sob Cardiovascular Cardiovascular: Reports no additional cardiovascular complaints Respiratory Respiratory: Reports no additional respiratory complaints Physical Exam Vital Signs: Vital Signs: Last Vital Signs Temp 98.9 F 04/21/22 19:52 Pulse 83 04/22/22 08:01 Resp 17 04/22/22 08:01 BP 117/53 L 04/22/22 08:01 Pulse Ox 95 04/22/22 08:01 O2 Del Method 04/22/22 08:01 O2 Flow Rate 4 04/22/22 08:01 Oxygen Flow Rate 9 04/21/22 12:23 BMI result Body Mass Index 41.1 General: AO X 3, sob Resp: diminished at base bilateral, mild accessory muscles used CVS: S1,S2,RRR GI: soft, non tender, non distended Neuro: motor grossly intact, alert Psych: appropriate affect, appropriate insight Objective Data Active Medications Albuterol/Ipratropium (Albuterol/Iprat 2.5/0.5mg 3 Ml Ampul.Neb) 3 ml INHALE RQ4H WHILE AWAKE [facility] Last Admin: 04/22/22 08:03 Dose: Not Given Documented By: ОЬЛГА Non-Admin Reason: Patient Refused Diltiazem HCl (Diltiazem Hcl Cd 120 Mg Cap.Er.Deg) 120 mg PO DAILY [facility]; Protocol Last Admin: 04/22/22 07:55 Dose: 120 mg Documented By: PETE Doxazosin Mesylate (Doxazosin Mesylate 1 Mg Tablet) 1 mg PO BEDTIME [facility] Last Admin: 04/22/22 01:33 Dose: Not Given Documented By: KAPIL Non-Admin Reason: Med Not Available Doxepin HCl (Doxepin Hcl 10 Mg Capsule) 10 mg PO BEDTIME PRN PRN Reason: Itching Fluticasone/Vilanterol (Fluticasone/Vilanterol 100/25 Blst.W.Dev) 1 puff INHALE RDAILY [facility] Last Admin: 04/22/22 08:03 Dose: Not Given Documented By: ОЛЬГА Non-Admin Reason: Med Not Available Furosemide (Furosemide 40 Mg/4 Ml Vial) 40 mg IVPUSH BID@0900,1800 [facility]; Protocol Last Admin: 04/22/22 07:56 Dose: 40 mg Documented By: PETE Levothyroxine Sodium (Levothyroxine Sodium 88 Mcg Tablet) 88 mcg PO DAILY@0600 [facility] Last Admin: 04/22/22 05:53 Dose: 88 mcg Documented By: KAPIL Methylprednisolone Sodium Succinate (Methylprednisolone Sod Succ 40 Mg/Ml Vial) 40 mg IVPUSH Q12H [facility] Last Admin: 04/22/22 05:53 Dose: 40 mg Documented By: KAPIL Omeprazole (Omeprazole 20 Mg Capsule.Dr) 20 mg PO DAILY@0630 [facility] Last Admin: 04/22/22 05:53 Dose: 20 mg Documented By: KAPIL Pharmacy Consult (Consult Rx Perform Med Rec) 1 each MISCELLANE ONCE PRN PRN Reason: Consult order Potassium Chloride (Potassium Chloride Er 10 Meq Capsule.Er) 10 meq PO DAILY [facility] Last Admin: 04/22/22 07:55 Dose: 10 meq Documented By: PETE Sodium Chloride (0.9 % Sodium Chloride Flush 3 Ml Syringe) 3 ml IVFLUSH QSHIFT [facility] Last Admin: 04/22/22 07:56 Dose: 3 ml Documented By: PETE Warfarin Sodium (Warfarin Sodium 5 Mg Tablet) 5 mg PO DAILY@1800 [facility] Last Admin: 04/21/22 19:55 Dose: 5 mg Documented By: SHU Zolpidem Tartrate (Zolpidem Tartrate 5 Mg Tablet) 5 mg PO BEDTIME PRN PRN Reason: Insomnia Last Admin: 04/21/22 20:11 Dose: 5 mg Documented By: SHU Labs CBC & Chem 7: 04/22/22 06:23 04/22/22 06:23 Labs: Laboratory Results - last 24 hr 04/21/22 04/21/22 04/21/22 13:39 13:39 13:39 MCV 91.6 MCH 29.8 MCHC 32.5 RDW 15.6 Plt Count 168 MPV 12.6 H Immature Gran % (Auto) 0.6 H Neut % (Auto) 69.7 Lymph % (Auto) 13.7 L [place] % (Auto) 12.9 H Eos % (Auto) 2.4 Baso % (Auto) 0.7 Lymph # (Auto) 1.6 [place] # (Auto) 1.5 H Eos # (Auto) 0.3 Baso # (Auto) 0.1 Abs Immat Gran (auto) 0.07 H Absolute Neuts (auto) 8.1 Absolute Nucleated RBC 0.000 Nucleated RBC % (auto) 0.0 Smear Tech's Comments VERIFIED PT 19.6 H INR 1.7 H Anion Gap 20 Estim Creat Clear Calc 51.3 Estimated GFR 57 Random Glucose 103 Fasting Glucose Lactic Acid Calcium 8.6 D Magnesium Total Bilirubin 1.0 Direct Bilirubin 0.4 AST 17 ALT 11 Alkaline Phosphatase 97 B-Natriuretic Peptide Total Protein 6.0 L Albumin 3.4 L Lipase 9 Influenza Type A (PCR) Influenza Type B (PCR) RSV RNA Qual (PCR) SARS-CoV-2 RNA (RT-PCR) 04/21/22 04/21/22 04/21/22 13:39 13:39 13:39 MCV MCH MCHC RDW Plt Count MPV Immature Gran % (Auto) Neut % (Auto) Lymph % (Auto) [place] % (Auto) Eos % (Auto) Baso % (Auto) Lymph # (Auto) [place] # (Auto) Eos # (Auto) Baso # (Auto) Abs Immat Gran (auto) Absolute Neuts (auto) Absolute Nucleated RBC Nucleated RBC % (auto) Smear Tech's Comments PT INR Anion Gap Estim Creat Clear Calc Estimated GFR Random Glucose Fasting Glucose Lactic Acid 1.6 Calcium Magnesium Total Bilirubin Direct Bilirubin AST ALT Alkaline Phosphatase B-Natriuretic Peptide 195 H Total Protein Albumin Lipase Influenza Type A (PCR) NEGATIVE Influenza Type B (PCR) NEGATIVE RSV RNA Qual (PCR) NEGATIVE SARS-CoV-2 RNA (RT-PCR) NEGATIVE 04/22/22 04/22/22 04/22/22 06:23 06:23 06:23 MCV 91.1 MCH 29.2 MCHC 32.1 RDW 15.3 Plt Count 225 D MPV 12.3 Immature Gran % (Auto) Neut % (Auto) Lymph % (Auto) [place] % (Auto) Eos % (Auto) Baso % (Auto) Lymph # (Auto) [place] # (Auto) Eos # (Auto) Baso # (Auto) Abs Immat Gran (auto) Absolute Neuts (auto) Absolute Nucleated RBC 0.000 Nucleated RBC % (auto) 0.0 Smear Tech's Comments PT 22.4 H INR 1.9 H Anion Gap 17 Estim Creat Clear Calc 45.5 Estimated GFR 50 Random Glucose Fasting Glucose 143 H Lactic Acid Calcium 8.8 Magnesium 2.4 Total Bilirubin Direct Bilirubin AST ALT Alkaline Phosphatase B-Natriuretic Peptide Total Protein Albumin Lipase Influenza Type A (PCR) Influenza Type B (PCR) RSV RNA Qual (PCR) SARS-CoV-2 RNA (RT-PCR) Microbiology Microbiology Results: Microbiology 04/21/22 13:39 Blood Culture - Preliminary Blood - Venous Prelim: GPC Gram Stain only Assessment and Plan (1) Acute exacerbation of chronic obstructive airways disease: Status: Acute Plan 87F pmh hypoxic respiratory failure secondary to COPD on 2.5 L home oxygen, chronic atrial fibrillation on Coumadin, chronic diastolic CHF, chronic Nelson for urinary retention, hypertension, [facility] from [facility] for [facility] of breath Acute on chronic hypoxic respiratory failure secondary to COPD with acute decompensation and acute on chronic diastolic CHF some improvement continue IV Solu-Medrol, DuoNebs IV Lasix, monitor electrolytes Wean oxygen as tolerated 1/2 gpc in blood likely contaminant, follow for now Chronic atrial fibrillation Diltiazem, Coumadin, monitor INR Morbid obesity Weight loss Hypertension Cardizem, terazosin Chronic urinary retention Chronic Nelson DNR/DNI reason for continued hospitalization:ongoing iv diuresis, still sob Quality Stroke Does the patient have a stroke diagnosis?: No VTE Prior VTE?: No VTE Risk Level:: Medical - moderate - high VTE Device Contraindication: Treatment Not Indicated VTE Drug Contraindication: N/A - Med Ordered
[2022-04-22] MEDS: Albuterol/Iprat 2.5/0.5MG 3 ML AMPUL.NEB INHALE ×3 (11:31→19:18)
[2022-04-22] MEDS: Warfarin Sodium 5 MG TABLET PO (17:11)
--- NOTE | 2022-04-22 19:55 | PC.NURSE ---
patient a&ox3, given dinner, satellite project site monitor intact paced 80s, 3L O2 nc, vss, pure wick patient/draining,lll fine crackles, call maher within reach, will continue to monitor
[2022-04-22] MEDS: Zolpidem Tartrate 5 MG TABLET PO (21:28)
--- NOTE | 2022-04-22 21:32 | PC.NURSE ---
Pt. rang for nurse, requesting her nighttime ambien. She declined the cardura. Medicated with ambien per MAR and tucked pt. into bed. Pt. resting quietly
[2022-04-23] VITALS (10 sets, daily range): BP systolic 121–159; BP diastolic 56–77; PULSE 60–94; RESP 14–22; TEMP 36.1–36.8; O2SAT 3–96; BMI 40.8
--- NOTE | 2022-04-23 00:14 | PC.NURSE ---
Called [facility] to give report on pt. RN was in a room and will call back.
--- NOTE | 2022-04-23 01:27 | PC.NURSE ---
Pt. sleeping in room. Awaiting transport to [facility].
[2022-04-23] MEDS: methylPREDNISolone Sod Succ 40 MG/ML VIAL IVPUSH ×2 (02:19→16:29)
[2022-04-23 06:21] LABS: Hematocrit 32.7 % (37.0-47.0); Hemoglobin 10.5 g/dl (12.0-16.0); Mean Corpuscular HGB Conc 32.1 g/dl (31.0-35.0); Mean Corpuscular Hemoglobin 29.2 pg (27.0-33.0); Mean Corpuscular Volume 90.8 fL (80.0-98.0); Mean Platelet Volume 12.2 fL (9.4-12.3); Platelet Count 243 X10*3/uL (160-400); Red Cell Distribution Width 15.4 % (11.0-16.0); White Blood Count 19.1 X10*3/uL (4.8-10.8)
[2022-04-23 06:36] LABS: INTERNATIONAL NORM RATIO 2.5 (0.9-1.1)
[2022-04-23] MEDS: Levothyroxine Sodium 88 MCG TABLET PO (06:41)
[2022-04-23] MEDS: Omeprazole 20 MG CAPSULE.DR PO (06:41)
[2022-04-23 06:53] LABS: Anion Gap 17 (12-20); Blood Urea Nitrogen 31 mg/dL (9-16); Calcium 9.2 mg/dL (8.4-10.2); Carbon Dioxide 27 mmol/L (22-29); Chloride 101 mmol/L (96-108); Creatinine Clr Calc Pharmacy 51.7; Estimated Glomerular Filt Rate 58; Glucose Fasting 123 mg/dL (60-99); Potassium 4.9 mmol/L (3.3-5.1); Sodium 140 mmol/L (135-145)
[2022-04-23] MEDS: Albuterol/Iprat 2.5/0.5MG 3 ML AMPUL.NEB INHALE ×4 (07:35→20:38)
--- NOTE | 2022-04-23 08:43 | MHC.CM.PN ---
ot from [facility] she was set to dc 04/25 son was planning on pt returning home with care tenders and private help pt travis de la cruz dc plan tbd by hospital course home with services vs return to str
[2022-04-23] MEDS: dilTIAZem HCL CD 120 MG CAP.ER.DEG PO (09:34)
[2022-04-23] MEDS: 0.9 % Sodium Chloride Flush 3 ML SYRINGE IVFLUSH ×3 (09:34→20:39)
[2022-04-23] MEDS: Furosemide 40 MG/4 ML VIAL IVPUSH (09:36)
[2022-04-23] MEDS: Fluticasone/Vilanterol 100/25 BLST.W.DEV 1 PUFF INHALE (09:37)
--- NOTE | 2022-04-23 10:44 | P.PNIM_ITS ---
Subjective Subjective Date of Service: 04/23/22 Interval History: cc: sob interval history:much improved, still wtih sob and weakness, productive cough Cardiovascular Cardiovascular: Reports no additional cardiovascular complaints Respiratory Respiratory: Reports no additional respiratory complaints Physical Exam Vital Signs: Vital Signs: Last Vital Signs Temp 97.1 F 04/23/22 07:37 Pulse 79 04/23/22 07:37 Resp 20 04/23/22 07:37 BP 124/63 04/23/22 07:37 Pulse Ox 96 04/23/22 07:37 O2 Del Method 04/23/22 07:37 O2 Flow Rate 3 04/23/22 07:37 Oxygen Flow Rate 9 04/21/22 12:23 BMI result Body Mass Index 40.8 General: AO X 3, no acute distress Resp: diminished at base bilateral, mild accessory muscles used CVS: S1,S2,RRR GI: soft, non tender, non distended Neuro: motor grossly intact, alert Psych: appropriate affect, appropriate insight Objective Data Active Medications Albuterol/Ipratropium (Albuterol/Iprat 2.5/0.5mg 3 Ml Ampul.Neb) 3 ml INHALE RQ4H WHILE AWAKE [facility] Last Admin: 04/23/22 07:35 Dose: 3 ml Documented By: ОЛЬГА Diltiazem HCl (Diltiazem Hcl Cd 120 Mg Cap.Er.Deg) 120 mg PO DAILY [facility]; Protocol Last Admin: 04/23/22 09:34 Dose: 120 mg Documented By: CANDICE Doxazosin Mesylate (Doxazosin Mesylate 1 Mg Tablet) 1 mg PO BEDTIME [facility] Last Admin: 04/22/22 21:32 Dose: Not Given Documented By: BELEM Non-Admin Reason: Patient Refused Doxepin HCl (Doxepin Hcl 10 Mg Capsule) 10 mg PO BEDTIME PRN PRN Reason: Itching Fluticasone/Vilanterol (Fluticasone/Vilanterol 100/25 Blst.W.Dev) 1 puff INHALE RDAILY [facility] Last Admin: 04/23/22 09:37 Dose: 1 puff Documented By: CANDICE Furosemide (Furosemide 20 Mg Tablet) 20 mg PO DAILY [facility]; Protocol Levothyroxine Sodium (Levothyroxine Sodium 88 Mcg Tablet) 88 mcg PO DAILY@0600 [facility] Last Admin: 04/23/22 06:41 Dose: 88 mcg Documented By: NENA Methylprednisolone Sodium Succinate (Methylprednisolone Sod Succ 40 Mg/Ml Vial) 40 mg IVPUSH Q12H [facility] Last Admin: 04/23/22 02:19 Dose: 40 mg Documented By: NENA Omeprazole (Omeprazole 20 Mg Capsule.Dr) 20 mg PO DAILY@0630 [facility] Last Admin: 04/23/22 06:41 Dose: 20 mg Documented By: NENA Pharmacy Consult (Consult Rx Perform Med Rec) 1 each MISCELLANE ONCE PRN PRN Reason: Consult order Potassium Chloride (Potassium Chloride Er 10 Meq Capsule.Er) 10 meq PO DAILY [facility] Last Admin: 04/23/22 09:36 Dose: 10 meq Documented By: CANDICE Sodium Chloride (0.9 % Sodium Chloride Flush 3 Ml Syringe) 3 ml IVFLUSH QSHIFT [facility] Last Admin: 04/23/22 09:34 Dose: 3 ml Documented By: CANDICE Warfarin Sodium (Warfarin Sodium 5 Mg Tablet) 5 mg PO DAILY@1800 [facility] Last Admin: 04/22/22 17:11 Dose: 5 mg Documented By: PETE Zolpidem Tartrate (Zolpidem Tartrate 5 Mg Tablet) 5 mg PO BEDTIME PRN PRN Reason: Insomnia Last Admin: 04/22/22 21:28 Dose: 5 mg Documented By: BELEM Labs CBC & Chem 7: 04/23/22 05:54 04/23/22 05:54 Labs: Laboratory Results - last 24 hr 04/23/22 04/23/22 04/23/22 05:54 05:54 05:54 MCV 90.8 MCH 29.2 MCHC 32.1 RDW 15.4 Plt Count 243 MPV 12.2 Absolute Nucleated RBC 0.000 Nucleated RBC % (auto) 0.0 PT 30.0 H INR 2.5 H Anion Gap 17 Estim Creat Clear Calc 51.7 Estimated GFR 58 Fasting Glucose 123 H Calcium 9.2 Microbiology Microbiology Results: Microbiology 04/21/22 13:39 Blood Culture - Preliminary Blood - Venous No growth after 24 hours. 04/21/22 13:39 Blood Culture - Preliminary Blood - Venous Prelim: GPC Gram Stain only Assessment and Plan (1) Acute exacerbation of chronic obstructive airways disease: Status: Acute Plan 87F pmh hypoxic respiratory failure secondary to COPD on 2.5 L home oxygen, chronic atrial fibrillation on Coumadin, chronic diastolic CHF, chronic Nelson f or urinary retention, hypertension, presented from assisted for shortness of breath Acute on chronic hypoxic respiratory failure secondary to COPD with acute decompensation and acute on chronic diastolic CHF continues to improve continue IV Solu-Medrol, DuoNebs diuresed well will change to po lasix 20mg daily (was on 10mg at [place]), monitor electrolytes Wean oxygen as tolerated due to leukocytosis, questionable opacity on imaging and increased sputum will add antibiotic coverage for possible pneumonia 1/2 gpc in blood likely contaminant, will not add MRSA coverage for now, follow up final Chronic atrial fibrillation Diltiazem, Coumadin, monitor INR Morbid obesity Weight loss Hypertension Cardizem, terazosin Chronic urinary retention Chronic Nelson DNR/DNI reason for continued hospitalization: still sob, needing iv steroids, nebs dispo: likely back to SNF when medically cleared Quality Stroke Does the patient have a stroke diagnosis?: No VTE Prior VTE?: No VTE Risk Level:: Medical - moderate - high VTE Device Contraindication: Treatment Not Indicated VTE Drug Contraindication: N/A - Med Ordered
[2022-04-23] MEDS: Azithromycin 500 MG TABLET PO (12:03)
[2022-04-23] MEDS: cefTRIAXone sodium 1 GM in 0.9 % Sodium Chloride 50 ML IV (12:03)
[2022-04-23] MEDS: Warfarin Sodium 5 MG TABLET PO (17:47)
[2022-04-23] MEDS: Zolpidem Tartrate 5 MG TABLET PO (20:30)
[2022-04-23] MEDS: Doxazosin Mesylate 1 MG TABLET PO (20:30)
[2022-04-24] MEDS: methylPREDNISolone Sod Succ 40 MG/ML VIAL IVPUSH ×2 (01:44→13:48)
[2022-04-24 03:06] VITALS: BP 131/60; PULSE 66; RESP 16; TEMP 36.6; O2SAT 95
[2022-04-24] MEDS: Omeprazole 20 MG CAPSULE.DR PO (06:20)
[2022-04-24] MEDS: Levothyroxine Sodium 88 MCG TABLET PO (06:21)
[2022-04-24 07:08] LABS: INTERNATIONAL NORM RATIO 2.9 (0.9-1.1); Prothrombin Time 34.2 SEC (10.0-13.1)
[2022-04-24 07:27] VITALS: BP 141/69; PULSE 69; RESP 16; TEMP 36.3; O2SAT 94
[2022-04-24] MEDS: Albuterol/Iprat 2.5/0.5MG 3 ML AMPUL.NEB INHALE ×2 (07:44→11:16)
[2022-04-24 07:45] VITALS: PULSE 87; RESP 20; O2SAT 95
[2022-04-24] MEDS: Azithromycin 500 MG TABLET PO (10:11)
[2022-04-24] MEDS: dilTIAZem HCL CD 120 MG CAP.ER.DEG PO (10:11)
[2022-04-24] MEDS: Furosemide 20 MG TABLET PO (10:11)
[2022-04-24] MEDS: 0.9 % Sodium Chloride Flush 3 ML SYRINGE IVFLUSH (10:12)
--- NOTE | 2022-04-24 10:38 | MHC.CLN ---
F/U PT WITH INCREASED NUTRITION NEEDS R/T PRESSURE INJURY DIET RX: CARDIAC-APPROPRIATE PT RECEIVING ENSURE BID TO PROVIDE INCREASE KCALS AND PROMOTE WOUND HEALIG SUPP TO PROVIDE 700KCALS, 40G PROTEIN MONITOR PO INTAKE CLOSELY
[2022-04-24] MEDS: cefTRIAXone sodium 1 GM in 0.9 % Sodium Chloride 50 ML IV (11:11)
[2022-04-24 11:18] VITALS: PULSE 88; RESP 20; O2SAT 94
[2022-04-24 11:32] VITALS: BP 120/58; PULSE 68; RESP 18; TEMP 36.3; O2SAT 95
--- NOTE | 2022-04-24 11:42 | MHC.CM.PN ---
Per MD, Patient will be medically cleared for dc to home today, with services. [facility] of today's [facility]. Last IMM addressed 04/22/21.
--- NOTE | 2022-04-24 11:45 | MHC.CM.PN ---
VELIA returned a call to Patient's Nephew/Rivera, who will be picking up Patient today at 1PM(RN & MD are aware). Rivera has indicated that Patient has private pay services through [employer], as well as the new referral to [facility].
--- NOTE | 2022-04-24 12:13 | W.MHC.F2F ---
Service Date Service Date: 04/24/22 Encounter Date of encounter: 04/24/22 Reasons for Services Signs and symptoms assessed: Physical deconditioning Reason for physical therapy: home safety and mobility and therapeutic exercises Homebound: Leaving the home is medically contraindicated at this time without the asist of a device and/or another person due th the listed conditions above and below. Reason homebound: unsteady gait / fall risk Certification: Based on the above findings, I certify that this patient is confined to the home and needs intermittent nursing home care, physical therapy and/or speech therapy, or continues to need occupational therapy. The patient is under my care, and I have initiated the establishment of the plan of care. The patient will be followed by a physician who will periodically review the plan of care.
--- NOTE | 2022-04-24 12:14 | P.DS_ITS ---
DS: Providers Provider Date of Service: 04/24/22 Date of admission: 04/21/22 15:04 Primary care physician: Kaiser Garland DO DS: Diagnosis Discharge Diagnosis (1) Acute exacerbation of chronic obstructive airways disease: Status: Acute (2) On Coumadin for atrial fibrillation: Status: Acute (3) Congestive heart failure: Status: Acute (4) Chronic respiratory failure with hypoxia: Status: Acute DS: Summary Hospital Course Hospital Course: Admission note HPI 87F pmh hypoxic respiratory failure secondary to COPD on 2.5 L home oxygen, chronic atrial fibrillation on Coumadin, chronic diastolic CHF, chronic Nelson for urinary retention, hypertension, presented from skilled nursing for shortness of breath.? Patient has been at [facility] for physical therapy since discharge from [facility] 02/23/2022 after hospitalization for CHF and COPD.? Patient was doing well until day of presentation when she started to feel short of breath, worse on exertion, staff noticed to give me a and check pulse ox which was 77 on 4 L.? EMS came and placed patient on non-rebreather. patient denies chest pain, fever, chills. Hospital course The patient was admitted for evaluation of acute on chronic hypoxic respiratory failure due to COPD and diastolic CHF exacerbations. Treated with IV Lasix, steroids and bronchodilator nebulizers with good response over the course of hospital stay as the patient was weaned down to her baseline oxygen level of 3 L. home dose Lasix increased to 20 mg at time of discharge along with prednisone and rescue inhaler. Patient received antibiotics of ceftriaxone azithromycin during the hospital stay for concern over opacity on the imaging. To finish total of 5 days of antibiotic at home. One bottle of blood culture grew coag-negative staph. Contamination. Increase Lasix to 20 mg daily Continue prednisone as prescribed continue antibiotics as prescribed Use rescue inhaler as needed for shortness of breath Time Spent with Patient Time attestation: Total time spent providing and/or coordinating discharge services: Discharge coordination time: Greater than 30 minutes Quality: Safe Use of Opioids Does Pt have an Active Cancer Diagnosis on the Problem List?: No Quality: Stroke Does the patient have a stroke diagnosis?: No Physical Exam Vital Signs: Vital Signs: Last Vital Signs Temp 97.4 F 04/24/22 11:32 Pulse 68 04/24/22 11:32 Resp 18 04/24/22 11:32 BP 120/58 L 04/24/22 11:32 Pulse Ox 95 04/24/22 11:32 O2 Del Method 04/24/22 11:32 O2 Flow Rate 3 04/24/22 11:32 Oxygen Flow Rate 9 04/21/22 12:23 BMI result Body Mass Index 40.8 Const: Other: Constitutional : Alert, oriented, not in distress Neck : Normal inspection, Supple Cardiovascular : RRR, no JVP, no lower extremity edema Respiratory : fair bilateral air entry, no crackles, wheezes or rhonchi Gastrointestinal: soft, lax, Normal bowel sounds, Non tender Skin : Warm, Dry Neurological : Alert & oriented x3, No focal deficit , CN 2-12 within normal DS: Data Data Completed and Pending Completed studies during hospitalization [Text1]: Procedures Assistance with Respiratory Ventilation, Less than 24 Consecutive Hours, Continuous Positive Airway Pressure (05/18/20) Labs on day of discharge: Laboratory Results - last 24 hr 04/24/22 06:51 PT 34.2 H INR 2.9 H Preliminary micro results at discharge 04/21/22 13:39 Blood Culture - Preliminary Blood - Venous No growth after 48 hours. Discharge Plan Discharge Patient Disposition: Home Health Service Discharge Diagnosis: COPD exacerbation Diastolic heart failure exacerbation Referrals: Kaiser Garland DO [Primary Care Provider] - 1 Week Discharge Medications: New azithromycin 500 mg Tablet 500 mg PO DAILY 2 Days Qty: 2 0RF cefuroxime axetil 500 mg tablet 500 mg PO BID Qty: 6 0RF prednisone 20 mg tablet 40 mg PO DAILY Qty: 6 0RF albuterol sulfate 90 mcg/actuation HFA aerosol inhaler 2 puff inhalation Q6H PRN (Reason: shortness of breath or wheezing) Qty: 6.7 1RF Continued fluticasone furoate-vilanterol [Breo Ellipta] 100-25 mcg/dose blister with device 1 puff PO DAILY levothyroxine 88 mcg tablet 88 mcg PO DAILY omeprazole 20 mg capsule,delayed release(DR/EC) 20 mg PO DAILY@0630 potassium chloride 10 mEq tablet extended release 10 meq PO DAILY sennosides [senna] 8.6 mg Tablet 8.6 mg PO BEDTIME acetaminophen 325 mg Tablet 650 mg PO Q6H PRN (Reason: pain,fever) Rx Instructions: not to exceed 3 g/day ammonium lactate 12 % Lotion 1 appl TOPICAL BID magnesium hydroxide [Milk of Magnesia] 400 mg/5 mL Suspension 30 ml PO DAILY PRN (Reason: Constipation) Rx Instructions: for no BM in 3 days bisacodyl 10 mg Suppository 10 mg HI DAILY PRN (Reason: Constipation) Rx Instructions: if milk of magnesia not effective Fleet Enema 19-7 gram/118 mL Enema 118 ml HI DAILY PRN (Reason: Constipation) Rx Instructions: when Dulcolax suppository not effective docusate sodium 100 mg Capsule 100 mg PO BID zolpidem 5 mg tablet 1 tab PO BEDTIME zolpidem 5 mg tablet 1 tab PO BEDTIME PRN (Reason: Insomnia) polyethylene glycol 3350 [Miralax] 17 gram/dose Powder 17 g PO DAILY Rx Instructions: mix with 8 oz fluid warfarin 5 mg tablet 5 mg PO DAILY Rx Instructions: FROM 04/19-04/22 FOR INR 1.25 ON 04/19 diltiazem HCl 120 mg capsule,extended release 24hr 120 mg PO DAILY doxepin 10 mg capsule 10 mg PO BEDTIME PRN (Reason: Itching) terazosin 1 mg capsule 1 mg PO BEDTIME 30 Days Qty: 30 1RF Changed furosemide 20 mg Tablet 20 mg PO QAM Qty: 30 0RF Rx Instructions: 04/15/22 - 04/22/22 Discharge Orders: Discharge Order (Routine); Ordered 04/24/22 Ordered By: Tommie Gilliland Diet: Low salt diet Activity on Discharge: As tolerated Stand Alone Forms: Patient Portal Discharge page Care Plan Goals: Read below Health Concerns: Read below Plan of Treatment: Read below Assessment: You were admitted to the hospital for evaluation of difficulty breathing. Found to be in heart failure with evidence of COPD exacerbation. Responded well to treatment with Lasix, steroids and nebulizers. Increase Lasix to 20 mg daily Continue prednisone as prescribed continue antibiotics as prescribed Use rescue inhaler as needed for shortness of breath
== END 2022-04-24 14:40 | disposition home health service (06) | DRG 190 ==
LOC: HO.ED 15:07 → HO.EDOVER 15:21 → HO.IMC 04-22 22:04
PROVIDERS: Admitting Provider Internal Medicine; Emergency Provider Emergency Medicine; PCP Family Medicine; Visit Provider Student in an Organized Health Care Education/Training Program
DX: J44.1 Chronic obstructive pulmonary disease with (acute) exacerbation (principal); I50.33 Acute on chronic diastolic (congestive) heart failure; J96.21 Acute and chronic respiratory failure with hypoxia; Z68.41 Body mass index [BMI] 40.0-44.9, adult; I48.20 Chronic atrial fibrillation, unspecified; Z66 Do not resuscitate; I11.0 Hypertensive heart disease with heart failure; Z20.822 Contact with and (suspected) exposure to COVID-19; Z99.81 Dependence on supplemental oxygen; R33.9 Retention of urine, unspecified; E66.01 Morbid (severe) obesity due to excess calories; Z96.0 Presence of urogenital implants; Z95.0 Presence of cardiac pacemaker; Z95.2 Presence of prosthetic heart valve; Z87.891 Personal history of nicotine dependence; Z79.01 Long term (current) use of anticoagulants; Z79.51 Long term (current) use of inhaled steroids; Z79.890 Hormone replacement therapy; Z79.899 Other long term (current) drug therapy
CPT/HCPCS: 0241U; 36415; 71045; 80048; 80076; 83605; 83690; 83735; 83880; 84484; 85025; 85027; 85610; 87040; 87147; 87205; 93005; 94640; 96365; 96375; 99285; J0456; J0696; J1940; J2920; J2930

== ENCOUNTER 2022-04-30 14:44 | Emergency (ER) | payer MEDICARE, OTHER, SELFPAY ==
--- NOTE | ~2022-04-30 | CT_ITS ---
EXAMINATION: CT ABDOMEN AND PELVIS WITHOUT CONTRAST CLINICAL INFORMATION: Abdominal pain COMPARISON: 08/27/2019 TECHNIQUE: Multidetector volumetric imaging was performed from the superior aspect of the liver through the pubic symphysis. Sagittal and coronal reformatted images were obtained on the technologist's workstation. This CT examination was performed using dose optimization techniques as appropriate, variously including the following: *Automated exposure control *Adjustment of mA and/or kV according to patient size (this includes techniques or standardized protocols for targeted exams where dose is matched to indication/reason for exam; i.e. extremities or head) *Use of iterative reconstruction technique DLP: 789 mGy-cm FINDINGS: LUNG BASES: Small right and trace left pleural effusions with accompanying atelectasis. Moderate cardiomegaly. Mitral valve placement. LIVER, GALLBLADDER, AND BILIARY TREE: The liver is normal in size, shape, and attenuation. No focal hepatic lesion or biliary ductal dilatation is present. Cholecystectomy. PANCREAS: Unremarkable. SPLEEN: Unremarkable. ADRENAL GLANDS: Stable 1.5 cm low-density nodule in left adrenal gland measures 6 Hounsfield units compatible with a lipid rich adenoma. Right adrenal gland is normal. KIDNEYS AND URETERS: No hydronephrosis. Stable scarring of the lateral interpolar cortex of the right kidney with associated dystrophic calcification. Benign bilateral renal cysts do not require follow-up. No urinary calculi. Ureters normal in course and caliber. BLADDER: Large amount of nondependent gas within the bladder. No bladder wall thickening or perivesicular fat stranding. GASTROINTESTINAL TRACT: Pancolonic diverticulosis, most extensive within the sigmoid colon. No evidence of diverticulitis. There is possible wall thickening of the mid sigmoid colon though this is poorly assessed due to underdistention. Appearance is similar to prior. Normal appendix. Stomach and small bowel unremarkable. ABDOMINAL WALL: No significant hernia is appreciated. LYMPH NODES: Normal. VASCULAR: Aorta is atherosclerotic. No aneurysm. PELVIC VISCERA: Possible uterine fibroid, unchanged. No adnexal abnormalities. OSSEOUS STRUCTURES: No acute or suspicious osseous abnormalities. Degenerative changes present throughout the spine. Moderate bilateral hip arthrosis. CT/CT abdomen pelvis wo IV con IMPRESSION: * No definite acute findings to explain the patient's symptomatology. * Pancolonic diverticulosis, most extensive within the sigmoid colon which shows evidence of chronic diverticular disease as suggested by homogeneous wall thickening within the midportion, the appearance of which is stable from the prior exam. Recommend colonoscopy if not early performed to exclude underlying mass. * There is gas within the nondependent bladder as was present on the prior examination. Has the patient recently been catheterized. No evidence of cystitis otherwise. Please correlate with urinalysis. * Cholecystectomy. * Stable benign left adrenal adenoma. * Small right and trace left pleural effusions with accompanying atelectasis.
[2022-04-30 14:50] VITALS: BP 133/58; PULSE 96; RESP 18; TEMP 37.2; O2SAT 96; BMI 30.8
[2022-04-30 16:09] LABS: MANUAL DIFF FLAG NO
[2022-04-30 16:11] LABS: Basophils Percent Auto 0.1 % (0-2); Eosinophils Absolute Auto 0.1 X10*3/uL (0.0-0.4); Eosinophils Percent Auto 0.8 % (0-4); Hematocrit 34.8 % (37.0-47.0); Hemoglobin 11.3 g/dl (12.0-16.0); Imm Gran Abs Auto 0.13 X10*3/uL (0.00-0.03); Imm Gran Pct Auto 0.9 % (0.0-0.4); Lymphocytes Absolute Auto 1.1 X10*3/uL (1.2-4.9); Lymphocytes Percent Auto 7.6 % (20-40); Mean Corpuscular HGB Conc 32.5 g/dl (31.0-35.0); Mean Corpuscular Volume 89.5 fL (80.0-98.0); Monocytes Absolute Auto 1.5 X10*3/uL (0.1-1.2); Monocytes Percent Auto 10.5 % (2-11); Neutrophils Absolute Auto 11.3 x10*3/uL (2.0-8.3); Neutrophils Percent Auto 80.1 % (45-73); Platelet Count 267 X10*3/uL (160-400); Red Blood Count 3.89 X10*6/uL (4.20-5.50); Red Cell Distribution Width 15.7 % (11.0-16.0); White Blood Count 14.1 X10*3/uL (4.8-10.8)
[2022-04-30 16:26] LABS: Anion Gap 17 (12-20); Blood Urea Nitrogen 26 mg/dL (9-16); Calcium 9.3 mg/dL (8.4-10.2); Carbon Dioxide 28 mmol/L (22-29); Chloride 101 mmol/L (96-108); Creatinine Clr Calc Pharmacy 66.6; Estimated Glomerular Filt Rate > 60; Glucose Random 107 mg/dL (60-115); Potassium 4.1 mmol/L (3.3-5.1); Sodium 142 mmol/L (135-145)
[2022-04-30 20:26] VITALS: BP 157/85; PULSE 65; RESP 18; TEMP 37; O2SAT 99
--- NOTE | 2022-04-30 22:45 | ED.GENADULT ---
HPI - General Adult General Chief complaint: General Medical Stated complaint: high blood cell count sent from dispatch health Time Seen by Provider: 04/30/22 22:39 Source: patient, family and EMS Mode of arrival: EMS Limitations: no limitations History of Present Illness HPI narrative: 87-year-old female presents via EMS for evaluation of elevated white blood cell count. She was treated for UTI and finished antibiotics on Friday, and describes some abdominal pain. Patient is accompanied by her nephew, who is her primary broom stitcher. Onset (ago): day(s) Location: abdomen Radiation: non-radiation Severity: mild Severity scale (1-10): 4 Quality: aching Pain Consistency: constant Relieving factors: none Associated symptoms: denies other symptoms Treatments prior to arrival: other (Antibiotics) Related Data Home Medications Medication Instructions Recorded Confirmed fluticasone furoate 100 1 puff PO DAILY 03/09/21 04/21/22 mcg-vilanterol 25 mcg/dose inhalation powder (Breo Ellipta) diltiazem HCl 120 mg 120 mg PO DAILY 09/20/21 04/21/22 capsule,extended release 24 hr levothyroxine 88 mcg tablet 88 mcg PO DAILY 09/20/21 04/21/22 omeprazole 20 mg capsule,delayed 20 mg PO DAILY@0630 09/20/21 04/21/22 release potassium chloride 10 mEq 10 meq PO DAILY 09/20/21 04/21/22 tablet,extended release doxepin 10 mg capsule 10 mg PO BEDTIME PRN Itching 01/22/22 04/21/22 warfarin 5 mg tablet 5 mg PO DAILY 02/20/22 04/30/22 acetaminophen 325 mg tablet 650 mg PO Q6H PRN pain,fever 04/21/22 04/21/22 ammonium lactate 12 % lotion 1 appl topical BID 04/21/22 04/21/22 bisacodyl 10 mg rectal suppository 10 mg IL DAILY PRN Constipation 04/21/22 04/21/22 docusate sodium 100 mg capsule 100 mg PO BID 04/21/22 04/21/22 magnesium hydroxide 400 mg/5 mL 30 ml PO DAILY PRN Constipation 04/21/22 04/21/22 oral suspension (Milk of Magnesia) polyethylene glycol 3350 17 17 g PO DAILY 04/21/22 04/21/22 gram/dose oral powder (Miralax) sennosides 8.6 mg tablet (senna) 8.6 mg PO BEDTIME 04/21/22 04/21/22 sodium phosphates 19 gram-7 118 ml IL DAILY PRN Constipation 04/21/22 04/21/22 gram/118 mL enema (Fleet Enema) zolpidem 5 mg tablet 1 tab PO BEDTIME 04/21/22 04/21/22 zolpidem 5 mg tablet 1 tab PO BEDTIME PRN Insomnia 04/21/22 04/21/22 Previous Rx's Medication Instructions Recorded terazosin 1 mg capsule 1 mg PO BEDTIME 30 days #30 caps 01/22/22 albuterol sulfate 90 mcg/actuation 2 puff inhalation Q6H PRN 04/24/22 aerosol inhaler shortness of breath or wheezing #6.7 grams cefuroxime axetil 500 mg tablet 500 mg PO BID #6 tabs 04/24/22 furosemide 20 mg tablet 20 mg PO QAM #30 tabs 04/24/22 fluconazole 150 mg tablet 150 mg PO Q3D 2 doses #2 tabs 05/01/22 (Diflucan) levofloxacin 750 mg tablet 750 mg PO Q24H #6 tabs 05/01/22 Allergies Allergy/AdvReac Type Severity Reaction Status Date / Time pine nut [PINE NUT] Allergy Unknown RASH Verified 04/30/22 10:33 Review of Systems Review of Systems: Constitutional: No Fever, No Chills ENT/Mouth: No Ear Pain, No Hoarseness, No sore throat Eyes: No Eye Pain, No Swelling, No Redness, No Foreign Body Cardiovascular: No Chest Pain, No SOB Respiratory: No Cough, No Dyspnea Gastrointestinal: No Nausea, No Vomiting, No Diarrhea, positive abdominal Pain Genitourinary: No Dysuria, No Hematuria Musculoskeletal: No joint pain, No Myalgias, No Joint Swelling Skin: No Skin lacerations, No rash Neuro: No Weakness, No Numbness, No Paresthesias, No Loss of Consciousness, No Dizziness, No Headache Psych: No Anxiety/Panic, No Depression Heme/Lymph: no easy bruising, no Lymphadenopathy Endocrine: No Polyuria, No Polydipsia Yes all other systems are reviewed and are negative PMFSH Past Medical History Attestation statement: The following information was validated with the patient. Source: old records reviewed Medical History Cardiac pacemaker in situ CHF (congestive heart failure) Chronic atrial fibrillation Chronic respiratory failure with hypoxia Congestive heart failure COPD (chronic obstructive pulmonary disease) Hypertension Surgical History H/O mitral valve replacement History of permanent cardiac pacemaker placement Hx of mitral valve repair Family History Family History Mother Liver cancer Social History Social History Household Members: None Housing: Condominium Do you presently have visiting nurse or other home services: No Alcohol intake: never Patient Tobacco Use Status: Former Tobacco user Second Hand Smoke Exposure: No Advance Directives: Yes Advance Directives on File: Yes Advance Directives Date on File: 01/05/21 service: No Current occupational status: retired Physical Exam ED Vital Signs: Vital Signs - 24 hr 04/30/22 14:50 04/30/22 20:26 04/30/22 23:26 Temperature 98.9 F 98.6 F 98.0 F Pulse Rate 96 65 66 Respiratory Rate 18 18 17 Blood Pressure 133/58 L 157/85 H 146/50 H Pulse Oximetry 96 99 100 Oxygen Delivery Method Nasal Cannula Nasal Cannula Nasal Cannula Oxygen Flow Rate 3 3 BMI result Body Mass Index 30.8 Appearance: Alert. Oriented X3. No acute distress. Frail. Eyes: Pupils equal, round and reactive to light. ENT: Pharynx normal. Neck: Normal inspection. Neck supple. CVS: Normal heart rate and rhythm. Pulses normal. Respiratory: No respiratory distress. Breath sounds normal. Abdomen: Soft and nontender. Skin: Skin warm and dry. Normal skin color. Normal skin turgor. Extremities: No lower extremity edema. Moves extremities against resistance. Gait not assessed for safety. Neuro: No motor deficit. No sensory deficit. Cranial nerves 2-12 intact. Course Course Course Narrative: 87-year-old female presents via EMS for evaluation for elevated white counts. Was evaluated by nurse practitioner by dispatch med and was referred to the emergency department for evaluation. Patient has been on antibiotics, cefuroxime, ceftriaxone, and azithromycin. Was admitted for COPD exacerbation versus CHF exacerbation on 04/21/2022 and discharged on 04/24/2022. Will order lactic and cultures. Labs drawn while patient was in the emergency department waiting room, indicates were elevated white count of 14, could possibly be due to patient's prednisone use, H&H 11.3/34.8 consistent with prior values, BUN elevated at 26, which is consistent with patient's baseline. CT scan of abdomen pelvis shows chronic findings, with nothing acute. Urinalysis is positive for heme consistent with multiple straight cath and leukocyte esterase. At this time will treat for UTI, will give Levaquin as patient has been on cephalosporins and azithromycin in the past 2 weeks. Urinalysis also indicates yeast, will give Diflucan. 1 L of fluids given to this patient for elevated BUN. Patient and patient's family would like to go home, patient states that she has been in the hospital for too long and would really appreciate p.o. antibiotics versus IV antibiotic at this time will discharge patient home, patient has visiting nursing as well as 24 hour care. Medical Decision Making Differential Diagnosis Differential Diagnosis: UTI, sepsis Medical Records Medical records reviewed: Yes I reviewed the patient's medical records. Lab Data Lab results reviewed: Yes I reviewed the patient's lab results. Result diagrams: 04/30/22 16:05 04/30/22 16:05 Labs: Lab Results 04/30/22 04/30/22 04/30/22 Range/Units 16:05 16:05 22:56 WBC 14.1 H (4.8-10.8) X10*3/uL RBC 3.89 L (4.20-5.50) X10*6/uL Hgb 11.3 L (12.0-16.0) g/dl Hct 34.8 L (37.0-47.0) % MCV 89.5 (80.0-98.0) fL MCH 29.0 (27.0-33.0) pg MCHC 32.5 (31.0-35.0) g/dl RDW 15.7 (11.0-16.0) % Plt Count 267 (160-400) X10*3/uL MPV 12.0 (9.4-12.3) fL Immature Gran % (Auto) 0.9 H (0.0-0.4) % Neut % (Auto) 80.1 H (45-73) % Lymph % (Auto) 7.6 L (20-40) % [place] % (Auto) 10.5 (2-11) % Eos % (Auto) 0.8 (0-4) % Baso % (Auto) 0.1 (0-2) % Lymph # (Auto) 1.1 L (1.2-4.9) X10*3/uL [place] # (Auto) 1.5 H (0.1-1.2) X10*3/uL Eos # (Auto) 0.1 (0.0-0.4) X10*3/uL Baso # (Auto) 0.0 (0.0-0.2) X10*3/uL Abs Immat Gran (auto) 0.13 H (0.00-0.03) X10*3/uL Absolute Neuts (auto) 11.3 H (2.0-8.3) x10*3/uL Absolute Nucleated RBC 0.000 (0.0-0.012) X10*3/uL Nucleated RBC % (auto) 0.0 (0.0-0.2) /100WBC Sodium 142 (135-145) mmol/L Potassium 4.1 (3.3-5.1) mmol/L Chloride 101 (96-108) mmol/L Carbon Dioxide 28 (22-29) mmol/L Anion Gap 17 (12-20) BUN 26 H (9-16) mg/dL Creatinine 0.78 (0.5-1.4) mg/dL Estim Creat Clear Calc 66.6 Estimated GFR > 60 Random Glucose 107 (60-115) mg/dL Lactic Acid (0.5-2.0) mmol/L Calcium 9.3 (8.4-10.2) mg/dL Urine Color Urine Appearance Urine pH (5.0-9.0) Ur Specific [place] (1.005-1.025) Urine Protein (Neg-Trace) mg/dL Urine Glucose (UA) (Negative) mg/dL Urine Ketones (Negative) mg/dL Urine Blood (Negative) Urine Nitrite (Negative) Ur Leukocyte Esterase (Negative) Urine RBC (0-2) /HPF Urine WBC (0-5) /HPF Ur Squamous Epith Cells (0-2) /HPF Urine Bacteria (None Seen) Hyaline Casts (0-2) /LPF Urine Yeast COVID-19 (HERBER) Negative (Negative) COVID-19 Clin Com See Note 04/30/22 05/01/22 Range/Units 23:03 00:53 WBC (4.8-10.8) X10*3/uL RBC (4.20-5.50) X10*6/uL Hgb (12.0-16.0) g/dl Hct (37.0-47.0) % MCV (80.0-98.0) fL MCH (27.0-33.0) pg MCHC (31.0-35.0) g/dl RDW (11.0-16.0) % Plt Count (160-400) X10*3/uL MPV (9.4-12.3) fL Immature Gran % (Auto) (0.0-0.4) % Neut % (Auto) (45-73) % Lymph % (Auto) (20-40) % [place] % (Auto) (2-11) % Eos % (Auto) (0-4) % Baso % (Auto) (0-2) % Lymph # (Auto) (1.2-4.9) X10*3/uL [place] # (Auto) (0.1-1.2) X10*3/uL Eos # (Auto) (0.0-0.4) X10*3/uL Baso # (Auto) (0.0-0.2) X10*3/uL Abs Immat Gran (auto) (0.00-0.03) X10*3/uL Absolute Neuts (auto) (2.0-8.3) x10*3/uL Absolute Nucleated RBC (0.0-0.012) X10*3/uL Nucleated RBC % (auto) (0.0-0.2) /100WBC Sodium (135-145) mmol/L Potassium (3.3-5.1) mmol/L Chloride (96-108) mmol/L Carbon Dioxide (22-29) mmol/L Anion Gap (12-20) BUN (9-16) mg/dL Creatinine (0.5-1.4) mg/dL Estim Creat Clear Calc Estimated GFR Random Glucose (60-115) mg/dL Lactic Acid 0.9 (0.5-2.0) mmol/L Calcium (8.4-10.2) mg/dL Urine Color Yellow Urine Appearance Cloudy Urine pH 5.5 (5.0-9.0) Ur Specific [place] 1.015 (1.005-1.025) Urine Protein Trace (Neg-Trace) mg/dL Urine Glucose (UA) Negative (Negative) mg/dL Urine Ketones Negative (Negative) mg/dL Urine Blood Large (3+) H (Negative) Urine Nitrite Negative (Negative) Ur Leukocyte Esterase Small (1+) H (Negative) Urine RBC >20 H (0-2) /HPF Urine WBC 0-5 (0-5) /HPF Ur Squamous Epith Cells 0-2 (0-2) /HPF Urine Bacteria 4+ (None Seen) Hyaline Casts 0-2 (0-2) /LPF Urine Yeast Present COVID-19 (HERBER) (Negative) COVID-19 Clin Com Imaging Data CT scan - abdomen: Attestation: I personally reviewed and interpreted this imaging study as follows: Radiologist's impression: FINDINGS: LUNG BASES: Small right and trace left pleural effusions with accompanying atelectasis. Moderate cardiomegaly. Mitral valve placement.? LIVER, GALLBLADDER, AND BILIARY TREE: The liver is normal in size, shape, and attenuation. No focal hepatic lesion or biliary ductal dilatation is present. Cholecystectomy.? PANCREAS: Unremarkable.? SPLEEN: Unremarkable.? ADRENAL GLANDS: Stable 1.5 cm low-density nodule in left adrenal gland measures 6 Hounsfield units compatible with a lipid rich adenoma. Right adrenal gland is normal.? KIDNEYS AND URETERS: No hydronephrosis. Stable scarring of the lateral interpolar cortex of the right kidney with associated dystrophic calcification. Benign bilateral renal cysts do not require follow-up. No urinary calculi. Ureters normal in course and caliber. BLADDER: Large amount of nondependent gas within the bladder. No bladder wall thickening or perivesicular fat stranding.? GASTROINTESTINAL TRACT: Pancolonic diverticulosis, most extensive within the sigmoid colon. No evidence of diverticulitis. There is possible wall thickening of the mid sigmoid colon though this is poorly assessed due to underdistention. Appearance is similar to prior. Normal appendix. Stomach and small bowel unremarkable. ABDOMINAL WALL: No significant hernia is appreciated.? LYMPH NODES: Normal. VASCULAR: Aorta is atherosclerotic. No aneurysm. PELVIC VISCERA: Possible uterine fibroid, unchanged. No adnexal abnormalities.? OSSEOUS STRUCTURES: No acute or suspicious osseous abnormalities. Degenerative changes present throughout the spine. Moderate bilateral hip arthrosis.? CT/CT abdomen pelvis wo IV con IMPRESSION: *? No definite acute findings to explain the patient's symptomatology. *? Pancolonic diverticulosis, most extensive within the sigmoid colon which shows evidence of chronic diverticular disease as suggested by homogeneous wall thickening within the midportion, the appearance of which is stable from the prior exam. Recommend colonoscopy if not early performed to exclude underlying mass. *? There is gas within the nondependent bladder as was present on the prior examination. Has the patient recently been catheterized. No evidence of cystitis otherwise. Please correlate with urinalysis. *? Cholecystectomy. *? Stable benign left adrenal adenoma. *? Small right and trace left pleural effusions with accompanying atelectasis. Discharge Plan Discharge Clinical Impression: Recurrent UTI, Yeast cystitis Patient Disposition: Home, Self-Care Instructions: Urinary Tract Infection in Older Adults (ED) Additional Instructions: You were evaluated for abnormal lab values. Your white count is elevated at 14, could possibly be due to a recurrent urinary tract infection and prednisone use. We are treating you for urinary tract infection with Levaquin. Please monitor your INR is more frequently. Take Levaquin 750 mg for 6 days starting 05/02/2022. We gave your 1st dose in the emergency department. I prescribed Diflucan for yeast infection. Please take medication as directed. Thank you for choosing this emergency department for evaluation. Please follow-up with primary care physician as needed. Return to the emergency department for any new, concerning, or worsening symptoms. Prescriptions: New levofloxacin 750 mg tablet 750 mg PO Q24H Qty: 6 0RF Rx Instructions: Start this medication on 05/02/2022, 1st dose given in the emergency department on 05/01/2022 fluconazole [Diflucan] 150 mg tablet 150 mg PO Q3D Qty: 2 0RF Rx Instructions: may repeat second dose 72 hrs after first dose if symptoms persist No Action fluticasone furoate-vilanterol [Breo Ellipta] 100-25 mcg/dose blister with device 1 puff PO DAILY levothyroxine 88 mcg tablet 88 mcg PO DAILY omeprazole 20 mg capsule,delayed release(DR/EC) 20 mg PO DAILY@0630 potassium chloride 10 mEq tablet extended release 10 meq PO DAILY sennosides [senna] 8.6 mg Tablet 8.6 mg PO BEDTIME acetaminophen 325 mg Tablet 650 mg PO Q6H PRN (Reason: pain,fever) Rx Instructions: not to exceed 3 g/day ammonium lactate 12 % Lotion 1 appl TOPICAL BID magnesium hydroxide [Milk of Magnesia] 400 mg/5 mL Suspension 30 ml PO DAILY PRN (Reason: Constipation) Rx Instructions: for no BM in 3 days bisacodyl 10 mg Suppository 10 mg IL DAILY PRN (Reason: Constipation) Rx Instructions: if milk of magnesia not effective Fleet Enema 19-7 gram/118 mL Enema 118 ml IL DAILY PRN (Reason: Constipation) Rx Instructions: when Dulcolax suppository not effective docusate sodium 100 mg Capsule 100 mg PO BID zolpidem 5 mg tablet 1 tab PO BEDTIME zolpidem 5 mg tablet 1 tab PO BEDTIME PRN (Reason: Insomnia) polyethylene glycol 3350 [Miralax] 17 gram/dose Powder 17 g PO DAILY Rx Instructions: mix with 8 oz fluid cefuroxime axetil 500 mg tablet 500 mg PO BID Qty: 6 0RF albuterol sulfate 90 mcg/actuation HFA aerosol inhaler 2 puff inhalation Q6H PRN (Reason: shortness of breath or wheezing) Qty: 6.7 1RF furosemide 20 mg Tablet 20 mg PO QAM Qty: 30 0RF Rx Instructions: 04/15/22 - 04/22/22 warfarin 5 mg tablet 5 mg PO DAILY Protocol: Dose Management Condition: Friday (Week One) Dose/Route: 2.5 mg Instruction: 0.5 x 5 mg tablets Condition: Friday Dose/Route: 5 mg Instruction: 1 x 5 mg tablet Condition: Friday Dose/Route: 2.5 mg Instruction: 0.5 x 5 mg tablets Condition: Friday Dose/Route: 5 mg Instruction: 1 x 5 mg tablet Condition: Dose/Route: 2.5 mg Instruction: 0.5 x 5 mg tablets Condition: Friday Dose/Route: 5 mg Instruction: 1 x 5 mg tablet Condition: Friday Dose/Route: 2.5 mg Instruction: 0.5 x 5 mg tablets Condition: Friday (Week Two) Dose/Route: 2.5 mg Instruction: 0.5 x 5 mg tablets Condition: Friday Dose/Route: 5 mg Instruction: 1 x 5 mg tablet Condition: Friday Dose/Route: 2.5 mg Instruction: 0.5 x 5 mg tablets Condition: Friday Dose/Route: 5 mg Instruction: 1 x 5 mg tablet Condition: Dose/Route: 2.5 mg Instruction: 0.5 x 5 mg tablets Condition: Friday Dose/Route: 5 mg Instruction: 1 x 5 mg tablet Condition: Friday Dose/Route: 2.5 mg Instruction: 0.5 x 5 mg tablets Protocol Text: Adjustment Start Date: Friday04/30/22 INR Value: 2.9 INR Date: 04/30/22 Recheck Date: 05/02/22 Additional Instructions: cont reg dosing will eat a green todayh Rx Instructions: FROM 04/19-04/22 FOR INR 1.25 ON 04/19 diltiazem HCl 120 mg capsule,extended release 24hr 120 mg PO DAILY doxepin 10 mg capsule 10 mg PO BEDTIME PRN (Reason: Itching) terazosin 1 mg capsule 1 mg PO BEDTIME 30 Days Qty: 30 1RF
[2022-04-30 23:26] VITALS: BP 146/50; PULSE 66; RESP 17; TEMP 36.7; O2SAT 100
[2022-04-30 23:28] LABS: Lactic Acid 0.9 mmol/L (0.5-2.0)
[2022-04-30 23:28] LABS: COVID-19 Test Negative (Negative); IDNOW Serial# 16C4AD1C
[2022-05-01] MEDS: 0.9 % Sodium Chloride 1,000 ML 999 ML IVCONT (00:56)
[2022-05-01 01:02] LABS: Appearance Urine Cloudy; Color Urine Yellow; Glucose Urine UA Negative (Negative); Leukocyte Esterase Urine Small (1+) (Negative); Nitrite Urine Negative (Negative); PH 5.5 (5.0-9.0); Specific Gravity - Urine 1.015 (1.005-1.025); UMIC TRIGGER UACC YES; Urine Blood Large (3+) (Negative); Urine Ketones Negative (Negative); Urine Protein Trace mg/dL (Neg-Trace)
[2022-05-01 01:11] LABS: Bacteria Urine 4+ (None Seen); Hyaline Casts Urine 0-2 /LPF (0-2); RBC Urine >20 /HPF (0-2); Squamous Epithelial Cell Urine 0-2 /HPF (0-2); UACC Culture Trigger YES; WBC Urine 0-5 /HPF (0-5)
[2022-05-01] MEDS: levoFLOXacin 750 MG TABLET PO (02:10)
[2022-05-01] MEDS: Fluconazole 150 MG TABLET PO (02:10)
== END 2022-05-01 02:43 | disposition home or self-care (01) ==
PROVIDERS: Nurse Practitioner Family; Emergency Provider Internal Medicine; PCP Nurse Practitioner Family
DX: N39.0 Urinary tract infection, site not specified (principal); Z20.822 Contact with and (suspected) exposure to COVID-19; Z79.899 Other long term (current) drug therapy
CPT/HCPCS: 36415; 74176; 80048; 81001; 81003; 83605; 85025; 87040; 87086; 87088; 87186; 87635; 96360; 99284

== ENCOUNTER 2022-05-02 03:32 | Inpatient (IN) | payer MEDICARE, OTHER, SELFPAY ==
[2022-05-02] VITALS (9 sets, daily range): BP systolic 123–150; BP diastolic 56–72; PULSE 62–94; RESP 16–25; TEMP 36.6–36.9; O2SAT 94–97; BMI 30.8
--- NOTE | ~2022-05-02 | XR_ITS ---
EXAMINATION: XR CHEST CLINICAL INFORMATION: Weakness COMPARISON: 04/21/2022 TECHNIQUE: Frontal view of the chest was obtained. FINDINGS: Dual-chamber cardiac pacemaker in place with leads extending to the level of the right atrium and region of apex of right ventricle. Cardiac silhouette is mildly enlarged, status post mitral valve replacement, with intact sternotomy wires in place. The central pulmonary vessels remain mildly enlarged, as noted on 04/21/2022, and there is prominence of the peribronchial interstitium. However, no peripheral septal thickening is identified in either lung. Mild haziness at the bases is likely from trace pleural effusions. The thoracic aorta is calcified. Bones are diffusely osteopenic. There is likely an old compression fracture in the midthoracic spine. XR/XR chest 1V IMPRESSION: Mild cardiomegaly, pulmonary vascular congestion and trace pleural effusions. The findings are suggestive of mild congestive heart failure. Overall, no significant change compared to 04/21/2022.
--- NOTE | ~2022-05-02 | CT_ITS ---
EXAMINATION: CT HEAD W/O IV CONTRAST CT CERVICAL SPINE W/O IV CONTRAST CLINICAL INFORMATION: 87-year-old female with history of fall. COMPARISON: Head CT from 08/27/2019. C-spine CT from 04/28/2019. TECHNIQUE: Head - Contiguous axial imaging of the head was performed from the skull base to the vertex without the administration of intravenous contrast, and axial images are reconstructed at 2 mm and 5 mm slice thickness. Cervical spine - A volumetric, helical CT acquisition of the cervical spine was obtained without contrast; in addition to the standard set of axial images, multiplanar reformatted images were provided in the coronal and sagittal imaging planes. This CT examination was performed using dose optimization techniques as appropriate, variously including the following: *Automated exposure control *Adjustment of mA and/or kV according to patient size (this includes techniques or standardized protocols for targeted exams where dose is matched to indication/reason for exam; i.e. extremities or head) *Use of iterative reconstruction technique DLP: 1135 mGy-cm (total) FINDINGS: HEAD: No intracranial hemorrhage, extra-axial fluid collection, focal mass effect or midline shift. Chronic moderate parenchymal volume loss with commensurate prominence of ventricles and sulci. No hydrocephalus. There is atherosclerotic calcification of cavernous carotid arteries. Chronic patchy and confluent hypoattenuation within supratentorial white matter is compatible with sequela of microangiopathy. Old lacunar infarcts in the gangliocapsular regions. The freeman-white matter differentiation is maintained. No evidence of an acute major vascular territory infarction. The visualized paranasal sinuses, mastoid air cells and middle ear cavities are well aerated. No acute findings in either orbit or at temporomandibular joints. No evidence of scalp hematoma or calvarial fracture. CERVICAL SPINE: The cervical spine has normal lordotic curvature. There is patient motion on many images through the spine. The craniocervical junction is normal. The occipital condyles, dens and atlantodental articulation are intact. There is degenerative subarticular sclerosis and osseous spurring at the atlantodental articulation. The vertebral body heights and alignment are maintained. No fractures in the anterior or posterior elements. No prevertebral soft tissue swelling. Chronic multilevel facet arthropathy and disc degenerative changes. Findings include moderate loss of disc height and osteophyte formation at C5-C6, C6-C7 and C7-T1. No significant central canal stenosis. There are varying degrees of multilevel neural foraminal stenosis. The foraminal stenosis appears to be chronically worst on the right at C5-C6 and on the left at C4-C5. No acute findings in the spine compared to 04/28/2019. No hematoma in the visualized neck. There is centrilobular emphysema of the visualized lung apices. Thyroid gland is atrophied. Atherosclerotic calcification of carotid bulbs/bifurcations. CT/CT cervical spine wo IV con IMPRESSION: * No intracranial hemorrhage or other acute intracranial pathology compared to 08/27/2019. * Chronic moderate cerebral atrophy and chronic small vessel ischemic changes of supratentorial white matter. * No fracture or malalignment in the chronically degenerated cervical spine.
--- NOTE | 2022-05-02 05:58 | PC.NURSE ---
PT incontinent in her brief. Cleaned pt and set her up with the reinack.
--- NOTE | 2022-05-02 06:49 | ECG_ITS ---
Test Reason : AMS Blood Pressure : / mmHG Vent. Rate : 073 BPM Atrial Rate : 000 BPM P-R Int : 000 ms QRS Dur : 102 ms QT Int : 382 ms P-R-T Axes : 000 -07 017 degrees QTc Int : 420 ms Atrial fibrillation with frequent ventricular-paced complexes and with premature ventricular or aberrantly conducted complexes Septal infarct , age undetermined Abnormal ECG When compared with ECG of 21-APR-2022 12:28, Vent. rate has decreased BY 6 BPM Referred By: Michelle Cummings Electronically Signed By:SLOAN ORR
--- NOTE | 2022-05-02 07:16 | ED.AMS ---
HPI - Altered Mental Status General Chief Complaint: Altered Mental Status Stated Complaint: fall Time Seen by Provider: 05/02/22 06:48 Source: patient and old records reviewed Mode of arrival: EMS Limitations: altered mental status History of Present Illness HPI narrative: 87 yo female with hx of afib on coumadin, MVR, HTN, COPD, PPM, recent admission for CHF/COPD and UTI on cefuroxime dc on 04/24 didn't take her medications she thinks called 911 this AM after she thought she fell out of bed. She was found in her bed and then notes she is confused and doesn't feel well. She isn't sure she actually fell and she thinks she might not have taken her antibiotics. SHe notes she just doesn't feel like herself. Seen in ED on 04/30 given levofloxacin and diflucan - could be delerium from abx though I see macrobid filled. MD complaint: confusion Onset (ago): day(s) (1) Severity: mild Consistency of symptoms: unknown Context: COPD Associated symptoms: chills and malaise Related Data Home Medications Medication Instructions Recorded Confirmed fluticasone furoate 100 1 puff PO DAILY 03/09/21 05/02/22 mcg-vilanterol 25 mcg/dose inhalation powder (Breo Ellipta) diltiazem HCl 120 mg 120 mg PO DAILY 09/20/21 05/02/22 capsule,extended release 24 hr levothyroxine 88 mcg tablet 88 mcg PO DAILY 09/20/21 05/02/22 omeprazole 20 mg capsule,delayed 20 mg PO DAILY@0630 09/20/21 05/02/22 release potassium chloride 10 mEq 10 meq PO DAILY 09/20/21 05/02/22 tablet,extended release doxepin 10 mg capsule 10 mg PO BEDTIME PRN Itching 01/22/22 05/02/22 warfarin 5 mg tablet 5 mg PO MOWEFR@1800 02/20/22 05/02/22 acetaminophen 325 mg tablet 650 mg PO Q6H PRN pain,fever 04/21/22 05/02/22 ammonium lactate 12 % lotion 1 appl topical BID 04/21/22 05/02/22 bisacodyl 10 mg rectal suppository 10 mg NV DAILY PRN Constipation 04/21/22 05/02/22 docusate sodium 100 mg capsule 100 mg PO BID 04/21/22 05/02/22 magnesium hydroxide 400 mg/5 mL 30 ml PO DAILY PRN Constipation 04/21/22 05/02/22 oral suspension (Milk of Magnesia) polyethylene glycol 3350 17 17 g PO DAILY 04/21/22 05/02/22 gram/dose oral powder (Miralax) sennosides 8.6 mg tablet (senna) 8.6 mg PO BEDTIME 04/21/22 05/02/22 sodium phosphates 19 gram-7 118 ml NV DAILY PRN Constipation 04/21/22 05/02/22 gram/118 mL enema (Fleet Enema) zolpidem 5 mg tablet 1 tab PO BEDTIME PRN Insomnia 04/21/22 05/02/22 fluconazole 150 mg tablet 150 mg PO Q3D PRN yeast infection 05/02/22 05/02/22 (Diflucan) warfarin 5 mg tablet 2.5 mg PO SUTUTHSA@18 05/02/22 05/02/22 Previous Rx's Medication Instructions Recorded terazosin 1 mg capsule 1 mg PO BEDTIME 30 days #30 caps 01/22/22 albuterol sulfate 90 mcg/actuation 2 puff inhalation Q6H PRN 04/24/22 aerosol inhaler shortness of breath or wheezing #6.7 grams furosemide 20 mg tablet 20 mg PO QAM #30 tabs 04/24/22 levofloxacin 750 mg tablet 750 mg PO Q24H #6 tabs 05/01/22 Allergies Allergy/AdvReac Type Severity Reaction Status Date / Time pine nut [PINE NUT] Allergy Unknown RASH Verified 04/30/22 10:33 Review of Systems Review of Systems: Constitutional : No Fever, pos Chills, pos Fatigue ENT/Mouth : No sore throat, No Rhinorrhea Eyes: No Eye Pain, No Swelling, No Redness Cardiovascular : No Chest Pain, No SOB, No Dyspnea on Exertion Respiratory : No Cough, No Sputum Gastrointestinal : No Nausea, No Vomiting, No Diarrhea, No abdominal Pain Genitourinary : No Dysuria, No Urinary Frequency, No Hematuria, Musculoskeletal : No joint pain, No Myalgias, No Joint Swelling Skin : No Skin Lesions, No rash Neuro : pos Weakness, No Numbness, No Dizziness, no Headache, pos confusion Psych : No Anxiety/Panic, No Depression Heme/Lymph: No Bruising, No Bleeding,No Lymphadenopathy Endocrine : No Polyuria, No Polydipsia All other systems reviewed and are negative [facility] Past Medical History Attestation statement: The following information was validated with the patient. Source: old records reviewed Medical History Cardiac pacemaker in situ CHF (congestive heart failure) Chronic atrial fibrillation Chronic respiratory failure with hypoxia Congestive heart failure COPD (chronic obstructive pulmonary disease) Hypertension On Coumadin for atrial fibrillation Surgical History H/O mitral valve replacement History of permanent cardiac pacemaker placement Hx of mitral valve repair Family History Family History Mother Liver cancer Social History Social History Household Members: None [facility] Do you presently have visiting nurse or other home services: No Alcohol intake: never Patient Tobacco Use Status: Former Tobacco user Second Hand Smoke Exposure: No Use of substances other than those prescribed or required for medical reasons: No Advance Directives: Yes Advance Directives on File: Yes Advance Directives Date on File: 01/05/21 service: No Current occupational status: retired Physical Exam ED Vital Signs: Vital Signs - 24 hr 05/02/22 03:48 05/02/22 03:59 05/02/22 05:57 Temperature 98.2 F 98.2 F Pulse Rate 72 68 68 Respiratory Rate 18 18 25 H Blood Pressure 128/60 123/62 142/57 H Pulse Oximetry 97 97 96 Oxygen Delivery Method Nasal Cannula Nasal Cannula Nasal Cannula Oxygen Flow Rate 3 3 05/02/22 08:30 05/02/22 11:58 Temperature Pulse Rate 74 72 Respiratory Rate 23 H 19 Blood Pressure 126/56 L 136/56 L Pulse Oximetry 95 97 Oxygen Delivery Method Nasal Cannula Room Air Oxygen Flow Rate 2.5 BMI result Body Mass Index 30.8 Appearance: Alert. Oriented X3. No acute distress. anxious able to answer questions but states she is confused Eyes: Pupils equal, round and reactive to light. ENT: Pharynx normal. atraumatic Neck: Normal inspection. Neck supple. CVS: irregular heart rate and rhythm. Pulses normal. Respiratory: No respiratory distress. Breath sounds slightly diminished Abdomen: Soft and nontender. Skin: Skin warm and dry. palel skin color. Normal skin turgor. old appearing ecchymosis R arm Extremities: 2+ pitting lower extremity edema. No calf ttp Neuro: Oriented X 3. No motor deficit. No sensory deficit. Course Course Course Narrative: recent negative CT scan of abdomen chronic findings on 05/01 doubt infection she is still delerious will admit for delerium - could be age or med related MDM - Altered Mental Status MDM Narrative Medical decision making narrative: 87 yo female with hx of afib on coumadin, MVR, HTN, COPD, PPM, recent admission for CHF/COPD and UTI on cefuroxime dc on 04/24 here with confusion and not feeling well - at this time will obtain labs, cultures, UA, CXR, CT head for ICH given AC use. Empiric ceftriaxone use as well given recent UTI and she believes she didn't take the antibiotics. Dispo per results and clinical findings. Lab Data Result diagrams: 05/02/22 07:42 05/02/22 07:42 Labs: Lab Results 05/02/22 05/02/22 05/02/22 Range/Units 07:42 07:42 07:42 WBC 14.5 H (4.8-10.8) X10*3/uL RBC 3.53 L (4.20-5.50) X10*6/uL Hgb 10.1 L (12.0-16.0) g/dl Hct 31.7 L (37.0-47.0) % MCV 89.8 (80.0-98.0) fL MCH 28.6 (27.0-33.0) pg MCHC 31.9 (31.0-35.0) g/dl RDW 15.8 (11.0-16.0) % Plt Count 239 (160-400) X10*3/uL MPV 12.1 (9.4-12.3) fL Immature Gran % (Auto) 1.0 H (0.0-0.4) % Neut % (Auto) 83.8 H (45-73) % Lymph % (Auto) 6.6 L (20-40) % [place] % (Auto) 8.1 (2-11) % Eos % (Auto) 0.4 (0-4) % Baso % (Auto) 0.1 (0-2) % Lymph # (Auto) 1.0 L (1.2-4.9) X10*3/uL [place] # (Auto) 1.2 (0.1-1.2) X10*3/uL Eos # (Auto) 0.1 (0.0-0.4) X10*3/uL Baso # (Auto) 0.0 (0.0-0.2) X10*3/uL Abs Immat Gran (auto) 0.15 H (0.00-0.03) X10*3/uL Absolute Neuts (auto) 12.1 H (2.0-8.3) x10*3/uL Absolute Nucleated RBC 0.000 (0.0-0.012) X10*3/uL Nucleated RBC % (auto) 0.0 (0.0-0.2) /100WBC PT (10.0-13.1) SEC INR (0.9-1.1) VBG pH (7.32-7.43) VBG pCO2 mmHg VBG pO2 mmHg VBG HCO3 (22-26) mmol/L VBG O2 Saturation % VBG Base Excess mmol/L Sodium 143 (135-145) mmol/L Potassium 3.8 (3.3-5.1) mmol/L Chloride 103 (96-108) mmol/L Carbon Dioxide 29 (22-29) mmol/L Anion Gap 15 (12-20) BUN 22 H (9-16) mg/dL Creatinine 0.77 (0.5-1.4) mg/dL Estim Creat Clear Calc 67.5 Estimated GFR > 60 Random Glucose 91 (60-115) mg/dL Lactic Acid (0.5-2.0) mmol/L Calcium 9.1 (8.4-10.2) mg/dL Magnesium 2.2 (1.6-2.6) mg/dL Total Bilirubin 1.3 H (0.0-1.0) mg/dL Direct Bilirubin 0.6 H (0.0-0.5) mg/dL AST 16 (5-31) U/L ALT 16 (0-31) U/L Alkaline Phosphatase 75 D (39-117) U/L Total Creatine Kinase 22 L (26-140) U/L Troponin I High Sens 17.5 H D (<3.5-17.0) ng/L B-Natriuretic Peptide 174 H (<100) pg/mL Total Protein 5.8 L (6.5-8.0) g/dL Albumin 3.7 (3.5-5.0) g/dL Lipase 23 (8-78) U/L Urine Color Urine Appearance Urine pH (5.0-9.0) Ur Specific [place] (1.005-1.025) Urine Protein (Neg-Trace) mg/dL Urine Glucose (UA) (Negative) mg/dL Urine Ketones (Negative) mg/dL Urine Blood (Negative) Urine Nitrite (Negative) Ur Leukocyte Esterase (Negative) Urine RBC (0-2) /HPF Urine WBC (0-5) /HPF Ur Squamous Epith Cells (0-2) /HPF Calcium Oxalate Crystal Urine Bacteria (None Seen) Hyaline Casts (0-2) /LPF COVID-19 (HERBER) (Negative) COVID-19 Clin Com 05/02/22 05/02/22 05/02/22 Range/Units 07:42 07:59 07:59 WBC (4.8-10.8) X10*3/uL RBC (4.20-5.50) X10*6/uL Hgb (12.0-16.0) g/dl Hct (37.0-47.0) % MCV (80.0-98.0) fL MCH (27.0-33.0) pg MCHC (31.0-35.0) g/dl RDW (11.0-16.0) % Plt Count (160-400) X10*3/uL MPV (9.4-12.3) fL Immature Gran % (Auto) (0.0-0.4) % Neut % (Auto) (45-73) % Lymph % (Auto) (20-40) % [place] % (Auto) (2-11) % Eos % (Auto) (0-4) % Baso % (Auto) (0-2) % Lymph # (Auto) (1.2-4.9) X10*3/uL [place] # (Auto) (0.1-1.2) X10*3/uL Eos # (Auto) (0.0-0.4) X10*3/uL Baso # (Auto) (0.0-0.2) X10*3/uL Abs Immat Gran (auto) (0.00-0.03) X10*3/uL Absolute Neuts (auto) (2.0-8.3) x10*3/uL Absolute Nucleated RBC (0.0-0.012) X10*3/uL Nucleated RBC % (auto) (0.0-0.2) /100WBC PT 42.9 H (10.0-13.1) SEC INR 3.5 H (0.9-1.1) VBG pH (7.32-7.43) VBG pCO2 mmHg VBG pO2 mmHg VBG HCO3 (22-26) mmol/L VBG O2 Saturation % VBG Base Excess mmol/L Sodium (135-145) mmol/L Potassium (3.3-5.1) mmol/L Chloride (96-108) mmol/L Carbon Dioxide (22-29) mmol/L Anion Gap (12-20) BUN (9-16) mg/dL Creatinine (0.5-1.4) mg/dL Estim Creat Clear Calc Estimated GFR Random Glucose (60-115) mg/dL Lactic Acid 0.6 (0.5-2.0) mmol/L Calcium (8.4-10.2) mg/dL Magnesium (1.6-2.6) mg/dL Total Bilirubin (0.0-1.0) mg/dL Direct Bilirubin (0.0-0.5) mg/dL AST (5-31) U/L ALT (0-31) U/L Alkaline Phosphatase (39-117) U/L Total Creatine Kinase (26-140) U/L Troponin I High Sens (<3.5-17.0) ng/L B-Natriuretic Peptide (<100) pg/mL Total Protein (6.5-8.0) g/dL Albumin (3.5-5.0) g/dL Lipase (8-78) U/L Urine Color Urine Appearance Urine pH (5.0-9.0) Ur Specific [place] (1.005-1.025) Urine Protein (Neg-Trace) mg/dL Urine Glucose (UA) (Negative) mg/dL Urine Ketones (Negative) mg/dL Urine Blood (Negative) Urine Nitrite (Negative) Ur Leukocyte Esterase (Negative) Urine RBC (0-2) /HPF Urine WBC (0-5) /HPF Ur Squamous Epith Cells (0-2) /HPF Calcium Oxalate Crystal Urine Bacteria (None Seen) Hyaline Casts (0-2) /LPF COVID-19 (HERBER) Negative (Negative) COVID-19 Clin Com See Note 05/02/22 05/02/22 05/02/22 Range/Units 08:03 08:33 09:47 WBC (4.8-10.8) X10*3/uL RBC (4.20-5.50) X10*6/uL Hgb (12.0-16.0) g/dl Hct (37.0-47.0) % MCV (80.0-98.0) fL MCH (27.0-33.0) pg MCHC (31.0-35.0) g/dl RDW (11.0-16.0) % Plt Count (160-400) X10*3/uL MPV (9.4-12.3) fL Immature Gran % (Auto) (0.0-0.4) % Neut % (Auto) (45-73) % Lymph % (Auto) (20-40) % [place] % (Auto) (2-11) % Eos % (Auto) (0-4) % Baso % (Auto) (0-2) % Lymph # (Auto) (1.2-4.9) X10*3/uL [place] # (Auto) (0.1-1.2) X10*3/uL Eos # (Auto) (0.0-0.4) X10*3/uL Baso # (Auto) (0.0-0.2) X10*3/uL Abs Immat Gran (auto) (0.00-0.03) X10*3/uL Absolute Neuts (auto) (2.0-8.3) x10*3/uL Absolute Nucleated RBC (0.0-0.012) X10*3/uL Nucleated RBC % (auto) (0.0-0.2) /100WBC PT (10.0-13.1) SEC INR (0.9-1.1) VBG pH 7.47 H (7.32-7.43) VBG pCO2 46 mmHg VBG pO2 62 mmHg VBG HCO3 34 H (22-26) mmol/L VBG O2 Saturation 91.0 % VBG Base Excess 9.9 mmol/L Sodium (135-145) mmol/L Potassium (3.3-5.1) mmol/L Chloride (96-108) mmol/L Carbon Dioxide (22-29) mmol/L Anion Gap (12-20) BUN (9-16) mg/dL Creatinine (0.5-1.4) mg/dL Estim Creat Clear Calc Estimated GFR Random Glucose (60-115) mg/dL Lactic Acid (0.5-2.0) mmol/L Calcium (8.4-10.2) mg/dL Magnesium (1.6-2.6) mg/dL Total Bilirubin (0.0-1.0) mg/dL Direct Bilirubin (0.0-0.5) mg/dL AST (5-31) U/L ALT (0-31) U/L Alkaline Phosphatase (39-117) U/L Total Creatine Kinase (26-140) U/L Troponin I High Sens 16.1 (<3.5-17.0) ng/L B-Natriuretic Peptide (<100) pg/mL Total Protein (6.5-8.0) g/dL Albumin (3.5-5.0) g/dL Lipase (8-78) U/L Urine Color Yellow Urine Appearance Cloudy Urine pH 7.0 (5.0-9.0) Ur Specific [place] 1.020 (1.005-1.025) Urine Protein 30 (1+) H (Neg-Trace) mg/dL Urine Glucose (UA) Negative (Negative) mg/dL Urine Ketones Trace (Negative) mg/dL Urine Blood Large (3+) H (Negative) Urine Nitrite Negative (Negative) Ur Leukocyte Esterase Small (1+) H (Negative) Urine RBC >20 H (0-2) /HPF Urine WBC 6-10 H (0-5) /HPF Ur Squamous Epith Cells 3-5 (0-2) /HPF Calcium Oxalate Crystal Present Urine Bacteria Trace (None Seen) Hyaline Casts 0-2 (0-2) /LPF COVID-19 (HERBER) (Negative) COVID-19 Clin Com ECG Data ECG #1: Attestation: I personally reviewed and interpreted this ECG as follows: ECG interpretation date: 05/02/22 ECG interpretation time: 08:05 Interpretation: Rate: 73 Rhythm: afib with PVC Dickinson: normal Normal QRS complex. ST T wave : artifact noted, nonspecific changes but no CRISTINA qTC: normal prior studies: no acute changes but sig artifact in anterior leads The study has been interpreted contemporaneously by me. . Discharge Plan Discharge Clinical Impression: Acute encephalopathy, Pleural effusion, Delirium due to general medical condition Patient Disposition: Admitted As Inpatient
[2022-05-02 07:48] LABS: MANUAL DIFF FLAG NO
[2022-05-02 07:51] LABS: Basophils Percent Auto 0.1 % (0-2); Eosinophils Absolute Auto 0.1 X10*3/uL (0.0-0.4); Eosinophils Percent Auto 0.4 % (0-4); Hematocrit 31.7 % (37.0-47.0); Hemoglobin 10.1 g/dl (12.0-16.0); Imm Gran Abs Auto 0.15 X10*3/uL (0.00-0.03); Lymphocytes Percent Auto 6.6 % (20-40); Mean Corpuscular HGB Conc 31.9 g/dl (31.0-35.0); Mean Corpuscular Hemoglobin 28.6 pg (27.0-33.0); Mean Corpuscular Volume 89.8 fL (80.0-98.0); Mean Platelet Volume 12.1 fL (9.4-12.3); Monocytes Absolute Auto 1.2 X10*3/uL (0.1-1.2); Monocytes Percent Auto 8.1 % (2-11); Neutrophils Absolute Auto 12.1 x10*3/uL (2.0-8.3); Neutrophils Percent Auto 83.8 % (45-73); Platelet Count 239 X10*3/uL (160-400); Red Blood Count 3.53 X10*6/uL (4.20-5.50); Red Cell Distribution Width 15.8 % (11.0-16.0); White Blood Count 14.5 X10*3/uL (4.8-10.8)
[2022-05-02 08:05] LABS: COVID-19 Test Negative (Negative); IDNOW Serial# 9DB6401D
[2022-05-02] MEDS: cefTRIAXone sodium 1 GM in 0.9 % Sodium Chloride 50 ML IV (08:05)
[2022-05-02 08:09] LABS: Alanine Aminotransferase 16 U/L (0-31); Albumin Level 3.7 g/dL (3.5-5.0); Alkaline Phosphatase 75 U/L (39-117); Anion Gap 15 (12-20); Aspartate Amino Transferase 16 U/L (5-31); Bilirubin Direct 0.6 mg/dL (0.0-0.5); Bilirubin Total 1.3 mg/dL (0.0-1.0); Blood Urea Nitrogen 22 mg/dL (9-16); Calcium 9.1 mg/dL (8.4-10.2); Carbon Dioxide 29 mmol/L (22-29); Chloride 103 mmol/L (96-108); Creatinine Clr Calc Pharmacy 67.5; Estimated Glomerular Filt Rate > 60; Glucose Random 91 mg/dL (60-115); Lipase 23 U/L (8-78); Magnesium 2.2 mg/dL (1.6-2.6); Potassium 3.8 mmol/L (3.3-5.1); Sodium 143 mmol/L (135-145); Total Protein 5.8 g/dL (6.5-8.0)
[2022-05-02 08:15] LABS: Troponin-I High Sensitivity 17.5 ng/L (<3.5-17.0)
[2022-05-02 08:15] LABS: INTERNATIONAL NORM RATIO 3.5 (0.9-1.1); Lactic Acid 0.6 mmol/L (0.5-2.0); Prothrombin Time 42.9 SEC (10.0-13.1)
[2022-05-02 08:50] LABS: Venous Blood Gas Refer to POC result
[2022-05-02 08:51] LABS: VBG Base Excess 9.9 mmol/L; VBG HCO3 34 mmol/L (22-26); VBG pCO2 46 mmHg; VBG pH 7.47 (7.32-7.43); VBG pO2 62 mmHg
[2022-05-02 08:51] LABS: Appearance Urine Cloudy; Color Urine Yellow; Glucose Urine UA Negative (Negative); Leukocyte Esterase Urine Small (1+) (Negative); Nitrite Urine Negative (Negative); UMIC TRIGGER UACC YES; Urine Blood Large (3+) (Negative); Urine Ketones Trace mg/dL (Negative); Urine Protein 30 (1+) mg/dL (Neg-Trace)
[2022-05-02 09:06] LABS: Bacteria Urine Trace (None Seen); Calcium Oxalate Crystals Urine Present; Hyaline Casts Urine 0-2 /LPF (0-2); RBC Urine >20 /HPF (0-2); UACC Culture Trigger YES
[2022-05-02 09:13] LABS: B Type Natriuretic Peptide 174 pg/mL (<100)
[2022-05-02] MEDS: Furosemide 20 MG/2 ML VIAL IVPUSH (09:39)
[2022-05-02 10:17] LABS: Troponin-I High Sensitivity 16.1 ng/L (<3.5-17.0)
--- NOTE | 2022-05-02 11:27 | PHA.MEDREC ---
Pharmacy Consult ? Medication Reconciliation Pharmacy has completed the medication reconciliation. completed with recent medical records and anticoagulation clinic dosing protocol
--- NOTE | 2022-05-02 12:19 | PM.IMHP ---
History of Present Illness Date of Service: 05/02/22 Chief Complaint: ams 87F pmh hypoxic respiratory failure secondary to COPD on 2.5 L home oxygen, chronic atrial fibrillation on Coumadin, chronic diastolic CHF, chronic Nelson for urinary retention, hypertension, recently discharged home from [facility] 04/24/2022 after hospitalization for CHF/COPD presented with vague complaints of not feeling well. Patient believes she fell out of bed and called 911, was found in bed confused, could not remember events of the last week. She was recently seen in the ED on 04/30 and given levofloxacin and Diflucan, but appears not to have filled scripts. Patient's long-term memory appears to be intact, but is unable to give any reliable history over the past week. Patient denies any pain, shortness of breath, dysuria. Review of Systems Review of Systems: Constitutional: Denies fever, denies Chills Eyes: denies blurry vision ENT: denies sore throat CVS: denies chest pain Respiratory: Denies dyspnea GI: no abdominal pain : denies dysuria MSK: denies neck pain Skin: denies rash Neuro: denies specific motor weakness Psych: denies suicidal ideation Endocrine: denies heat/cold intolerance Hematologic: denies easy bleeding Allergy: denies hives [facility] Medical History Cardiac pacemaker in situ CHF (congestive heart failure) Chronic atrial fibrillation Chronic respiratory failure with hypoxia Congestive heart failure COPD (chronic obstructive pulmonary disease) Hypertension On Coumadin for atrial fibrillation Family History Mother Liver cancer Surgical History H/O mitral valve replacement History of permanent cardiac pacemaker placement Hx of mitral valve repair Social History Household Members: None Housing: Condominium Do you presently have visiting nurse or other home services: No Alcohol intake: never Patient Tobacco Use Status: Former Tobacco user Second Hand Smoke Exposure: No Use of substances other than those prescribed or required for medical reasons: No Advance Directives: Yes Advance Directives on File: Yes Advance Directives Date on File: 01/05/21 service: No Current occupational status: retired Meds Allergies Allergy/AdvReac Type Severity Reaction Status Date / Time pine nut [PINE NUT] Allergy Unknown RASH Verified 04/30/22 10:33 Active Medications: Current Medications Acetaminophen (Acetaminophen 325 Mg Tablet) 650 mg PO Q6H PRN PRN Reason: pain,fever Albuterol Sulfate (Albuterol Sulfate 90 Mcg 8 Gm Inhaler) 2 puff INHALE Q6H PRN PRN Reason: shortness of breath or wheezing Bisacodyl (Bisacodyl 10 Mg Supp.Rect) 10 mg NM DAILY PRN PRN Reason: Constipation Diltiazem HCl (Diltiazem Hcl Cd 120 Mg Cap.Er.Deg) mg PO DAILY [facility]; Protocol Fluticasone/Vilanterol (Fluticasone/Vilanterol 100/25 Blst.W.Dev) 1 puff INHALE DAILY [facility] Furosemide (Furosemide 20 Mg Tablet) 20 mg PO QAM [facility]; Protocol Levothyroxine Sodium (Levothyroxine Sodium 88 Mcg Tablet) mcg PO DAILY [facility] Non-Formulary Medication (Terazosin) 1 mg PO BEDTIME [facility] Omeprazole (Omeprazole 20 Mg Capsule.) mg PO DAILY@0630 [facility] Pharmacy Consult (Consult Rx Perform Med Rec) 1 each MISCELLANE ONCE PRN PRN Reason: Consult order Warfarin Sodium (Warfarin Sodium 2.5 Mg Tablet) 2.5 mg PO SUTUTHSA@18 [facility] Warfarin Sodium (Warfarin Sodium 5 Mg Tablet) 5 mg PO MOWEFR@1800 [facility] Home Medications Medication Instructions Recorded Confirmed Last Taken Type fluticasone furoate 100 1 puff PO DAILY 03/09/21 05/02/22 04/21/22 History mcg-vilanterol 25 mcg/dose inhalation powder (Breo Ellipta) diltiazem HCl 120 mg 120 mg PO DAILY 09/20/21 05/02/22 04/21/22 History capsule,extended release 24 hr levothyroxine 88 mcg tablet 88 mcg PO DAILY 09/20/21 05/02/22 04/21/22 History omeprazole 20 mg capsule,delayed 20 mg PO DAILY@0630 09/20/21 05/02/22 04/21/22 History release potassium chloride 10 mEq 10 meq PO DAILY 09/20/21 05/02/22 04/21/22 History tablet,extended release doxepin 10 mg capsule 10 mg PO BEDTIME PRN Itching 01/22/22 05/02/22 02/19/22 History warfarin 5 mg tablet 5 mg PO MOWEFR@1800 02/20/22 05/02/22 04/21/22 History acetaminophen 325 mg tablet 650 mg PO Q6H PRN pain,fever 04/21/22 05/02/22 Unknown History ammonium lactate 12 % lotion 1 appl topical BID 04/21/22 05/02/22 Unknown History bisacodyl 10 mg rectal suppository 10 mg NM DAILY PRN Constipation 04/21/22 05/02/22 Unknown History docusate sodium 100 mg capsule 100 mg PO BID 04/21/22 05/02/22 Unknown History magnesium hydroxide 400 mg/5 mL 30 ml PO DAILY PRN Constipation 04/21/22 05/02/22 Unknown History oral suspension (Milk of Magnesia) polyethylene glycol 3350 17 17 g PO DAILY 04/21/22 05/02/22 Unknown History gram/dose oral powder (Miralax) sennosides 8.6 mg tablet (senna) 8.6 mg PO BEDTIME 04/21/22 05/02/22 Unknown History sodium phosphates 19 gram-7 118 ml NM DAILY PRN Constipation 04/21/22 05/02/22 Unknown History gram/118 mL enema (Fleet Enema) zolpidem 5 mg tablet 1 tab PO BEDTIME PRN Insomnia 04/21/22 05/02/22 Unknown History fluconazole 150 mg tablet 150 mg PO Q3D PRN yeast infection 05/02/22 05/02/22 Unknown History (Diflucan) warfarin 5 mg tablet 2.5 mg PO SUTUTHSA@18 05/02/22 05/02/22 Unknown History Physical Exam Vital Signs and Narrative: Vital Signs: Last Vital Signs Temp 98.2 F 05/02/22 03:59 Pulse 72 05/02/22 11:58 Resp 19 05/02/22 11:58 BP 136/56 L 05/02/22 11:58 Pulse Ox 97 05/02/22 11:58 O2 Del Method 05/02/22 11:58 O2 Flow Rate 2.5 05/02/22 08:30 Oxygen Flow Rate 3 05/02/22 03:48 BMI result Body Mass Index 30.8 General: no acute distress HEENT: atraumatic Neck: normal to visual inspection CVS: S1, S2, RRR Resp: CTA bilateral Chest: non tender GI: soft, non tender, non distended : no CVA tenderness Skin: no rashes Extremities: 2-3+ edema Neuro: Oriented X3, very poor short-term memory, grossly intact Psych: cooperative Results Labs CBC and Chem 7: 05/02/22 07:42 05/02/22 07:42 Labs: Laboratory Results - last 24 hr 05/02/22 05/02/22 05/02/22 07:42 07:42 07:42 MCV 89.8 MCH 28.6 MCHC 31.9 RDW 15.8 Plt Count 239 MPV 12.1 Immature Gran % (Auto) 1.0 H Neut % (Auto) 83.8 H Lymph % (Auto) 6.6 L [place] % (Auto) 8.1 Eos % (Auto) 0.4 Baso % (Auto) 0.1 Lymph # (Auto) 1.0 L [place] # (Auto) 1.2 Eos # (Auto) 0.1 Baso # (Auto) 0.0 Abs Immat Gran (auto) 0.15 H Absolute Neuts (auto) 12.1 H Absolute Nucleated RBC 0.000 Nucleated RBC % (auto) 0.0 PT INR VBG pH VBG pCO2 VBG pO2 VBG HCO3 VBG O2 Saturation VBG Base Excess Anion Gap 15 Estim Creat Clear Calc 67.5 Estimated GFR > 60 Random Glucose 91 Lactic Acid Calcium 9.1 Magnesium 2.2 Total Bilirubin 1.3 H Direct Bilirubin 0.6 H AST 16 ALT 16 Alkaline Phosphatase 75 D Total Creatine Kinase 22 L Troponin I High Sens 17.5 H D B-Natriuretic Peptide 174 H Total Protein 5.8 L Albumin 3.7 Lipase 23 Urine Color Urine Appearance Urine pH Ur Specific [place] Urine Protein Urine Glucose (UA) Urine Ketones Urine Blood Urine Nitrite Ur Leukocyte Esterase Urine RBC Urine WBC Ur Squamous Epith Cells Calcium Oxalate Crystal Urine Bacteria Hyaline Casts COVID-19 ([facility]) COVID-19 Clin Com 05/02/22 05/02/22 05/02/22 07:42 07:59 07:59 MCV MCH MCHC RDW Plt Count MPV Immature Gran % (Auto) Neut % (Auto) Lymph % (Auto) [place] % (Auto) Eos % (Auto) Baso % (Auto) Lymph # (Auto) [place] # (Auto) Eos # (Auto) Baso # (Auto) Abs Immat Gran (auto) Absolute Neuts (auto) Absolute Nucleated RBC Nucleated RBC % (auto) PT 42.9 H INR 3.5 H VBG pH VBG pCO2 VBG pO2 VBG HCO3 VBG O2 Saturation VBG Base Excess Anion Gap Estim Creat Clear Calc Estimated GFR Random Glucose Lactic Acid 0.6 Calcium Magnesium Total Bilirubin Direct Bilirubin AST ALT Alkaline Phosphatase Total Creatine Kinase Troponin I High Sens B-Natriuretic Peptide Total Protein Albumin Lipase Urine Color Urine Appearance Urine pH Ur Specific [place] Urine Protein Urine Glucose (UA) Urine Ketones Urine Blood Urine Nitrite Ur Leukocyte Esterase Urine RBC Urine WBC Ur Squamous Epith Cells Calcium Oxalate Crystal Urine Bacteria Hyaline Casts COVID-19 ([facility]) Negative COVID-19 Clin Com See Note 05/02/22 05/02/22 05/02/22 08:03 08:33 09:47 MCV MCH MCHC RDW Plt Count MPV Immature Gran % (Auto) Neut % (Auto) Lymph % (Auto) [place] % (Auto) Eos % (Auto) Baso % (Auto) Lymph # (Auto) [place] # (Auto) Eos # (Auto) Baso # (Auto) Abs Immat Gran (auto) Absolute Neuts (auto) Absolute Nucleated RBC Nucleated RBC % (auto) PT INR VBG pH 7.47 H VBG pCO2 46 VBG pO2 62 VBG HCO3 34 H VBG O2 Saturation 91.0 VBG Base Excess 9.9 Anion Gap Estim Creat Clear Calc Estimated GFR Random Glucose Lactic Acid Calcium Magnesium Total Bilirubin Direct Bilirubin AST ALT Alkaline Phosphatase Total Creatine Kinase Troponin I High Sens 16.1 B-Natriuretic Peptide Total Protein Albumin Lipase Urine Color Yellow Urine Appearance Cloudy Urine pH 7.0 Ur Specific [place] 1.020 Urine Protein 30 (1+) H Urine Glucose (UA) Negative Urine Ketones Trace Urine Blood Large (3+) H Urine Nitrite Negative Ur Leukocyte Esterase Small (1+) H Urine RBC >20 H Urine WBC 6-10 H Ur Squamous Epith Cells 3-5 Calcium Oxalate Crystal Present Urine Bacteria Trace Hyaline Casts 0-2 COVID-19 ([facility]) COVID-19 Clin Com Imaging Radiologist's Impressions: Impressions Chest X-Ray 05/02/22 08:16 IMPRESSION: Mild cardiomegaly, pulmonary vascular congestion and trace pleural effusions. The findings are suggestive of mild congestive heart failure. Overall, no significant change compared to 04/21/2022. Cervical Spine CT 05/02/22 08:43 IMPRESSION: * No intracranial hemorrhage or other acute intracranial pathology compared to 08/27/2019. * Chronic moderate cerebral atrophy and chronic small vessel ischemic changes of supratentorial white matter. * No fracture or malalignment in the chronically degenerated cervical spine. Head CT 05/02/22 08:43 IMPRESSION: * No intracranial hemorrhage or other acute intracranial pathology compared to 08/27/2019. * Chronic moderate cerebral atrophy and chronic small vessel ischemic changes of supratentorial white matter. * No fracture or malalignment in the chronically degenerated cervical spine. Assessment and Plan (1) Acute encephalopathy: Status: Acute Plan 87F pmh hypoxic respiratory failure secondary to COPD on 2.5 L home oxygen, chronic atrial fibrillation on Coumadin, chronic diastolic CHF, chronic Nelson for urinary retention, hypertension, presented with confusion Metabolic encephalopathy Possibly due to urinary tract infection associated with chronic Nelson versus medication induced delirium Continue ceftriaxone Follow-up cultures Chronic hypoxic respiratory failure secondary to COPD Continue inhalers Acute on chronic diastolic CHF IV Lasix, monitor electrolytes Chronic atrial fibrillation Diltiazem, Coumadin, monitor INR Morbid obesity Weight loss recommended Hypertension Continue diltiazem and terazosin DNR/DNI Patient with significant change in mental status without clear etiology, high risk for further decompensation due to advanced age, COPD, CHF, AFib, morbid obesity, therefore, expected require at least 2 midnights in the hospital Quality Stroke Does the patient have a stroke diagnosis?: No VTE Prior VTE?: No VTE Risk Level:: Medical - moderate - high VTE Device Contraindication: Treatment Not Indicated VTE Drug Contraindication: N/A - Med Ordered
[2022-05-02 13:06] LABS: Thyroid Stimulating Hormone 1.31 uIU/mL (0.32-4.0)
[2022-05-02] MEDS: 0.9 % Sodium Chloride Flush 3 ML SYRINGE IVFLUSH (17:24)
[2022-05-02] MEDS: Furosemide 40 MG/4 ML VIAL IVPUSH (17:24)
--- NOTE | 2022-05-02 21:27 | PC.NURSE ---
Nurse to nurse report given to JOAN Haskins at S3. Patient to be transported to room 368 by a hospital transporter.
[2022-05-02] MEDS: Acetaminophen 325 MG TABLET 650 MG PO (22:29)
[2022-05-02] MEDS: Doxazosin Mesylate 1 MG TABLET PO (22:29)
[2022-05-03 03:53] VITALS: BP 150/75; PULSE 62; RESP 18; TEMP 36.6; O2SAT 97
[2022-05-03] MEDS: Omeprazole 20 MG CAPSULE.DR PO (06:31)
[2022-05-03 06:52] LABS: Hematocrit 31.7 % (37.0-47.0); Hemoglobin 10.3 g/dl (12.0-16.0); Mean Corpuscular HGB Conc 32.5 g/dl (31.0-35.0); Mean Corpuscular Hemoglobin 29.4 pg (27.0-33.0); Mean Corpuscular Volume 90.6 fL (80.0-98.0); Mean Platelet Volume 12.3 fL (9.4-12.3); Platelet Count 232 X10*3/uL (160-400); Red Cell Distribution Width 15.8 % (11.0-16.0); White Blood Count 12.8 X10*3/uL (4.8-10.8)
[2022-05-03 07:05] LABS: Alanine Aminotransferase 15 U/L (0-31); Albumin Level 3.6 g/dL (3.5-5.0); Alkaline Phosphatase 72 U/L (39-117); Anion Gap 11 (12-20); Aspartate Amino Transferase 15 U/L (5-31); Bilirubin Direct 0.5 mg/dL (0.0-0.5); Bilirubin Total 0.8 mg/dL (0.0-1.0); Blood Urea Nitrogen 19 mg/dL (9-16); Carbon Dioxide 33 mmol/L (22-29); Chloride 101 mmol/L (96-108); Creatinine Clr Calc Pharmacy 73.2; Estimated Glomerular Filt Rate > 60; Glucose Fasting 80 mg/dL (60-99); INTERNATIONAL NORM RATIO 3.4 (0.9-1.1); Magnesium 2.1 mg/dL (1.6-2.6); Potassium 3.4 mmol/L (3.3-5.1); Prothrombin Time 41.6 SEC (10.0-13.1); Sodium 142 mmol/L (135-145); Total Protein 5.6 g/dL (6.5-8.0)
[2022-05-03 07:45] VITALS: BP 130/85; PULSE 65; RESP 20; TEMP 35.8; O2SAT 95
[2022-05-03] MEDS: cefTRIAXone sodium 1 GM in 0.9 % Sodium Chloride 50 ML IV (09:06)
[2022-05-03] MEDS: Levothyroxine Sodium 88 MCG TABLET PO (09:07)
[2022-05-03] MEDS: 0.9 % Sodium Chloride Flush 3 ML SYRINGE IVFLUSH ×3 (09:07→20:04)
[2022-05-03] MEDS: dilTIAZem HCL CD 120 MG CAP.ER.DEG PO (09:07)
[2022-05-03] MEDS: Furosemide 40 MG/4 ML VIAL IVPUSH ×2 (09:07→17:49)
--- NOTE | 2022-05-03 10:07 | MHC.CM.PN ---
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 AFTER BEING DISCHARGED FROM [facility] HE REPORTS HER EXPERIENCE AT [facility] WAS HORRIBLE AND HE WOULD RATE IT HALF A STAR HE SAYS SHE HAS LOW PRESSURE FIRER SERVICES VIA [facility] COMING IN TWICE DAILY, TWO AM HOURS AND TWO PM SHE IS ALSO ACTIVE WITH [facility] PT HAS A WALKER, TOILET RISER AND HOME O2 FROM LOCATED WITHIN [facility] AND [facility] ON FILE PCP: BULMARO SALINAS VAX: PFIZER X 3 AND MRNA X 1 IMM DELIVERED TO PT AND NEPHEW PTS NEPHEW REPORTS THE DC PLAN WOULD BE TO RETURN HOME AND RESUME VNA AND LOW PRESSURE FIRER SERVICES HE REPORTS THE LOW PRESSURE FIRER'S ASSIST WITH THE REHAB AND BETWEEN THEM AND THE VNA, SHE GETS MORE THERAPY AT HOME THAN IN A FACILITY PTS NEPHEW WILL TRANSPORT
[2022-05-03 11:24] VITALS: BP 146/67; PULSE 63; RESP 18; TEMP 36.2; O2SAT 99
--- NOTE | 2022-05-03 11:43 | HO.PM.IMPN ---
Subjective Subjective Date of Service: 05/03/22 Interval History: cc: ams interval history:more alert today Cardiovascular Cardiovascular: Reports no additional cardiovascular complaints Respiratory Respiratory: Reports no additional respiratory complaints Physical Exam Vital Signs: Vital Signs: Last Vital Signs Temp 97.2 F 05/03/22 11:24 Pulse 63 05/03/22 11:24 Resp 18 05/03/22 11:24 BP 146/67 H 05/03/22 11:24 Pulse Ox 99 05/03/22 11:24 O2 Del Method 05/03/22 11:24 O2 Flow Rate 3 05/03/22 11:24 Oxygen Flow Rate 3 05/02/22 03:48 BMI result Body Mass Index 30.8 General: AO X 3, no acute distress Resp: diminished bilateral, no accessory muscles used CVS: S1,S2,RRR, 1-2+ edema GI: soft, non tender, non distended Neuro: motor grossly intact, alert Psych: appropriate affect, appropriate insight Objective Data Active Medications Acetaminophen (Acetaminophen 325 Mg Tablet) 650 mg PO Q6H PRN PRN Reason: pain,fever Last Admin: 05/02/22 22:29 Dose: 650 mg Documented By: GIOVANA Albuterol Sulfate (Albuterol Sulfate 90 Mcg 8 Gm Inhaler) 2 puff INHALE RQ6H PRN PRN Reason: shortness of breath or wheezing Bisacodyl (Bisacodyl 10 Mg Supp.Rect) 10 mg MA DAILY PRN PRN Reason: Constipation Diltiazem HCl (Diltiazem Hcl Cd 120 Mg Cap.Er.Deg) 120 mg PO DAILY [facility]; Protocol Last Admin: 05/03/22 09:07 Dose: 120 mg Documented By: FRANSISCO Doxazosin Mesylate (Doxazosin Mesylate 1 Mg Tablet) 1 mg PO BEDTIME [facility] Last Admin: 05/02/22 22:29 Dose: 1 mg Documented By: GIOVANA Fluticasone/Vilanterol (Fluticasone/Vilanterol 100/25 Blst.W.Dev) 1 puff INHALE RDAILY [facility] Last Admin: 05/03/22 08:22 Dose: Not Given Documented By: SANCHEZ Non-Admin Reason: Med Not Available Furosemide (Furosemide 40 Mg/4 Ml Vial) 40 mg IVPUSH BID@0900,1800 [facility]; Protocol Last Admin: 05/03/22 09:07 Dose: 40 mg Documented By: FRANSISCO Ceftriaxone Sodium 1 gm/ (Sodium Chloride) 50 mls @ 100 mls/hr IV Q24H [facility] Last Infusion: 05/03/22 09:49 Dose: 0 mls/hr Documented By: FRANSISCO Levothyroxine Sodium (Levothyroxine Sodium 88 Mcg Tablet) 88 mcg PO DAILY [facility] Last Admin: 05/03/22 09:07 Dose: 88 mcg Documented By: FRANSISCO Omeprazole (Omeprazole 20 Mg Capsule.) 20 mg PO DAILY@0630 [facility] Last Admin: 05/03/22 06:31 Dose: 20 mg Documented By: GIOVANA Pharmacy Consult (Consult Rx Perform Med Rec) 1 each MISCELLANE ONCE PRN PRN Reason: Consult order Sodium Chloride (0.9 % Sodium Chloride Flush 3 Ml Syringe) 3 ml IVFLUSH QSHIFT [facility] Last Admin: 05/03/22 09:07 Dose: 3 ml Documented By: FRANSISCO Warfarin Sodium (Warfarin Sodium 2.5 Mg Tablet) 2.5 mg PO SuTuThSa@1800 [facility] Warfarin Sodium (Warfarin Sodium 5 Mg Tablet) 5 mg PO MOWEFR@1800 [facility] Labs CBC & Chem 7: 05/03/22 05:24 05/03/22 05:24 Labs: Laboratory Results - last 24 hr 05/02/22 05/03/22 05/03/22 07:42 05:24 05:24 MCV 90.6 MCH 29.4 MCHC 32.5 RDW 15.8 Plt Count 232 MPV 12.3 Absolute Nucleated RBC 0.000 Nucleated RBC % (auto) 0.0 PT 41.6 H INR 3.4 H Anion Gap Estim Creat Clear Calc Estimated GFR Fasting Glucose Calcium Magnesium Total Bilirubin Direct Bilirubin AST ALT Alkaline Phosphatase Total Protein Albumin TSH 1.31 05/03/22 05:24 MCV MCH MCHC RDW Plt Count MPV Absolute Nucleated RBC Nucleated RBC % (auto) PT INR Anion Gap 11 L Estim Creat Clear Calc 73.2 Estimated GFR > 60 Fasting Glucose 80 Calcium 9.0 Magnesium 2.1 Total Bilirubin 0.8 Direct Bilirubin 0.5 AST 15 ALT 15 Alkaline Phosphatase 72 Total Protein 5.6 L Albumin 3.6 TSH Microbiology Microbiology Results: Microbiology 05/02/22 07:42 Blood Culture - Preliminary Blood - Venous No growth after 24 hours. 05/02/22 07:42 Blood Culture - Preliminary Blood - Venous No growth after 24 hours. Assessment and Plan (1) Acute encephalopathy: Status: Acute Plan 87F pmh hypoxic respiratory failure secondary to COPD on 2.5 L home oxygen, chronic atrial fibrillation on Coumadin, chronic diastolic CHF, chronic Nelson for urinary retention, hypertension, presented with confusion Metabolic encephalopathy Possibly due to urinary tract infection associated with chronic Nelson versus medication induced delirium Continue ceftriaxone Follow-up cultures - urine growing gpcs Chronic hypoxic respiratory failure secondary to COPD Continue inhalers Acute on chronic diastolic CHF IV Lasix, monitor electrolytes Chronic atrial fibrillation Diltiazem, Coumadin, monitor INR Morbid obesity Weight loss recommended Hypertension Continue diltiazem and terazosin DNR/DNI reason for continued hospitalization:needs iv diuresis, awatiing cultures Quality Stroke Does the patient have a stroke diagnosis?: No VTE Prior VTE?: No VTE Risk Level:: Medical - moderate - high VTE Device Contraindication: Treatment Not Indicated VTE Drug Contraindication: N/A - Med Ordered
--- NOTE | 2022-05-03 13:50 | MHC.CLN ---
NUTRITION VISITED WITH PATIENT AND HER SON. REPORTS THAT HAD BEEN EATING WELL AT HOME. REQUESTED CARDIAC DIET AND ORDER CHANGED. SHOWS WEIGHT LOSS OF 9.6% X 9 DAYS (PRIOR ADMISSION). HAD DX CHF AND SUSPECT THAT CHANGE IN FLUID STATUS LIKELY CONTRIBUTOR TO WEIGHT LOSS. SEEN BY [employer]ALE PROCESSING TECHNICIAN AND REPORTED CONCERNS WITH SWALLOWING. DIET=CARDIAC, PUREE WITH NECTAR THICK LIQUIDS. NO ADDITIONAL NUTRITION INTERVENTIONS AT THIS TIME. FOLLOW UP WEEKLY FOR INTAKE.
--- NOTE | 2022-05-03 13:59 | MHC.SL.SWA ---
Addendum entered and electronically signed by Sheron Swenson MA, CCC-[employer] 05/03/22 19:15: D.S. Original Note: Speech Pathologist Impression: Oropharyngeal Dysphagia Risk of Aspiration Due to: Medically Fragile Poor PO Intake Weak Voice Dysphasia Diet Status: Downgrade solids and liquids Liquid Consistency and Strategies for Safe Swallow: Liquid Intake Recommendation: [place] Thick Liquid Intake Strategies: Small Sips No Straws Solid Food Consistency: Dietary Recommendations: Pureed (NDD1) Additional Modifications to Solid Foods: Oral Medication Intake: Crushed with Puree Please contact the pharmacy regarding appropriate crushable or liquid drug formulations that are available whenever modified delivery is recommended. Compensatory Strategies and Precautions to be Taken for Safe Swallow: Sitting Upright (90 deg) No Straw Liquids from Cup Liquids from Spoon Small Bites and Sips Alternate Liquids/Solids Supervision While Eating and Drinking for Safe Swallow: Total Supervision (1:1) Swallowing Recommended Treatments: Compens. Strategy Educat. Recommendation for Speech: Inpatient Speech Therapy Modified Barium Swallow Study - Inpatient Modified Barium Swallow Study - Outpatient Comment: Pt presents with anxiety regarding swallowing and choking. Pt tolerated a variety of solids and liquids with no overt clinical s/s of aspiration including puree, ground solids, nectar thick, honey thick liquid. Pt intermittently reported feeling like she was going to choke or was choking but did not present with any s/s of aspiration. Recommend PUREED solids (NDD1), NECTAR THICK liquids, pills CRUSHED. Recommend full supervision d/t pt anxiety and reports of choking sensation. If pt continues to report of sensation, recommend MBSS as inpatient or outpatient. Recommend dietary consultation d/t concern of inadequate nutrition/hydration with pt refusing PO. Recommend GI consult d/t pt reporting symptoms of reflux. [employer] C[employer] Clinican/Clinical Fellow: Yes: Clotilde Reno M.A., CF-[employer] Supervisory Statement: I have reviewed and agree with the student/clinical fellow's documentation: Speech Language Pathologist:
[2022-05-03 15:15] VITALS: BP 153/61; PULSE 61; RESP 16; TEMP 36.2; O2SAT 99
[2022-05-03] MEDS: Doxazosin Mesylate 1 MG TABLET PO (19:37)
[2022-05-03 23:56] VITALS: BP 142/63; PULSE 67; RESP 18; TEMP 36.4; O2SAT 95
--- NOTE | 2022-05-04 05:01 | PM.EVENT ---
Event Note Date of Service: 05/04/22 Event Note: patient complaining of urinary retention found to have 470 cc of urine in the bladder. Complaining of pressure. Nelson catheter replaced
[2022-05-04] MEDS: Omeprazole 20 MG CAPSULE.DR PO (05:08)
--- NOTE | 2022-05-04 05:13 | PC.NURSE ---
New order from MD Antunez to straight cath PT due to PT C/O abd pressure and bladder scanned for 467cc.
--- NOTE | 2022-05-04 06:04 | PC.NURSE ---
PT stright cathed for 450cc. New order to insert Nelson cath if PT continues to retain urine.
[2022-05-04 07:42] VITALS: BP 169/70; PULSE 76; RESP 17; TEMP 36.1; O2SAT 93
[2022-05-04 08:24] LABS: Hematocrit 33.7 % (37.0-47.0); Mean Corpuscular HGB Conc 32.6 g/dl (31.0-35.0); Mean Corpuscular Hemoglobin 29.6 pg (27.0-33.0); Mean Corpuscular Volume 90.6 fL (80.0-98.0); Platelet Count 220 X10*3/uL (160-400); Red Blood Count 3.72 X10*6/uL (4.20-5.50); Red Cell Distribution Width 15.7 % (11.0-16.0); White Blood Count 14.9 X10*3/uL (4.8-10.8)
[2022-05-04 08:33] LABS: INTERNATIONAL NORM RATIO 3.6 (0.9-1.1); Prothrombin Time 43.9 SEC (10.0-13.1)
[2022-05-04 08:43] LABS: Anion Gap 18 (12-20); Blood Urea Nitrogen 18 mg/dL (9-16); Calcium 9.3 mg/dL (8.4-10.2); Carbon Dioxide 29 mmol/L (22-29); Chloride 99 mmol/L (96-108); Creatinine Clr Calc Pharmacy 73.2; Estimated Glomerular Filt Rate > 60; Glucose Fasting 90 mg/dL (60-99); Potassium 3.1 mmol/L (3.3-5.1); Sodium 143 mmol/L (135-145)
[2022-05-04] MEDS: cefTRIAXone sodium 1 GM in 0.9 % Sodium Chloride 50 ML IV (09:34)
[2022-05-04] MEDS: dilTIAZem HCL CD 120 MG CAP.ER.DEG PO (09:35)
[2022-05-04] MEDS: Levothyroxine Sodium 88 MCG TABLET PO (09:36)
[2022-05-04] MEDS: 0.9 % Sodium Chloride Flush 3 ML SYRINGE IVFLUSH (09:39)
--- NOTE | 2022-05-04 10:12 | P.PNIM_ITS ---
Subjective Subjective Date of Service: 05/04/22 Interval History: cc: ams interval history:delerious this morning Cardiovascular Cardiovascular: Reports no additional cardiovascular complaints Respiratory Respiratory: Reports no additional respiratory complaints Physical Exam Vital Signs: Vital Signs: Last Vital Signs Temp 96.9 F 05/04/22 07:42 Pulse 76 05/04/22 07:42 Resp 17 05/04/22 07:42 BP 169/70 H 05/04/22 07:42 Pulse Ox 93 05/04/22 07:42 O2 Del Method 05/04/22 07:42 O2 Flow Rate 3 05/04/22 07:42 Oxygen Flow Rate 3 05/02/22 03:48 BMI result Body Mass Index 30.8 General: AO X 3, no acute distress Resp: diminished bilateral, no accessory muscles used CVS: S1,S2,RRR, 1-2+ edema GI: soft, non tender, non distended Neuro: motor grossly intact, alert Psych: appropriate affect, appropriate insight Objective Data Active Medications Acetaminophen (Acetaminophen 325 Mg Tablet) 650 mg PO Q6H PRN PRN Reason: pain,fever Last Admin: 05/02/22 22:29 Dose: 650 mg Documented By: GIOVANA Albuterol Sulfate (Albuterol Sulfate 90 Mcg 8 Gm Inhaler) 2 puff INHALE RQ6H PRN PRN Reason: shortness of breath or wheezing Bisacodyl (Bisacodyl 10 Mg Supp.Rect) 10 mg [place] DAILY PRN PRN Reason: Constipation Diltiazem HCl (Diltiazem Hcl Cd 120 Mg Cap.Er.Deg) 120 mg PO DAILY [facility]; Protocol Last Admin: 05/04/22 09:35 Dose: 120 mg Documented By: PATRICE Doxazosin Mesylate (Doxazosin Mesylate 1 Mg Tablet) 1 mg PO BEDTIME [facility] Last Admin: 05/03/22 19:37 Dose: 1 mg Documented By: MORRINHadley Fluticasone/Vilanterol (Fluticasone/Vilanterol 100/25 Blst.W.Dev) 1 puff INHALE RDAILY [facility] Last Admin: 05/03/22 08:22 Dose: Not Given Documented By: SANCHEZ Non-Admin Reason: Med Not Available Furosemide (Furosemide 20 Mg Tablet) 20 mg PO DAILY [facility]; Protocol Ceftriaxone Sodium 1 gm/ (Sodium Chloride) 50 mls @ 100 mls/hr IV Q24H [facility] Last Admin: 05/04/22 09:34 Dose: 100 mls/hr Documented By: PATRICE Levothyroxine Sodium (Levothyroxine Sodium 88 Mcg Tablet) 88 mcg PO DAILY [facility] Last Admin: 05/04/22 09:36 Dose: 88 mcg Documented By: PATRICE Omeprazole (Omeprazole 20 Mg Capsule.) 20 mg PO DAILY@0630 [facility] Last Admin: 05/04/22 05:08 Dose: 20 mg Documented By: OLIVIA Pharmacy Consult (Consult Rx Perform Med Rec) 1 each MISCELLANE ONCE PRN PRN Reason: Consult order Sodium Chloride (0.9 % Sodium Chloride Flush 3 Ml Syringe) 3 ml IVFLUSH QSHIFT [facility] Last Admin: 05/04/22 09:39 Dose: 3 ml Documented By: PATRICE Warfarin Sodium (Warfarin Sodium 2.5 Mg Tablet) 2.5 mg PO SuTuThSa@1800 [facility] Warfarin Sodium (Warfarin Sodium 5 Mg Tablet) 5 mg PO MOWEFR@1800 [facility] Labs CBC & Chem 7: 05/04/22 08:07 05/04/22 08:07 Labs: Laboratory Results - last 24 hr 05/04/22 05/04/22 05/04/22 08:07 08:07 08:07 MCV 90.6 MCH 29.6 MCHC 32.6 RDW 15.7 Plt Count 220 MPV 12.0 Absolute Nucleated RBC 0.000 Nucleated RBC % (auto) 0.0 PT 43.9 H INR 3.6 H Anion Gap 18 Estim Creat Clear Calc 73.2 Estimated GFR > 60 Fasting Glucose 90 Calcium 9.3 Microbiology Microbiology Results: Microbiology 05/02/22 07:42 Blood Culture - Preliminary Blood - Venous No growth after 48 hours. 05/02/22 07:42 Blood Culture - Preliminary Blood - Venous No growth after 48 hours. Assessment and Plan (1) Acute encephalopathy: Status: Acute Plan 87F pmh hypoxic respiratory failure secondary to COPD on 2.5 L home oxygen, chronic atrial fibrillation on Coumadin, chronic diastolic CHF, chronic Nelson for urinary retention, hypertension, presented with confusion Metabolic encephalopathy Possibly due to urinary tract infection associated with chronic Nelson versus medication induced delirium Continue ceftriaxone Follow-up cultures - urine growing enterococcus faecium and faecalis, follow up sensitivities Chronic hypoxic respiratory failure secondary to COPD Continue inhalers Acute on chronic diastolic CHF will change to po lasix, monitor electrolytes hypokalemia replace and monitor Chronic atrial fibrillation Diltiazem, Coumadin, monitor INR Morbid obesity Weight loss recommended Hypertension Continue diltiazem and terazosin DNR/DNI reason for continued hospitalization:managing delerium awatiing cultures Quality Stroke Does the patient have a stroke diagnosis?: No VTE Prior VTE?: No VTE Risk Level:: Medical - moderate - high VTE Device Contraindication: Treatment Not Indicated VTE Drug Contraindication: N/A - Med Ordered
[2022-05-04] MEDS: Fluticasone/Vilanterol 100/25 BLST.W.DEV 1 PUFF INHALE (10:17)
[2022-05-04 10:18] VITALS: PULSE 63; RESP 20; O2SAT 97
[2022-05-04] MEDS: Potassium Chloride ER 20 MEQ TAB.ER.PRT 40 MEQ PO (10:42)
[2022-05-04] MEDS: Furosemide 20 MG TABLET PO (10:43)
[2022-05-04 11:32] VITALS: BP 160/78; PULSE 69; RESP 17; TEMP 36.1; O2SAT 97
[2022-05-04 15:43] VITALS: BP 150/65; PULSE 83; RESP 19; TEMP 36.2; O2SAT 94
[2022-05-04 19:48] VITALS: BP 130/58; PULSE 83; RESP 18; TEMP 36.3; O2SAT 93
[2022-05-04] MEDS: Doxazosin Mesylate 1 MG TABLET PO (20:35)
[2022-05-05] VITALS: BP 145/64; PULSE 72; RESP 17; TEMP 36.5; O2SAT 94
[2022-05-05] MEDS: 0.9 % Sodium Chloride Flush 3 ML SYRINGE IVFLUSH ×3 (01:28→19:51)
[2022-05-05] MEDS: Omeprazole 20 MG CAPSULE.DR PO (06:09)
[2022-05-05 06:51] LABS: Hemoglobin 10.4 g/dl (12.0-16.0); Mean Corpuscular HGB Conc 32.5 g/dl (31.0-35.0); Mean Corpuscular Hemoglobin 28.9 pg (27.0-33.0); Mean Corpuscular Volume 88.9 fL (80.0-98.0); Mean Platelet Volume 12.3 fL (9.4-12.3); Platelet Count 222 X10*3/uL (160-400); White Blood Count 14.3 X10*3/uL (4.8-10.8)
[2022-05-05 06:57] LABS: INTERNATIONAL NORM RATIO 3.7 (0.9-1.1); Prothrombin Time 44.7 SEC (10.0-13.1)
[2022-05-05 07:23] LABS: Anion Gap 17 (12-20); Blood Urea Nitrogen 21 mg/dL (9-16); Calcium 9.2 mg/dL (8.4-10.2); Carbon Dioxide 29 mmol/L (22-29); Chloride 102 mmol/L (96-108); Creatinine Clr Calc Pharmacy 71.2; Estimated Glomerular Filt Rate > 60; Glucose Fasting 98 mg/dL (60-99); Potassium 3.6 mmol/L (3.3-5.1); Sodium 144 mmol/L (135-145)
[2022-05-05 07:31] VITALS: BP 123/52; PULSE 75; RESP 18; TEMP 36.1; O2SAT 95
--- NOTE | 2022-05-05 08:32 | HO.PM.IMPN ---
Subjective Subjective Date of Service: 05/05/22 Interval History: cc: ams interval history:waxing and waning delerium Cardiovascular Cardiovascular: Reports no additional cardiovascular complaints Respiratory Respiratory: Reports no additional respiratory complaints Physical Exam Vital Signs: Vital Signs: Last Vital Signs Temp 97.0 F 05/05/22 07:31 Pulse 75 05/05/22 07:31 Resp 18 05/05/22 07:31 BP 123/52 L 05/05/22 07:31 Pulse Ox 95 05/05/22 07:31 O2 Del Method 05/05/22 07:31 O2 Flow Rate 3 05/05/22 07:31 Oxygen Flow Rate 3 05/02/22 03:48 BMI result Body Mass Index 30.8 General: AO X 3, no acute distress Resp: diminished bilateral, no accessory muscles used CVS: S1,S2,RRR, 1-2+ edema GI: soft, non tender, non distended Neuro: motor grossly intact, alert Psych: appropriate affect, impaired insight Objective Data Active Medications Acetaminophen (Acetaminophen 325 Mg Tablet) 650 mg PO Q6H PRN PRN Reason: pain,fever Last Admin: 05/02/22 22:29 Dose: 650 mg Documented By: GIOVANA Albuterol Sulfate (Albuterol Sulfate 90 Mcg 8 Gm Inhaler) 2 puff INHALE RQ6H PRN PRN Reason: shortness of breath or wheezing Bisacodyl (Bisacodyl 10 Mg Supp.Rect) 10 mg [place] DAILY PRN PRN Reason: Constipation Diltiazem HCl (Diltiazem Hcl Cd 120 Mg Cap.Er.Deg) 120 mg PO DAILY [facility]; Protocol Last Admin: 05/04/22 09:35 Dose: 120 mg Documented By: PATRICE Doxazosin Mesylate (Doxazosin Mesylate 1 Mg Tablet) 1 mg PO BEDTIME [facility] Last Admin: 05/04/22 20:35 Dose: 1 mg Documented By: DILLAN Fluticasone/Vilanterol (Fluticasone/Vilanterol 100/25 Blst.W.Dev) 1 puff INHALE RDAILY [facility] Last Admin: 05/04/22 10:17 Dose: 1 puff Documented By: STEVEN Furosemide (Furosemide 20 Mg Tablet) 20 mg PO DAILY [facility]; Protocol Last Admin: 05/04/22 10:43 Dose: 20 mg Documented By: PATRICE Ceftriaxone Sodium 1 gm/ (Sodium Chloride) 50 mls @ 100 mls/hr IV Q24H [facility] Last Infusion: 05/04/22 10:36 Dose: 0 mls/hr Documented By: PATRICE Levothyroxine Sodium (Levothyroxine Sodium 88 Mcg Tablet) 88 mcg PO DAILY [facility] Last Admin: 05/04/22 09:36 Dose: 88 mcg Documented By: PATRICE Omeprazole (Omeprazole 20 Mg Deon.) 20 mg PO DAILY@0630 [facility] Last Admin: 05/05/22 06:09 Dose: 20 mg Documented By: DILLAN Pharmacy Consult (Consult Rx Perform Med Rec) 1 each MISCELLANE ONCE PRN PRN Reason: Consult order Sodium Chloride (0.9 % Sodium Chloride Flush 3 Ml Syringe) 3 ml IVFLUSH QSHIFT [facility] Last Admin: 05/05/22 01:28 Dose: 3 ml Documented By: DILLAN Warfarin Sodium (Warfarin Sodium 2.5 Mg Tablet) 2.5 mg PO SuTuThSa@1800 [facility] Warfarin Sodium (Warfarin Sodium 5 Mg Tablet) 5 mg PO MOWEFR@1800 [facility] Labs CBC & Chem 7: 05/05/22 05:46 05/05/22 05:46 Labs: Laboratory Results - last 24 hr 05/04/22 05/04/22 05/05/22 08:07 08:07 05:46 MCV MCH MCHC RDW Plt Count MPV Absolute Nucleated RBC Nucleated RBC % (auto) PT 43.9 H 44.7 H INR 3.6 H 3.7 H Anion Gap 18 Estim Creat Clear Calc 73.2 Estimated GFR > 60 Fasting Glucose 90 Calcium 9.3 05/05/22 05/05/22 05:46 05:46 MCV 88.9 MCH 28.9 MCHC 32.5 RDW 16.0 Plt Count 222 MPV 12.3 Absolute Nucleated RBC 0.000 Nucleated RBC % (auto) 0.0 PT INR Anion Gap 17 Estim Creat Clear Calc 71.2 Estimated GFR > 60 Fasting Glucose 98 Calcium 9.2 Microbiology Microbiology Results: Microbiology 05/02/22 07:42 Blood Culture - Preliminary Blood - Venous No growth after 48 hours. 05/02/22 07:42 Blood Culture - Preliminary Blood - Venous No growth after 48 hours. Assessment and Plan (1) Acute encephalopathy: Status: Acute Plan 87F pmh hypoxic respiratory failure secondary to COPD on 2.5 L home oxygen, chronic atrial fibrillation on Coumadin, chronic diastolic CHF, chronic Nelson for urinary retention, hypertension, presented with confusion Metabolic encephalopathy Possibly due to urinary tract infection associated with chronic Nelson versus medication induced delirium Continue ceftriaxone Follow-up cultures - urine growing enterococcus faecium and faecalis Chronic hypoxic respiratory failure secondary to COPD Continue inhalers Acute on chronic diastolic CHF diuresed well, now on po lasix, monitor electrolytes hypokalemia replaced Chronic atrial fibrillation Diltiazem, Coumadin, monitor INR Morbid obesity Weight loss recommended Hypertension Continue diltiazem and terazosin DNR/DNI reason for continued hospitalization:managing delerium Quality Stroke Does the patient have a stroke diagnosis?: No VTE Prior VTE?: No VTE Risk Level:: Medical - moderate - high VTE Device Contraindication: Treatment Not Indicated VTE Drug Contraindication: N/A - Med Ordered
[2022-05-05] MEDS: Fluticasone/Vilanterol 100/25 BLST.W.DEV 1 PUFF INHALE (08:52)
[2022-05-05 08:54] VITALS: PULSE 65; RESP 20; O2SAT 94
[2022-05-05] MEDS: cefTRIAXone sodium 1 GM in 0.9 % Sodium Chloride 50 ML IV (09:23)
[2022-05-05] MEDS: dilTIAZem HCL CD 120 MG CAP.ER.DEG PO (09:23)
[2022-05-05] MEDS: Levothyroxine Sodium 88 MCG TABLET PO (09:23)
[2022-05-05] MEDS: Furosemide 20 MG TABLET PO (09:23)
[2022-05-05 11:42] VITALS: BP 133/59; PULSE 67; RESP 18; TEMP 36.4; O2SAT 95
[2022-05-05 16:00] VITALS: BP 97/49; PULSE 67; RESP 14; TEMP 36.3; O2SAT 94
[2022-05-05] MEDS: Doxazosin Mesylate 1 MG TABLET PO (19:51)
[2022-05-05] MEDS: Zolpidem Tartrate 5 MG TABLET PO (20:54)
[2022-05-06] VITALS: BP 143/62; PULSE 79; RESP 16; TEMP 36.2; O2SAT 94
[2022-05-06 03:32] VITALS: BP 123/56; PULSE 76; RESP 16; TEMP 36.6; O2SAT 94
[2022-05-06] MEDS: Omeprazole 20 MG CAPSULE.DR PO (05:43)
[2022-05-06 07:04] LABS: INTERNATIONAL NORM RATIO 3.3 (0.9-1.1); Prothrombin Time 39.8 SEC (10.0-13.1)
[2022-05-06] MEDS: Fluticasone/Vilanterol 100/25 BLST.W.DEV 1 PUFF INHALE (07:28)
[2022-05-06 07:29] VITALS: PULSE 67; RESP 18; O2SAT 95
[2022-05-06 07:51] VITALS: BP 146/66; PULSE 69; RESP 16; TEMP 36.3; O2SAT 93
--- NOTE | 2022-05-06 08:58 | PM.DS ---
DS: Providers Provider Date of Service: 05/07/22 Date of admission: 05/02/22 12:18 Primary care physician: Janelle Medina NP DS: Diagnosis Discharge Diagnosis (1) Acute encephalopathy: Status: Acute DS: Summary Hospital Course Hospital Course: from initial hpi: 87F pmh hypoxic respiratory failure secondary to COPD on 2.5 L home oxygen, chronic atrial fibrillation on Coumadin, chronic diastolic CHF, chronic Nelson for urinary retention, hypertension, recently discharged home from [facility] 04/24/2022 after hospitalization for CHF/COPD presented with vague complaints of not feeling well.? Patient believes she fell out of bed and called 911, was found in bed confused, could not remember events of the last week.? She was recently seen in the ED on 04/30 and given levofloxacin and Diflucan, but appears not to have filled scripts.? Patient's long-term memory appears to be intact, but is unable to give any reliable history over the past week.? Patient denies any pain, shortness of breath, dysuria. hospital course: Patient was admitted for metabolic encephalopathy, multifactorial, possibly due to urinary tract infection associated with chronic Nelson versus medication induced delirium in the setting of Alzheimer's dementia. Patient was given 5 days of ceftriaxone, urine cultures grew Enterococcus faecium and faecalis. Patient's mental status waxed and waned during admission, on day of discharge she is close to baseline - alert oriented x3 with poor short-term memory. For patient's chronic hypoxic respiratory failure secondary to COPD she was continued on inhalers and her baseline oxygen of 2.5 L. patient was treated for acute on chronic diastolic CHF, she was given IV Lasix and diuresed well, she was transitioned back to her p.o. Lasix 20 mg daily. She has some hypokalemia which was replaced. For chronic atrial fibrillation she was continued on diltiazem, Coumadin. For morbid obesity weight loss recommended. For hypertension she was continued on diltiazem and tear Zosyn. patient will be discharged to SNF for STR. Time Spent with Patient Time attestation: Total time spent providing and/or coordinating discharge services: Discharge coordination time: Greater than 30 minutes Quality: Safe Use of Opioids Does Pt have an Active Cancer Diagnosis on the Problem List?: No Quality: Stroke Does the patient have a stroke diagnosis?: No Physical Exam Vital Signs: Vital Signs: Last Vital Signs Temp 97.3 F 05/06/22 07:51 Pulse 69 05/06/22 07:51 Resp 16 05/06/22 07:51 BP 146/66 H 05/06/22 07:51 Pulse Ox 93 05/06/22 07:51 O2 Del Method 05/06/22 07:51 O2 Flow Rate 3.0 05/06/22 07:51 Oxygen Flow Rate 3 05/02/22 03:48 BMI result Body Mass Index 30.8 General: AO X 3, no acute distress Resp: diminished bilateral, no accessory muscles used CVS: S1,S2,RRR, 1-2+ edema GI: soft, non tender, non distended Neuro: motor grossly intact, alert Psych: appropriate affect, impaired insight DS: Data Data Completed and Pending Completed studies during hospitalization [Text1]: Procedures Assistance with Respiratory Ventilation, Less than 24 Consecutive Hours, Continuous Positive Airway Pressure (05/18/20) Labs on day of discharge: Laboratory Results - last 24 hr 05/06/22 06:03 PT 39.8 H INR 3.3 H Preliminary micro results at discharge 05/02/22 07:42 Blood Culture - Preliminary Blood - Venous No growth after 48 hours. 05/02/22 07:42 Blood Culture - Preliminary Blood - Venous No growth after 48 hours. Discharge Plan Discharge Anticipated Discharge Date/Time: 05/07/22 12:00 Patient Disposition: Xfer [facility] Discharge Diagnosis: delerium, chf, uti Referrals: Janelle Medina, CHAIR LIFT OPERATOR [Primary Care Provider] - 1 Week Discharge Medications: Continued fluticasone furoate-vilanterol [Breo Ellipta] 100-25 mcg/dose blister with device 1 puff PO DAILY levothyroxine 88 mcg tablet 88 mcg PO DAILY omeprazole 20 mg capsule,delayed release(DR/EC) 20 mg PO DAILY@0630 potassium chloride 10 mEq tablet extended release 10 meq PO DAILY sennosides [senna] 8.6 mg Tablet 8.6 mg PO BEDTIME acetaminophen 325 mg Tablet 650 mg PO Q6H PRN (Reason: pain,fever) Rx Instructions: not to exceed 3 g/day ammonium lactate 12 % Lotion 1 appl TOPICAL BID magnesium hydroxide [Milk of Magnesia] 400 mg/5 mL Suspension 30 ml PO DAILY PRN (Reason: Constipation) Rx Instructions: for no BM in 3 days bisacodyl 10 mg Suppository 10 mg [place] DAILY PRN (Reason: Constipation) Rx Instructions: if milk of magnesia not effective Fleet Enema 19-7 gram/118 mL Enema 118 ml [place] DAILY PRN (Reason: Constipation) Rx Instructions: when Dulcolax suppository not effective docusate sodium 100 mg Capsule 100 mg PO BID zolpidem 5 mg tablet 1 tab PO BEDTIME PRN (Reason: Insomnia) polyethylene glycol 3350 [Miralax] 17 gram/dose Powder 17 g PO DAILY Rx Instructions: mix with 8 oz fluid albuterol sulfate 90 mcg/actuation HFA aerosol inhaler 2 puff inhalation Q6H PRN (Reason: shortness of breath or wheezing) Qty: 6.7 1RF furosemide 20 mg Tablet 20 mg PO QAM Qty: 30 0RF Rx Instructions: 04/15/22 - 04/22/22 warfarin 5 mg tablet 2.5 mg PO SUTUTHSA@18 warfarin 5 mg tablet 5 mg PO MOWEFR@1800 Protocol: Dose Management Condition: Friday (Week One) Dose/Route: 2.5 mg Instruction: 0.5 x 5 mg tablets Condition: Friday Dose/Route: 5 mg Instruction: 1 x 5 mg tablet Condition: Friday Dose/Route: 2.5 mg Instruction: 0.5 x 5 mg tablets Condition: Friday Dose/Route: 5 mg Instruction: 1 x 5 mg tablet Condition: Dose/Route: 2.5 mg Instruction: 0.5 x 5 mg tablets Condition: Friday Dose/Route: 5 mg Instruction: 1 x 5 mg tablet Condition: Friday Dose/Route: 2.5 mg Instruction: 0.5 x 5 mg tablets Condition: Friday (Week Two) Dose/Route: 2.5 mg Instruction: 0.5 x 5 mg tablets Condition: Friday Dose/Route: 5 mg Instruction: 1 x 5 mg tablet Condition: Friday Dose/Route: 2.5 mg Instruction: 0.5 x 5 mg tablets Condition: Friday Dose/Route: 5 mg Instruction: 1 x 5 mg tablet Condition: Dose/Route: 2.5 mg Instruction: 0.5 x 5 mg tablets Condition: Friday Dose/Route: 5 mg Instruction: 1 x 5 mg tablet Condition: Friday Dose/Route: 2.5 mg Instruction: 0.5 x 5 mg tablets Protocol Text: Adjustment Start Date: Friday04/30/22 INR Value: 2.9 INR Date: 04/30/22 Recheck Date: 05/02/22 Additional Instructions: cont reg dosing will eat a green todayh Rx Instructions: FROM 04/19-04/22 FOR INR 1.25 ON 04/19 diltiazem HCl 120 mg capsule,extended release 24hr 120 mg PO DAILY doxepin 10 mg capsule 10 mg PO BEDTIME PRN (Reason: Itching) terazosin 1 mg capsule 1 mg PO BEDTIME 30 Days Qty: 30 1RF Discontinued fluconazole [Diflucan] 150 mg tablet 150 mg PO Q3D PRN (Reason: yeast infection) Rx Instructions: may repeat second dose 72 hrs after first dose if symptoms persist levofloxacin 750 mg tablet 750 mg PO Q24H Qty: 6 0RF Rx Instructions: Start this medication on 05/02/2022, 1st dose given in the emergency department on 05/01/2022 Discharge Orders: Discharge Order (Routine); Ordered 05/07/22 Ordered By: Chadd Armstrong Diet: Advance to usual diet Activity on Discharge: As tolerated Stand Alone Forms: Patient Portal Discharge page Care Plan Goals: avoid delerium, maintain good fluid balance Health Concerns: chf, dementia with delerium Plan of Treatment: continue lasix 20mg, monitor weights and edema Assessment: see above
[2022-05-06 09:28] VITALS: BP 146/66; PULSE 69; O2SAT 93
[2022-05-06] MEDS: cefTRIAXone sodium 1 GM in 0.9 % Sodium Chloride 50 ML IV (09:58)
[2022-05-06] MEDS: dilTIAZem HCL CD 120 MG CAP.ER.DEG PO (09:59)
[2022-05-06] MEDS: Furosemide 20 MG TABLET PO (09:59)
[2022-05-06] MEDS: Levothyroxine Sodium 88 MCG TABLET PO (09:59)
[2022-05-06] MEDS: 0.9 % Sodium Chloride Flush 3 ML SYRINGE IVFLUSH ×3 (09:59→23:49)
--- NOTE | 2022-05-06 10:39 | P.PNIM_ITS ---
Subjective Subjective Date of Service: 05/06/22 Interval History: cc: ams interval history:waxing and waning delerium Cardiovascular Cardiovascular: Reports no additional cardiovascular complaints Respiratory Respiratory: Reports no additional respiratory complaints Physical Exam Vital Signs: Vital Signs: Last Vital Signs Temp 97.3 F 05/06/22 07:51 Pulse 69 05/06/22 09:28 Resp 16 05/06/22 07:51 BP 146/66 H 05/06/22 09:28 Pulse Ox 93 05/06/22 09:28 O2 Del Method 05/06/22 07:51 O2 Flow Rate 3.0 05/06/22 07:51 Oxygen Flow Rate 3 05/02/22 03:48 BMI result Body Mass Index 30.8 General: AO X 3, no acute distress Resp: diminished bilateral, no accessory muscles used CVS: S1,S2,RRR, 1-2+ edema GI: soft, non tender, non distended Neuro: motor grossly intact, alert Psych: appropriate affect, impaired insight Objective Data Active Medications Acetaminophen (Acetaminophen 325 Mg Tablet) 650 mg PO Q6H PRN PRN Reason: pain,fever Last Admin: 05/02/22 22:29 Dose: 650 mg Documented By: GIOVANA Albuterol Sulfate (Albuterol Sulfate 90 Mcg 8 Gm Inhaler) 2 puff INHALE RQ6H PRN PRN Reason: shortness of breath or wheezing Bisacodyl (Bisacodyl 10 Mg Supp.Rect) 10 mg [place] DAILY PRN PRN Reason: Constipation Diltiazem HCl (Diltiazem Hcl Cd 120 Mg Cap.Er.Deg) 120 mg PO DAILY [facility]; Protocol Last Admin: 05/06/22 09:59 Dose: 120 mg Documented By: GIOVANA Doxazosin Mesylate (Doxazosin Mesylate 1 Mg Tablet) 1 mg PO BEDTIME [facility] Last Admin: 05/05/22 19:51 Dose: 1 mg Documented By: SILVIO Fluticasone/Vilanterol (Fluticasone/Vilanterol 100/25 Blst.W.Dev) 1 puff INHALE RDAILY [facility] Last Admin: 05/06/22 07:28 Dose: 1 puff Documented By: ОЛЬГА Furosemide (Furosemide 20 Mg Tablet) 20 mg PO DAILY [facility]; Protocol Last Admin: 05/06/22 09:59 Dose: 20 mg Documented By: GIOVANA Ceftriaxone Sodium 1 gm/ (Sodium Chloride) 50 mls @ 100 mls/hr IV Q24H [facility] Last Infusion: 05/06/22 10:32 Dose: 0 mls/hr Documented By: GIOVANA Levothyroxine Sodium (Levothyroxine Sodium 88 Mcg Tablet) 88 mcg PO DAILY [facility] Last Admin: 05/06/22 09:59 Dose: 88 mcg Documented By: GIOVANA Omeprazole (Omeprazole 20 Mg Deon.) 20 mg PO DAILY@0630 [facility] Last Admin: 05/06/22 05:43 Dose: 20 mg Documented By: SILVIO Pharmacy Consult (Consult Rx Perform Med Rec) 1 each MISCELLANE ONCE PRN PRN Reason: Consult order Sodium Chloride (0.9 % Sodium Chloride Flush 3 Ml Syringe) 3 ml IVFLUSH QSHIFT [facility] Last Admin: 05/06/22 09:59 Dose: 3 ml Documented By: GIOVANA Warfarin Sodium (Warfarin Sodium 2.5 Mg Tablet) 2.5 mg PO SuTuThSa@1800 [facility] Warfarin Sodium (Warfarin Sodium 5 Mg Tablet) 5 mg PO MOWEFR@1800 [facility] Labs CBC & Chem 7: 05/05/22 05:46 05/05/22 05:46 Labs: Laboratory Results - last 24 hr 05/06/22 06:03 PT 39.8 H INR 3.3 H Assessment and Plan (1) Acute encephalopathy: Status: Acute Plan 87F pmh hypoxic respiratory failure secondary to COPD on 2.5 L home oxygen, chronic atrial fibrillation on Coumadin, chronic diastolic CHF, chronic Nelson for urinary retention, hypertension, presented with confusion Metabolic encephalopathy Possibly due to urinary tract infection associated with chronic Nelson versus medication induced delirium Continue ceftriaxone cultures - urine growing enterococcus faecium and faecalis Chronic hypoxic respiratory failure secondary to COPD Continue inhalers Acute on chronic diastolic CHF diuresed well, now on po lasix, monitor electrolytes hypokalemia replaced Chronic atrial fibrillation Diltiazem, Coumadin, monitor INR Morbid obesity Weight loss recommended Hypertension Continue diltiazem and terazosin DNR/DNI reason for continued hospitalization:determining dispo, hospice, STR, vs home Quality Stroke Does the patient have a stroke diagnosis?: No VTE Prior VTE?: No VTE Risk Level:: Medical - moderate - high VTE Device Contraindication: Treatment Not Indicated VTE Drug Contraindication: N/A - Med Ordered
[2022-05-06 15:22] VITALS: BP 111/56; PULSE 64; RESP 18; TEMP 36.3; O2SAT 97
--- NOTE | 2022-05-06 15:42 | MHC.SL.SWA ---
Addendum entered and electronically signed by Sheron Swenson MA, CCC-BOWLING BALL ASSEMBLER 05/06/22 16:04: D.S. Original Note: Risk of Aspiration Due to: Medically Fragile Poor PO Intake Weak Voice Dysphasia Diet Status: Upgrade solids to NDD2 Liquid Consistency and Strategies for Safe Swallow: Liquid Intake Recommendation: [place] Thick Liquid Intake Strategies: Small Sips No Straws Solid Food Consistency: Dietary Recommendations: Grnd/Mech Altered (NDD2) Additional Modifications to Solid Foods: Strict aspiration precautions. Total supervision to monitor for any overt s/s of aspiration. If pt demonstrates any overt s/s of aspiration, hold tray. Pt may benefit from MBSS. Oral Medication Intake: Whole with Puree Please contact the pharmacy regarding appropriate crushable or liquid drug formulations that are available whenever modified delivery is recommended. Compensatory Strategies and Precautions to be Taken for Safe Swallow: Sitting Upright (90 deg) No Straw Liquids from Cup Liquids from Spoon Small Bites and Sips Alternate Liquids/Solids Rate of Ingestion Change Supervision While Eating and Drinking for Safe Swallow: Intermittent Supervision Foods to Avoid: Avoid sticky, hard, and tough to chew foods. Swallowing Recommended Treatments: Compens. Strategy Educat. Recommendation for Speech: Inpatient Speech Therapy Modified Barium Swallow Study - Inpatient Modified Barium Swallow Study - Outpatient Comment: Recommend UPGRADE to GROUND/MECH ALTERED (NDD2). Continue with NECTAR THICK liquid. Pills WHOLE in PUREE. Recommend intermittent supervision to monitor for s/s of aspiration and provide cueing for safe eating strategies. Pt observed to initiate conversation while bolus remained in oral cavity. Pt should be cued to converse after swallowing. Pt observed to take chain sips of liquid. Pt should be cued to take small individual sips of liquid. Recommend pt to continue dysphagia tx at next level of care to monitor toleration and possible upgrade of diet. Recommend consult with GI for possible reflux d/t belching behavior. Pt may benefit from MBSS. Cloth Laminating Supervisor Clinican/Clinical Fellow: Yes: Clotilde Reno M.A., CF-BOWLING BALL ASSEMBLER Supervisory Statement: I have reviewed and agree with the student/clinical fellow's documentation: Yes Speech Language Pathologist: Sheron Swenson M.A., CCC-BOWLING BALL ASSEMBLER
--- NOTE | 2022-05-06 15:47 | MHC.CM.PN ---
Addendum entered by Hazel Abrams 05/06/22 16:20: [facility]ER[facility] B[facility], WILL NEED COVID PCR Original Note: EMR REVIEWED MD REQUESTS HOSPICE INFORMATIONAL . [facility]PICE [facility] STAFF SPOKE WITH NEPHEW/HCP NEPHEW/PATIENT HAVE DECIDED THEY WOULD LIKE TO GO [facility] . REFERRALS PLACED, AWAITING BED OFFERS. WILL CONTINUE TO FOLLOW FOR PLAN. [facility] WILL BRING COPY OF HCP IN .
[2022-05-06] MEDS: traZODone HCL 50 MG TABLET PO (20:41)
[2022-05-06] MEDS: Doxazosin Mesylate 1 MG TABLET PO (20:41)
[2022-05-07] VITALS: BP 127/59; PULSE 66; RESP 17; TEMP 36.1; O2SAT 95
[2022-05-07 04:51] VITALS: BP 131/63; PULSE 70; RESP 17; TEMP 36.4; O2SAT 95
[2022-05-07] MEDS: Omeprazole 20 MG CAPSULE.DR PO (05:53)
[2022-05-07 07:04] LABS: INTERNATIONAL NORM RATIO 2.9 (0.9-1.1); Prothrombin Time 34.4 SEC (10.0-13.1)
[2022-05-07 07:31] VITALS: BP 129/63; PULSE 61; RESP 20; TEMP 36.1; O2SAT 97
[2022-05-07] MEDS: Fluticasone/Vilanterol 100/25 BLST.W.DEV 1 PUFF INHALE (07:47)
[2022-05-07 07:48] VITALS: PULSE 62; RESP 18; O2SAT 96
--- NOTE | 2022-05-07 09:45 | MHC.CM.PN ---
IMM delivered Pt medically cleared for dc, will transfer to [facility], [facility]/ HCP made aware. will have rapid Covid before dc. Ambulance booked for 11:30 am, [facility] [place] liaison aware.
[2022-05-07] MEDS: Furosemide 20 MG TABLET PO (09:50)
[2022-05-07] MEDS: dilTIAZem HCL CD 120 MG CAP.ER.DEG PO (09:50)
[2022-05-07] MEDS: Levothyroxine Sodium 88 MCG TABLET PO (09:50)
[2022-05-07] MEDS: 0.9 % Sodium Chloride Flush 3 ML SYRINGE IVFLUSH (09:55)
[2022-05-07 10:30] LABS: COVID-19 Test Negative (Negative); IDNOW Serial# 16C4AD1C
--- NOTE | 2022-05-07 15:28 | MHC.SL.SWA ---
Addendum entered and electronically signed by LINDA Montgomery 05/07/22 17:54: S.w. Original Note: Speech Pathologist Impression:Oropharyngeal Phase Dysphagia Risk of Aspiration Due to: Medically Fragile Poor PO Intake Weak Voice Dysphasia Diet Status: No Change Liquid Consistency and Strategies for Safe Swallow: Liquid Intake Recommendation: [place] Thick Liquid Intake Strategies: Small Sips No Straws Solid Food Consistency: Dietary Recommendations: Grnd/Mech Altered (NDD2) Additional Modifications to Solid Foods: Strict aspiration precautions. Total supervision to monitor for any overt s/s of aspiration. If pt demonstrates any overt s/s of aspiration, hold tray. Pt may benefit from MBSS. Oral Medication Intake: Crushed with Puree Please contact the pharmacy regarding appropriate crushable or liquid drug formulations that are available whenever modified delivery is recommended. Compensatory Strategies and Precautions to be Taken for Safe Swallow: Sitting Upright (90 deg) No Straw Liquids from Cup Liquids from Spoon Small Bites and Sips Alternate Liquids/Solids Rate of Ingestion Change Supervision While Eating and Drinking for Safe Swallow: Total Supervision (1:1) Foods to Avoid: Avoid ground peaches from kitchen and similar consistencies. Swallowing Recommended Treatments: Compens. Strategy Educat. Recommendation for Speech: Inpatient Speech Therapy Modified Barium Swallow Study - Inpatient Modified Barium Swallow Study - Outpatient Comment: Recommend continue with GROUND/MECH ALTERED (NDD2) and NECTAR THICK liquid. D/t reported difficulty w/ pills, recommend pills CRUSHED in PUREE. D/t decline in mental status as well as increased confusion and anxiety TOTAL 1:1 SUPERVISION during all PO is recommended. Monitor for s/s of aspiration. Provide cues for safe eating (don't talk while eating or drinking, take small individual sips of liquid). Recommend pt to continue dysphagia tx at next level of care to monitor toleration and possible upgrade of diet. Recommend consult with GI for possible reflux d/t belching behavior. Pt may benefit from MBSS. Civil Defense Director Clinican/Clinical Fellow: Yes: Clotilde Reno M.A., CF-SITE LEAD Supervisory Statement: I have reviewed and agree with the student/clinical fellow's documentation: Yes Speech Language Pathologist: Sheron Swenson M.A., CCC-SITE LEAD
== END 2022-05-07 15:40 | disposition skilled nursing facility (03) | DRG 698 ==
LOC: HO.ED 10:47 → HO.EDOVER 12:31 → HO.S3 18:47
PROVIDERS: Admitting Provider Internal Medicine; Emergency Provider Emergency Medicine; PCP Nurse Practitioner Family; Visit Provider Internal Medicine
DX: T83.511A Infection and inflammatory reaction due to indwelling urethral catheter, initial encounter (principal); G92.8 Other toxic encephalopathy; G93.41 Metabolic encephalopathy; I50.33 Acute on chronic diastolic (congestive) heart failure; F05 Delirium due to known physiological condition; I48.20 Chronic atrial fibrillation, unspecified; J96.11 Chronic respiratory failure with hypoxia; J44.1 Chronic obstructive pulmonary disease with (acute) exacerbation; N39.0 Urinary tract infection, site not specified; Z66 Do not resuscitate; I11.0 Hypertensive heart disease with heart failure; R33.9 Retention of urine, unspecified; B95.2 Enterococcus as the cause of diseases classified elsewhere; E87.6 Hypokalemia; T36.95XA Adverse effect of unspecified systemic antibiotic, initial encounter; G30.9 Alzheimer's disease, unspecified; F06.70 Mild neurocognitive disorder due to known physiological condition without behavioral disturbance; E66.01 Morbid (severe) obesity due to excess calories; Z68.30 Body mass index [BMI] 30.0-30.9, adult; Y73.1 Therapeutic (nonsurgical) and rehabilitative gastroenterology and urology devices associated with adverse incidents; Z20.822 Contact with and (suspected) exposure to COVID-19; Z95.0 Presence of cardiac pacemaker; Z95.2 Presence of prosthetic heart valve; Z91.14 Patient's other noncompliance with medication regimen; Z99.81 Dependence on supplemental oxygen; Z87.891 Personal history of nicotine dependence; Z79.01 Long term (current) use of anticoagulants; Z79.51 Long term (current) use of inhaled steroids; Z79.899 Other long term (current) drug therapy
CPT/HCPCS: 36415; 70450; 71045; 72125; 74176; 80048; 80076; 81001; 82550; 82803; 83605; 83690; 83735; 83880; 84443; 84484; 85025; 85027; 85610; 87040; 87086; 87088; 87186; 87635; 92610; 93005; 94640; 96360; 96365; 96375; 97162; 99284; 99285; C1758; J0696; J1940

== ENCOUNTER → 2022-06-07 10:35 | Outpatient (BNVA) | payer MEDICARE, OTHER, SELFPAY | PROVIDERS: PCP Nurse Practitioner Family; Visit Provider Urology | DX: R33.9 Retention of urine, unspecified (principal); N39.0 Urinary tract infection, site not specified | CPT/HCPCS: 52000; 99212 ==

== ENCOUNTER → 2022-06-21 09:30 | Outpatient (BNVA) | payer MEDICARE, OTHER, SELFPAY | PROVIDERS: PCP Nurse Practitioner Family; Visit Provider Urology | DX: R33.9 Retention of urine, unspecified (principal); N39.0 Urinary tract infection, site not specified | CPT/HCPCS: Q3014 ==